=== PATIENT | male | born 1945 | race Caucasian/White ===

== ENCOUNTER → 2017-11-15 | Outpatient (CLI) | payer MEDICARE | END | disposition home or self-care (01) | LOC: LABWHC1 06:33 | PROVIDERS: ATTEND Internal Medicine Cardiovascular Disease | DX: I25.10 Atherosclerotic heart disease of native coronary artery without angina pectoris (principal) | CPT/HCPCS: 36415; 83704 ==

== ENCOUNTER → 2022-12-19 | Outpatient (CLI) | payer MEDICARE ==
--- NOTE | 2022-12-20 20:11 | MR ---
EXAMINATION TYPE: MR brain wo/w con DATE OF EXAM: 12/19/2022 8:22 PM CLINICAL INDICATION:Male, 77 years old with history of I63.9; Stroke, hit his head in a fall, forgetf ul COMPARISON: MRI brain 09/10/2015 TECHNIQUE: Multi planar, multi sequence imaging was performed through the brain including: T1, T2, In version recovery, susceptibility weighted imaging and gradient echo imaging and Diffusion weighted im aging. The patient was then given intravenous contrast and multi planar, T1 fat-saturation images wer e obtained. IV Contrast: 9 cc Gadavist FINDINGS: Cerebral atrophy with proportional dilation of the ventricular system. Diffusion-weighted imaging ozzie ws no evidence of restricted diffusion to suggest acute/subacute infarct. Intracranial arterial flow voids are maintained. Midline structures show no abnormality. Scattered foci and confluent areas of h igh T2 signal intensity are seen within the periventricular white matter. The susceptibility weighted images do not reveal any evidence for micro-hemorrhage. After administration of gadolinium, no abnor mal enhancement is seen. The bone marrow signal is within normal limits. Paranasal sinuses and mastoid air cells: Mucosal thickening of the left maxillary sinus. Trace bilate ral high T2 signal within the mastoid air cells. Visualized orbits: Orbital contents are intact. IMPRESSION: 1. No evidence of intracranial mass, acute/subacute infarct, or abnormal enhancement. 2. Nonspecific white matter changes, these have mildly progressed from 2016. Likely related to small vessel ischemic disease 3. Trace mastoid air cell effusions bilaterally.
== END | disposition home or self-care (01) ==
LOC: RADMRIMAIN 19:06
PROVIDERS: ATTEND Internal Medicine Geriatric Medicine
DX: I63.9 Cerebral infarction, unspecified (principal); I48.91 Unspecified atrial fibrillation; R90.82 White matter disease, unspecified
CPT/HCPCS: 70553; A9585

== ENCOUNTER → 2023-01-04 | Outpatient (CLI) | payer MEDICARE ==
--- NOTE | 2023-01-04 15:38 | US ---
EXAMINATION TYPE: US carotid duplex BILAT DATE OF EXAM: 01/04/2023 COMPARISON: Carotid ultrasound 09/13/2014 CLINICAL INDICATION: Male, 77 years old with history of I639 STROKE; Patient states having history of stroke. TECHNIQUE: Carotid duplex ultrasound examination. Indirect Doppler criteria was utilized. FINDINGS: EXAM MEASUREMENTS: RIGHT: Peak Systolic Velocity (PSV) cm/sec ----- Right CCA: 45.9 ----- Right ICA: 87.4 ----- Right ECA: 58.3 ICA/CCA ratio: 1.9 RIGHT: End Diastole cm/sec ----- Right CCA: 15.1 ----- Right ICA: 31.9 ----- Right ECA: 8.5 LEFT: Peak Systolic Velocity (PSV) cm/sec ----- Left CCA: 57.3 ----- Left ICA: 57.7 ----- Left ECA: 50.3 ICA/CCA ratio: 1.0 LEFT: End Diastole cm/sec ----- Left CCA: 15.0 ----- Left ICA: 27.4 ----- Left ECA: 0.0 VERTEBRALS (direction of flow): Right Vertebral: Antegrade Left Vertebral: Antegrade Rhythm: Arrhythmia RD PROJECT MANAGER NOTES: No significant stenosis and elevated velocities seen. Plaque and wall thickening seen in left bulb. IMPRESSION: Mild atherosclerotic plaque within the left carotid bulb. No ultrasound evidence for hemodynamically significant stenosis of the bilateral internal carotid arteries. Criteria for Assigning % of Stenosis / Diameter reduction (Estimation based on the indirect measurements of the internal carotid artery velocities (ICA PSV). 1. Normal (no stenosis)=ICA PSV < 125 cm/s: ratio < 2.0: ICA EDV<40 cm/s. 2. Less than 50% stenosis=ICA PSV < 125 cm/s: ratio < 2.0: ICA EDV<40 cm/s. 3. 50 to 69% stenosis=ICA PSV of 125 to 230 cm/s: ration 2.0 ? 4.0: ICA EDV 40-100 cm/s. 4. Greater than 70% stenosis to near occlusion= ICA PSV > 230 cm/s: ratio > 4.0: ICA EDV > 100 cm/s. 5. Near occlusion= ICA PSV velocities may be low or undetectable: variable ratio and ICA EDV. 6. Total occlusion=unable to detect flow.
--- NOTE | 2023-01-05 18:04 | CA ---
Transthoracic Echo Report Name: Hugh Cortés Age: 77 Gender: M : 1945 Exam Date: 01/04/2023 13:39 Exam Location: [facility] Ht (in): 70 Wt (lb): 190 Ordering Physician: Delonte Vasquez MD Attending/Referring Phys: Layer Out Elayne Santos RDCS Procedure CPT: Indications: I48.91, I63.9 Cardiac Hx: Technical Quality: Technically difficult study Contrast 1: Lumason Total Dose (mL): 4 Contrast 2: Total Dose (mL): MEASUREMENTS (Male / Female) Normal Values 2D ECHO LV Diastolic Diameter PLAX 3.9 cm 4.2 - 5.9 / 3.9 - 5.3 cm LV Systolic Diameter PLAX 3.1 cm IVS Diastolic Thickness 1.3 cm 0.6 - 1.0 / 0.6 - 0.9 cm LVPW Diastolic Thickness 1.2 cm 0.6 - 1.0 / 0.6 - 0.9 cm LV Relative Wall Thickness 0.6 RV Internal Dim ED PLAX 3.1 cm LV Diastolic Volume MOD BP 65.7 cm??? 67 - 155 / 56 - 104 cm??? LV Systolic Volume MOD BP 30.9 cm??? 22 - 58 / 19 - 49 cm??? LV Ejection Fraction MOD BP 53.0 % >= 55 % LV Cardiac Index MOD BP 1893.9 cm???/min???m??? LV Diastolic Volume MOD 4C 73.2 cm??? LV Systolic Volume MOD 4C 27.7 cm??? LV Ejection Fraction MOD 4C 62.2 % LV Cardiac Index MOD 4C 2475.2 cm???/min???m??? LV Diastolic Length 4C 8.0 cm LV Systolic Length 4C 6.3 cm LV Diastolic Volume MOD 2C 52.2 cm??? LV Systolic Volume MOD 2C 33.6 cm??? LV Ejection Fraction MOD 2C 35.6 % LV Cardiac Index MOD 2C 1011.5 cm???/min???m??? LV Diastolic Length 2C 6.9 cm LV Systolic Length 2C 6.0 cm LA Volume 61.6 cm??? 18 - 58 / 22 - 52 cm??? DOPPLER AV Peak Velocity 117.4 cm/s AV Peak Gradient 5.5 mmHg LVOT Peak Velocity 81.1 cm/s LVOT Peak Gradient 2.6 mmHg MV E' Velocity 5.6 cm/s TR Peak Velocity 205.5 cm/s TR Peak Gradient 16.9 mmHg Right Ventricular Systolic Press 21.4 mmHg FINDINGS Left Ventricle Mildly increased left ventricular wall thickness. Left ventricular cavity size normal. No obvious regional wall motion abnormalities. Borderline left ventricular systolic function..left ventricular ejection fraction is estimated at 50-55 %. Right Ventricle Normal right ventricular size and function. Right ventricular systolic pressure within normal limits. Right Atrium Normal right atrial size. Left Atrium Mildly increased left atrial volume. Mildly increased left atrial area. Mitral Valve Structurally normal mitral valve. Mild mitral regurgitation.mitral annular calcification. Aortic Valve Trileaflet aortic valve. No aortic valve stenosis or regurgitation.aortic valve sclerosis. Tricuspid Valve Structurally normal tricuspid valve. Mild tricuspid regurgitation. Pulmonic Valve Trace pulmonic regurgitation. Pericardium No pericardial effusion. Aorta Normal size aortic root and proximal ascending aorta. CONCLUSIONS 1. Normal left ventricular size with borderline systolic function 2. Mild mitral and tricuspid regurgitation with normal right ventricular systolic pressure. Previewed by: Dr. Ancelmo Lindsay MD (Electronically Signed) Final Date: 05 January 2023 18:03
== END | disposition home or self-care (01) ==
LOC: RADECHMAIN 13:25
PROVIDERS: ATTEND Internal Medicine Geriatric Medicine
DX: I65.22 Occlusion and stenosis of left carotid artery (principal); I48.91 Unspecified atrial fibrillation; I63.9 Cerebral infarction, unspecified
CPT/HCPCS: 93880; C8929; Q9950; 93306

== ENCOUNTER 2023-03-15 09:48 | Observation (INO) | payer MEDICARE ==
[2023-03-15 09:57] LABS: Glucose,Whole Blood 122 mg/dL (70-110)
[2023-03-15] MEDS ORDERED: SODIUM CHLORIDE 0.9% 500 ML 500 ML IV STA (10:11)
[2023-03-15] MEDS ORDERED: DIPH,PERTUS(ACELL)TETVAC-LF 0.5 ML VIAL IM ONE (10:12)
--- NOTE | 2023-03-15 10:17 | ED ---
General Adult HPI - General Chief complaint: Syncope Stated complaint: Syncope Time Seen by Provider: 03/15/23 09:59 Source: patient, family, RN notes reviewed, old records reviewed Mode of arrival: wheelchair Limitations: no limitations - History of Present Illness Initial comments: 78-year-old male presents for evaluation of syncope. Patient reported that he did not feel well to his possible nausea without vomiting. He had stood up from the table and passed out with head injury and scalp laceration. Patient denies current anticoagulation. He has a history of coronary artery disease status post bypass. No central chest pain. No palpitations. No current nausea. No vomiting. No diarrhea. No fever. - Related Data Previous Rx's Medication Instructions Recorded Amiodarone [Cordarone] 200 mg PO TID #90 tab 09/22/14 Aspirin EC [Ecotrin Low Dose] 81 mg PO DAILY #30 tablet. 09/22/14 Atorvastatin [Lipitor] 80 mg PO DAILY #30 tab 09/22/14 HYDROcodone/APAP 7.5-325MG [[place] 1 each PO Q4H PRN #30 tab 09/22/14 7.5-325] Metoprolol Tartrate [Lopressor] 25 mg PO TID #90 tab 09/22/14 Allergies Allergy/AdvReac Type Severity Reaction Status Date / Time No Known Allergies Allergy Verified 03/15/23 12:10 Review of Systems ROS Statement: Those systems with pertinent positive or pertinent negative responses have been documented in the HPI. ROS Other: All systems not noted in ROS Statement are negative. Past Medical History Past Medical History: Sleep Apnea/CPAP/BIPAP Additional Past Medical History / Comment(s): 09/12/14 Pt presented to [facility] ER with chest heavinessand feeling woozy- nausea, while exercising at the [employer] today. Other HX: KAMRAN-pt has CPAP and a mouth ashley for this-he does not use either very much because they don't seem to help, sinusitis, sinus headaches, nasal fracture as a young man, sleep disturbance. History of Any Multi-Drug Resistant Organisms: None Reported Past Surgical History: Adenoidectomy, Tonsillectomy Additional Past Surgical History / Comment(s): PMH: INSOMNIA Past Anesthesia/Blood Transfusion Reactions: No Reported Reaction Past Psychological History: No Psychological Hx Reported Smoking Status: Never smoker Past Alcohol Use History: None Reported Past Drug Use History: None Reported - Past Family History Father Family Medical History: Coronary Artery Disease (CAD), Myocardial Infarction (MO) Additional Family Medical History / Comment(s): Father of a MO at 47 yrs of age. Mother Family Medical History: Cancer Additional Family Medical History / Comment(s): Mother of lung cancer at age 71yrs. General Exam General appearance: alert, in no apparent distress Head exam: Present: other (3 cm occipital laceration with minimal bleeding) Eye exam: Present: normal appearance, PERRL Neck exam: Present: normal inspection. Absent: tenderness, meningismus Respiratory exam: Present: normal lung sounds bilaterally. Absent: respiratory distress Cardiovascular Exam: Present: tachycardia, irregular rhythm GI/Abdominal exam: Present: soft. Absent: distended, tenderness, guarding Extremities exam: Present: normal inspection, normal capillary refill. Absent: pedal edema, calf tenderness Neurological exam: Present: alert, oriented X3, CN II-XII intact. Absent: motor sensory deficit Psychiatric exam: Present: normal affect, normal mood Skin exam: Present: warm, dry. Absent: cyanosis, diaphoretic Course Vital Signs 03/15/23 09:50 Temperature 97.5 F L Pulse Rate 125 H Respiratory 18 Rate Blood Pressure 124/69 O2 Sat by Pulse 98 Oximetry Procedures - Laceration Laceration #1 Consent Obtained: verbal consent Indication: laceration Site: scalp Size (cm): 3 Description: linear Pre-repair: wound explored, irrigated extensively, deep structures intact Type of Sutures: other (Placido) Number of Sutures: 3 Technique: simple, interrupted Patient Tolerated Procedure: well Medical Decision Making - Medical Decision Making Was pt. sent in by a medical professional or institution (, PA, TAX CREDIT LEASING CONSULTANT, urgent care, hospital, or longterm...) When possible be specific @ -No Did you speak to anyone other than the patient for history (EMS, parent, family, police, friend...)? What history was obtained from this source @ -No Did you review nursing and triage notes (agree or disagree)? Why? @ -I reviewed and agree with nursing and triage notes Were old charts reviewed (outside hosp., previous admission, EMS record, old EKG, old radiological studies, urgent care reports/EKG's, longterm records)? Report findings @ -No old charts were reviewed Differential Diagnosis (chest pain, altered mental status, abdominal pain women, abdominal pain men, vaginal bleeding, weakness, fever, dyspnea, syncope, headache, dizziness, GI bleed, back pain, seizure, CVA, palpatations, mental health, musculoskeletal)? @ Differential Syncope: Valvular disease, hypertrophic cardiomyopathy, pulmonary embolism, tamponade, tachycardia, bradycardia, MO, hypovolemia, hemorrhage, dissection, anemia, intracranial hemorrhage, seizure, hypoglycemia, carbon monoxide poisoning, this is not meant to be an all-inclusive list. EKG interpreted by me (3pts min.). @ -[Atrial flutter with cerebral AV block, rate of 108, QRS duration 122, QTC [address] segment elevation. X-rays interpreted by me (1pt min.). @ -[Chest x-ray negative for acute cardio pulmonary findings. CT interpreted by me (1pt min.). @CT negative for intracranial hemorrhage or mass effect U/S interpreted by me (1pt. min.). @ -None done What testing was considered but not performed or refused? (CT, X-rays, U/S, labs)? Why? @ -None What meds were considered but not given or refused? Why? @ -None Did you discuss the management of the patient with other professionals (professionals i.e. , PA, TAX CREDIT LEASING CONSULTANT, lab, RT, psych nurse, social media project manager, news video editor, teacher, collection officer, immigration case worker)? Give summary @ Dr. Corrigan Was smoking cessation discussed for >3mins.? @ -No Was critical care preformed (if so, how long)? @ Yes with 35 minutes Were there social determinants of health that impacted care today? How? (Homelessness, low income, unemployed, alcoholism, drug addiction, transportation, low edu. Level, literacy, decrease access to med. care, detention, rehab)? @ -No Was there de-escalation of care discussed even if they declined (Discuss DNR or withdrawal of care, Hospice)? DNR status @ -No What co-morbidities impacted this encounter? (DM, HTN, Smoking, COPD, CAD, Cancer, CVA, ARF, Chemo, Hep., AIDS, mental health diagnosis, sleep apnea, morbid obesity)? @ -Coronary artery disease Was patient admitted / discharged? Hospital course, mention meds given and route, prescriptions, significant lab abnormalities, going to OR and other pertinent info. @ -[78-year-old male presents after syncopal episode. Patient found to be in atrial flutter with rapid ventricular response. No prior history. No chest pain, no dyspnea, no palpitations. He did have a head injury with occipital laceration. This is repaired with [address] is negative for intracranial hemorrhage. Patient's rate is down trending while in the emergency department without treatment.. Hold anticoagulation at this time secondary to head trauma. Will admit for telemetry, cardiology consultation, echo. Undiagnosed new problem with uncertain prognosis? @ -No Drug Therapy requiring intensive monitoring for toxicity (Heparin, Nitro, Insulin, Cardizem)? @ -No Were any procedures done? @ -[Yes, laceration repair Diagnosis/symptom? @ -[Syncope, atrial flutter new-onset Acute, or Chronic, or Acute on Chronic? @ -[Acute Uncomplicated (without systemic symptoms) or Complicated (systemic symptoms)? @ -[Complicated Side effects of treatment? @ -No Exacerbation, Progression, or Severe Exacerbation? @ -No Poses a threat to life or bodily function? How? (Chest pain, USA, MO, pneumonia, PE, COPD, DKA, ARF, appy, cholecystitis, CVA, Diverticulitis, Homicidal, S uicidal, threat to staff... and all critical care pts) @ -[Yes, syncope, arrhythmia - Lab Data Result diagrams: 03/15/23 10:21 03/15/23 10:21 Lab Results 03/15/23 03/15/23 03/15/23 Range/Units 09:55 10:21 10:21 WBC 13.8 H (3.8-10.6) k/uL RBC 4.41 (4.30-5.90) m/uL Hgb 15.0 (13.0-17.5) gm/dL Hct 45.3 (39.0-53.0) % MCV 102.5 H (80.0-100.0) fL MCH 34.0 (25.0-35.0) pg MCHC 33.1 (31.0-37.0) g/dL RDW 13.9 (11.5-15.5) % Plt Count 191 (150-450) k/uL MPV 7.5 Neutrophils % 81 % Lymphocytes % 13 % Monocytes % 3 % Eosinophils % 1 % Basophils % 0 % Neutrophils # 11.2 H (1.3-7.7) k/uL Lymphocytes # 1.8 (1.0-4.8) k/uL Monocytes # 0.5 (0-1.0) k/uL Eosinophils # 0.2 (0-0.7) k/uL Basophils # 0.0 (0-0.2) k/uL Macrocytosis Slight PT (9.0-12.0) sec INR (<1.2) APTT (22.0-30.0) sec Sodium 138 (137-145) mmol/L Potassium 4.3 (3.5-5.1) mmol/L Chloride 102 (98-107) mmol/L Carbon Dioxide 27 (22-30) mmol/L Anion Gap 9 mmol/L BUN 20 (9-20) mg/dL Creatinine 1.02 (0.66-1.25) mg/dL Est GFR (CKD-EPI)AfAm 81 (>60 ml/min/1.73 sqM) Est GFR (CKD-EPI)NonAf 70 (>60 ml/min/1.73 sqM) Glucose 137 H (74-99) mg/dL POC Glucose (mg/dL) 122 H (70-110) mg/dL POC Glu Wet Finisher ID September Calcium 9.1 (8.4-10.2) mg/dL Magnesium 2.4 H (1.6-2.3) mg/dL Total Bilirubin 1.4 H (0.2-1.3) mg/dL AST 28 (17-59) U/L ALT 18 (4-49) U/L Alkaline Phosphatase 99 (38-126) U/L Troponin I (0.000-0.034) ng/mL Total Protein 7.7 (6.3-8.2) g/dL Albumin 4.1 (3.5-5.0) g/dL TSH 4.320 (0.465-4.680) mIU/L Urine Color Urine Appearance (Clear) Urine pH (5.0-8.0) Ur Specific [place] (1.001-1.035) Urine Protein (Negative) Urine Glucose (UA) (Negative) Urine Ketones (Negative) Urine Blood (Negative) Urine Nitrite (Negative) Urine Bilirubin (Negative) Urine Urobilinogen (<2.0) mg/dL Ur Leukocyte Esterase (Negative) 03/15/23 03/15/23 03/15/23 Range/Units 10:21 10:21 10:54 WBC (3.8-10.6) k/uL RBC (4.30-5.90) m/uL Hgb (13.0-17.5) gm/dL Hct (39.0-53.0) % MCV (80.0-100.0) fL MCH (25.0-35.0) pg MCHC (31.0-37.0) g/dL RDW (11.5-15.5) % Plt Count (150-450) k/uL MPV Neutrophils % % Lymphocytes % % Monocytes % % Eosinophils % % Basophils % % Neutrophils # (1.3-7.7) k/uL Lymphocytes # (1.0-4.8) k/uL Monocytes # (0-1.0) k/uL Eosinophils # (0-0.7) k/uL Basophils # (0-0.2) k/uL Macrocytosis PT 12.1 H (9.0-12.0) sec INR 1.2 H (<1.2) APTT 25.2 (22.0-30.0) sec Sodium (137-145) mmol/L Potassium (3.5-5.1) mmol/L Chloride (98-107) mmol/L Carbon Dioxide (22-30) mmol/L Anion Gap mmol/L BUN (9-20) mg/dL Creatinine (0.66-1.25) mg/dL Est GFR (CKD-EPI)AfAm (>60 ml/min/1.73 sqM) Est GFR (CKD-EPI)NonAf (>60 ml/min/1.73 sqM) Glucose (74-99) mg/dL POC Glucose (mg/dL) (70-110) mg/dL POC Glu Wet Finisher ID Calcium (8.4-10.2) mg/dL Magnesium (1.6-2.3) mg/dL Total Bilirubin (0.2-1.3) mg/dL AST (17-59) U/L ALT (4-49) U/L Alkaline Phosphatase (38-126) U/L Troponin I <0.012 (0.000-0.034) ng/mL Total Protein (6.3-8.2) g/dL Albumin (3.5-5.0) g/dL TSH (0.465-4.680) mIU/L Urine Color Light Yellow Urine Appearance Clear (Clear) Urine pH 6.5 (5.0-8.0) Ur Specific [place] 1.012 (1.001-1.035) Urine Protein Negative (Negative) Urine Glucose (UA) Negative (Negative) Urine Ketones Negative (Negative) Urine Blood Negative (Negative) Urine Nitrite Negative (Negative) Urine Bilirubin Negative (Negative) Urine Urobilinogen <2.0 (<2.0) mg/dL Ur Leukocyte Esterase Negative (Negative) Critical Care Time Critical Care Time: Yes Total Critical Care Time: 35 Disposition Clinical Impression: New onset atrial flutter, Syncope Disposition: ADMITTED IP TO THIS [facility] Condition: Stable Is patient prescribed a controlled substance at d/c from ED?: No Referrals: Delonte Vasquez MD [Primary Care Provider] - 1-2 days Time of Disposition: 12:13
[2023-03-15 10:30] LABS: Basophils % (A) 0 %; Eosinophils # (A) 0.2 k/uL (0-0.7); Eosinophils % (A) 1 %; HCT 45.3 % (39.0-53.0); Lymphocytes # (A) 1.8 k/uL (1.0-4.8); Lymphocytes % (A) 13 %; MCHC 33.1 g/dL (31.0-37.0); MCV 102.5 fL (80.0-100.0); Macrocytosis Slight; Mean Platelet Volume 7.5; Monocytes # (A) 0.5 k/uL (0-1.0); Monocytes % (A) 3 %; Neutrophils # (A) 11.2 k/uL (1.3-7.7); Neutrophils % (A) 81 %; Platelet Count 191 k/uL (150-450); RBC 4.41 m/uL (4.30-5.90); RDW 13.9 % (11.5-15.5); WBC 13.8 k/uL (3.8-10.6)
--- NOTE | 2023-03-15 10:45 | CT ---
EXAMINATION TYPE: CT brain cspine wo con CT DLP: 1389.4 mGycm, Automated exposure control for dose reduction was used. DATE OF EXAM: 03/15/2023 10:33 AM COMPARISON: None. CLINICAL INDICATION:Male, 78 years old with history of syncope; syncope with fall, lac to posterior h ead TECHNIQUE: Brain: Multiple axial CT images of the brain were obtained without IV contrast. Cspine: Axial CT images from the skull base to the inferior aspect of T2 we obtained without intraven ous contrast. Coronal and sagittal reformatted images were also reviewed. FINDINGS: Brain: Extra-axial spaces: No abnormal extra-axial fluid collections. Ventricular system: Dilatation in proportion to cerebral atrophy. Cerebral parenchyma: No acute intraparenchymal hemorrhage or mass effect. The bryant-white junction is well differentiated. Scattered hypoattenuating areas are seen within the white matter. Cerebellum: Unremarkable. Mass effect: No evidence of midline shift. Intracranial vasculature: Atherosclerotic calcifications of the intracranial vessels. Soft tissues: Posterior scalp laceration present. No evidence of fracture. Calvarium/osseous structures: No depressed skull fracture. Paranasal sinuses and mastoid air cells: Clear. Visualized orbits: Orbital contents are intact. Cervical spine: Fracture: None comment remote left rib one fracture with callus formation. Osseous structures: Multilevel degenerative disc disease changes with endplate spurring and disc oste ophyte complex's. Vertebral alignment: Within normal limits. Spinal canal/Neural Foramina: No evidence of significant spinal canal narrowing. No evidence for sign ificant neural foraminal stenosis. Neck soft tissues: Prevertebral soft tissues are within normal limits. Other: The airway is patent. The lung apices are clear. Atherosclerosis of the carotid bifurcations. IMPRESSION: 1. No acute intracranial process. 2. Nonspecific white matter changes, likely secondary to chronic small vessel ischemic disease. 3. No evidence of cervical spine fracture. 4. Mild multilevel degenerative disc disease. 5. Posterior scalp laceration present. No evidence of fracture.
--- NOTE | 2023-03-15 10:45 | XR ---
EXAMINATION TYPE: XR chest 2V DATE OF EXAM: 03/15/2023 10:38 AM COMPARISON: Chest radiographs from 09/22/2014 TECHNIQUE: XR chest 2V Frontal and lateral views of the chest. CLINICAL INDICATION:Male, 78 years old with history of syncope; FINDINGS: Lungs/Pleura: There is no evidence of pleural effusion, focal consolidation, or pneumothorax. Pulmonary vascularity: Unremarkable. Heart/mediastinum: Cardiomediastinal silhouette is enlarged and stable. Musculoskeletal: Multiple level degenerative disc disease changes seen throughout the spine. Midline sternotomy wires are noted and stable. IMPRESSION: Chronic changes without acute pulmonary process. No significant change from prior.
[2023-03-15 10:47] LABS: ALT 18 U/L (4-49); AST 28 U/L (17-59); African American GFR (CKD) 81 (>60 ml/min/1.73 sqM); Albumin 4.1 g/dL (3.5-5.0); Alkaline Phosphatase 99 U/L (38-126); Anion Gap 9 mmol/L; Blood Urea Nitrogen 20 mg/dL (9-20); Calcium 9.1 mg/dL (8.4-10.2); Carbon Dioxide 27 mmol/L (22-30); Chloride 102 mmol/L (98-107); Glucose 137 mg/dL (74-99); Magnesium 2.4 mg/dL (1.6-2.3); Non-African American GFR(CKD) 70 (>60 ml/min/1.73 sqM); Potassium 4.3 mmol/L (3.5-5.1); Sodium 138 mmol/L (137-145); Total Bilirubin 1.4 mg/dL (0.2-1.3); Total Protein 7.7 g/dL (6.3-8.2)
[2023-03-15 11:20] LABS: Appearance,Urine Clear (Clear); Bilirubin,Urine Negative (Negative); Blood,Urine Negative (Negative); Color,Urine Light Yellow; Glucose,Urine (UA) Negative (Negative); Ketones,Urine Negative (Negative); Leukocyte Esterase,Urine Negative (Negative); Nitrite,Urine Negative (Negative); PH, Urine 6.5 (5.0-8.0); Protein,Urine Negative (Negative); Specific Gravity,Urine 1.012 (1.001-1.035); Urobilinogen,Urine <2.0 mg/dL (<2.0)
[2023-03-15 11:38] LABS: INR 1.2 (<1.2); Partial Thromboplastin Time 25.2 sec (22.0-30.0); Prothrombin Time 12.1 sec (9.0-12.0)
[2023-03-15] MEDS ORDERED: ONDANSETRON 4 MG/2 ML VIAL IVP PRN (12:08)
[2023-03-15] MEDS ORDERED: NALOXONE 0.4 MG/ML 1 ML VIAL IV PRN (12:08)
[2023-03-15] MEDS ORDERED: ACETAMINOPHEN TAB 325 MG TAB PO PRN (12:08)
[2023-03-15] MEDS: METOPROLOL TARTRATE 50 MG TAB PO SCH (17:01)
--- NOTE | 2023-03-15 18:12 | CA ---
Transthoracic Echo Report Name: Hugh Cortés Age: 78 Gender: M : 1945 Exam Date: 03/15/2023 13:57 Exam Location: [facility] Ht (in): 70 Wt (lb): 200 Ordering Physician: Ricky Son MD Attending/Referring Phys: [id number], Adelaida [employer] Supervisor Ta Rodriguez Procedure CPT: Indications: Syncope Cardiac Hx: Technical Quality: Fair Contrast 1: Total Dose (mL): Contrast 2: Total Dose (mL): MEASUREMENTS (Male / Female) Normal Values 2D ECHO LV Diastolic Diameter PLAX 4.4 cm 4.2 - 5.9 / 3.9 - 5.3 cm LV Systolic Diameter PLAX 3.2 cm IVS Diastolic Thickness 1.1 cm 0.6 - 1.0 / 0.6 - 0.9 cm LVPW Diastolic Thickness 1.2 cm 0.6 - 1.0 / 0.6 - 0.9 cm LV Relative Wall Thickness 0.5 RV Internal Dim ED PLAX 3.1 cm LVOT Diameter 2.2 cm Aortic Root Diameter 3.2 cm LA Systolic Diameter LX 3.5 cm 3.0 - 4.0 / 2.7 - 3.8 cm LV Diastolic Volume MOD BP 41.4 cm??? 67 - 155 / 56 - 104 cm??? LV Systolic Volume MOD BP 22.3 cm??? 22 - 58 / 19 - 49 cm??? LV Ejection Fraction MOD BP 46.3 % >= 55 % LV Cardiac Index MOD BP 986.9 cm???/min???m??? LV Diastolic Volume MOD 4C 38.6 cm??? LV Systolic Volume MOD 4C 22.1 cm??? LV Ejection Fraction MOD 4C 42.9 % LV Cardiac Index MOD 4C 853.3 cm???/min???m??? LV Diastolic Length 4C 6.5 cm LV Systolic Length 4C 6.0 cm LV Diastolic Volume MOD 2C 43.0 cm??? LV Systolic Volume MOD 2C 22.5 cm??? LV Ejection Fraction MOD 2C 47.7 % LV Cardiac Index MOD 2C 1055.3 cm???/min???m??? LV Diastolic Length 2C 6.7 cm LV Systolic Length 2C 6.0 cm LA Volume 46.3 cm??? 18 - 58 / 22 - 52 cm??? LA Volume Index 21.7 cm???/m??? 16 - 28 cm???/m??? Ascending Aorta Diameter 3.4 cm DOPPLER AV Peak Velocity 96.2 cm/s AV Peak Gradient 3.7 mmHg AI Peak Velocity 150.4 cm/s AI Peak Gradient 9.0 mmHg AI Pressure Half Time 946.1 ms LVOT Peak Velocity 81.9 cm/s LVOT Peak Gradient 2.7 mmHg LVOT Velocity Time Integral 11.8 cm LVOT Stroke Volume 44.3 cm??? LVOT Stroke Volume Index 21.2 ml/m??? LVOT Cardiac Index 2279.5 cm???/min???m??? AV Area Cont Eq pk 3.2 cm??? MV Peak Velocity 124.4 cm/s MV Peak Gradient 6.2 mmHg MV Mean Velocity 58.8 cm/s MV Mean Gradient 1.8 mmHg MV Velocity Time Integral 21.6 cm Mitral E Point Velocity 106.4 cm/s Mitral A Point Velocity 29.2 cm/s Mitral E to A Ratio 3.6 MV Deceleration Time 200.3 ms MV E' Velocity 3.1 cm/s Mitral E to MV E' Ratio 34.5 TR Peak Velocity 200.9 cm/s TR Peak Gradient 16.1 mmHg Right Ventricular Systolic Press 21.1 mmHg PV Peak Velocity 68.9 cm/s PV Peak Gradient 1.9 mmHg FINDINGS Left Ventricle Normal LV size. Mild concentric LVH. Left ventricular ejection fraction is estimated at40-45 %. Right Ventricle Normal right ventricular size. RVSP= 21mmHg. Right Atrium Normal right atrial size. Left Atrium Left atrial size at the upper limits of normal. Mitral Valve Mild mitral annulus calcification. Aortic Valve Trileaflet aortic valve. Mild AV calcification. Mild AI. Tricuspid Valve Tricuspid valve not well visualized. Mild TR. Pulmonic Valve Pulmonic valve not well visualized. Mild PI. Pericardium Normal pericardium. Aorta Normal size aortic root CONCLUSIONS Mild to moderate LV dysfunction with an ejection fraction of 40-45% Mild aortic regurgitation Previewed by: Dr. Ryan Terry MD (Electronically Signed) Final Date: 15 March 2023 18:11
[2023-03-15] MEDS: oxyBUTYnin chloride 5 MG TAB PO SCH (19:53)
[2023-03-15] MEDS: allopurinoL 100 MG TAB PO SCH (19:53)
[2023-03-15] MEDS ORDERED: traZODone HCL 100 MG TAB PO SCH (21:00)
[2023-03-15] MEDS: APIXABAN 5 MG TAB PO SCH (21:00)
--- NOTE | 2023-03-15 23:00 | P.HPIM ---
History of Present Illness H&P Date: 03/15/23 Chief Complaint: Syncope Patient is a 78-year-old male with a past medical history of obstructive sleep apnea on CPAP at home, coronary artery disease status post CABG in 2015, postoperative atrial fibrillation on anticoagulation with Eliquis and metoprolol presents to ER status post syncopal episode. Patient states that he was trying to get out of the chair and suddenly passed out and hit his head on the back. Patient had posterior scalp laceration. Patient states that he is not feeling well even before trying to get up. Patient was able to get up with the help of his and his mentation is back to baseline. Denies any weakness. No witnessed seizures. No bowel or bladder incontinence.Otherwise no complaints of chest pain or shortness of breath. No palpitations. No nausea vomiting or abdominal pain. No diarrhea. No leg swelling.. Denies any fever or chills. No recent illnesses. Patient had recent work-up including MRI and carotid duplex due to fall and hit his head and is also forgetful. EKG showed atrial flutter/tachycardia with rapid ventricular response. Chest x-ray showed chronic changes without acute pulmonary process. No significant change from prior. CT head and cervical spine showed no acute intracranial process. Nonspecific white matter changes likely secondary to chronic small vessel ischemic disease. No evidence of cervical spine fracture. Multilevel mild degenerative disc disease. Posterior scalp laceration present no evidence of fracture. Laboratory data showed WBC 13.8 hemoglobin 15.0 and platelets 191 MCV 102.5 Sodium 138 potassium 4.3 chloride 102 bicarb is 27 BUN 20 and creatinine 1.02 and blood sugar 137. Magnesium 2.4 and total bilirubin level is 1.4 AST 28 ALT 18 and alk phos 99 and troponin x1 negative. TSH level is 4.32 Urinalysis is negative for infection. Past Medical History Past Medical History: Sleep Apnea/CPAP/BIPAP Additional Past Medical History / Comment(s): 09/12/14 Pt presented to [facility] ER with chest heavinessand feeling woozy- nausea, while exercising at the [employer] today. Other HX: KAMRAN-pt has CPAP and a mouth ashley for this-he does not use either very much because they don't seem to help, sinusitis, sinus headaches, nasal fracture as a young man, sleep disturbance. History of Any Multi-Drug Resistant Organisms: None Reported Past Surgical History: Adenoidectomy, Tonsillectomy Additional Past Surgical History / Comment(s): PMH: INSOMNIA Past Anesthesia/Blood Transfusion Reactions: No Reported Reaction Past Psychological History: No Psychological Hx Reported Smoking Status: Never smoker Past Alcohol Use History: None Reported Past Drug Use History: None Reported - Past Family History Father Family Medical History: Coronary Artery Disease (CAD), Myocardial Infarction ([place]) Additional Family Medical History / Comment(s): Father of a [place] at 47 yrs of age. Mother Family Medical History: Cancer Additional Family Medical History / Comment(s): Mother of lung cancer at age 71yrs. Medications and Allergies Home Medications Medication Instructions Recorded Confirmed Type Apixaban [Eliquis] 5 mg PO BID 03/15/23 03/15/23 History Furosemide [Lasix] 60 mg PO DAILY 03/15/23 03/15/23 History Metoprolol Tartrate [Lopressor] 50 mg PO BID-W/MEALS 03/15/23 03/15/23 History Potassium Chloride ER [K-Dur 10] 10 meq PO DAILY 03/15/23 03/15/23 History Rivastigmine Tartrate [Exelon] 4.5 mg PO BID 03/15/23 03/15/23 History Spironolactone [Aldactone] 25 mg PO DAILY 03/15/23 03/15/23 History allopurinoL [Zyloprim] 100 mg PO BID 03/15/23 03/15/23 History oxyBUTYnin chloride [Ditropan] 5 mg PO BID 03/15/23 03/15/23 History rOPINIRole HCL [Requip] 1 - 2 mg PO HS 03/15/23 03/15/23 History traZODone HCL 100 mg PO HS 03/15/23 03/15/23 History Allergies Allergy/AdvReac Type Severity Reaction Status Date / Time No Known Allergies Allergy Verified 03/15/23 12:10 Physical Exam Vitals: Vital Signs Temp Pulse Resp BP Pulse Ox 03/15/23 12:00 106 H 20 101/81 97 03/15/23 11:00 112 H 20 107/82 97 03/15/23 10:04 125 H 22 109/97 98 03/15/23 09:50 97.5 F L 125 H 18 124/69 98 Intake and Output 03/14/23 03/15/23 03/15/23 22:59 06:59 14:59 Other: Weight 90.718 kg PHYSICAL EXAMINATION: Patient is lying in the bed comfortably, no acute distress, awake alert and oriented.. HEENT: Normocephalic. Posterior scalp laceration. Neck is supple. Pupils reactive. Nostrils clear. Oral cavity is moist. Neck reveals no JVD, carotid bruits, or thyromegaly. CHEST EXAMINATION: Trachea is central. Symmetrical expansion. Lung steele clear to auscultation and percussion. CARDIAC: Normal S1, S2 with no gallops. No murmurs. Irregularly irregular rhythm. ABDOMEN: Soft. Bowel sounds present. Nontender. No organomegaly. No abdominal bruits. Extremities: reveal no edema. No clubbing or cyanosis Neurologically awake, alert, oriented x3 with well-coordinated movements. No gross focal deficits noted Skin: No rash or skin lesions. Psychiatric: Coperative. Nonsuicidal, Musculoskeletal: No joint swelling or deformity. Normal range of motion. Results CBC & Chem 7: 03/15/23 10:21 03/15/23 10:21 Labs: Abnormal Lab Results - Last 24 Hours (Table) 03/15/23 03/15/23 03/15/23 Range/Units 09:55 10:21 10:21 WBC 13.8 H (3.8-10.6) k/uL MCV 102.5 H (80.0-100.0) fL Neutrophils # 11.2 H (1.3-7.7) k/uL PT (9.0-12.0) sec INR (<1.2) Glucose 137 H (74-99) mg/dL POC Glucose (mg/dL) 122 H (70-110) mg/dL Magnesium 2.4 H (1.6-2.3) mg/dL Total Bilirubin 1.4 H (0.2-1.3) mg/dL 03/15/23 Range/Units 10:54 WBC (3.8-10.6) k/uL MCV (80.0-100.0) fL Neutrophils # (1.3-7.7) k/uL PT 12.1 H (9.0-12.0) sec INR 1.2 H (<1.2) Glucose (74-99) mg/dL POC Glucose (mg/dL) (70-110) mg/dL Magnesium (1.6-2.3) mg/dL Total Bilirubin (0.2-1.3) mg/dL Thrombosis Risk Factor Assmnt - DVT/VTE Prophylaxis DVT/VTE Prophylaxis: Pharmacologic Prophylaxis ordered Assessment and Plan Assessment: Atrial flutter with rapid ventricular response Acute syncopal episode Leukocytosis likely reactive. Coronary artery disease history of CABG in 2015 Postoperative atrial fibrillation Obstructive sleep apnea on CPAP at home History of insomnia DVT prophylaxis patient is already on Eliquis Plan: Patient will be continued on telemetry monitoring. Started back on metoprolol and titrate dose as needed. Consider Cardizem drip. Continue with anticoagulation. 2D echocardiogram was ordered and cardiology was consulted for evaluation. Wound dressing and follow-up CBC and BMP tomorrow. Discussed with the patient and his at bedside in detail. Time with Patient: Greater than 30
[2023-03-16] MEDS: METOPROLOL TARTRATE 50 MG TAB PO SCH (06:49)
[2023-03-16 08:17] LABS: Basophils % (A) 0 %; Eosinophils # (A) 0.2 k/uL (0-0.7); Eosinophils % (A) 2 %; HCT 44.9 % (39.0-53.0); HGB 14.7 gm/dL (13.0-17.5); Lymphocytes # (A) 2.3 k/uL (1.0-4.8); Lymphocytes % (A) 21 %; MCH 33.7 pg (25.0-35.0); MCHC 32.7 g/dL (31.0-37.0); Macrocytosis Slight; Mean Platelet Volume 8.1; Monocytes # (A) 0.7 k/uL (0-1.0); Monocytes % (A) 6 %; Neutrophils # (A) 7.5 k/uL (1.3-7.7); Neutrophils % (A) 69 %; Platelet Count 194 k/uL (150-450); RBC 4.36 m/uL (4.30-5.90); RDW 14.4 % (11.5-15.5); WBC 10.9 k/uL (3.8-10.6)
[2023-03-16 08:23] LABS: African American GFR (CKD) 71 (>60 ml/min/1.73 sqM); Anion Gap 8 mmol/L; Blood Urea Nitrogen 20 mg/dL (9-20); Calcium 8.7 mg/dL (8.4-10.2); Carbon Dioxide 29 mmol/L (22-30); Chloride 101 mmol/L (98-107); Glucose 91 mg/dL (74-99); Non-African American GFR(CKD) 62 (>60 ml/min/1.73 sqM); Potassium 5.3 mmol/L (3.5-5.1); Sodium 138 mmol/L (137-145)
[2023-03-16] MEDS ORDERED: METOPROLOL TARTRATE 50 MG TAB PO SCH ×2 (09:00→16:00)
[2023-03-16] MEDS ORDERED: DONEPEZIL 10 MG TAB PO SCH (09:00)
[2023-03-16] MEDS: APIXABAN 5 MG TAB PO SCH (09:16)
[2023-03-16] MEDS: oxyBUTYnin chloride 5 MG TAB PO SCH (09:16)
[2023-03-16] MEDS: allopurinoL 100 MG TAB PO SCH (09:16)
[2023-03-16 09:54] VITALS: BP 106/73; PULSE 110; RESP 17; TEMP 97.7
--- NOTE | 2023-03-16 11:54 | P.CRDCN ---
History of Present Illness History of present illness: HISTORY OF PRESENT ILLNESS: This is a 78 year old male with a past medical history significant for coronary artery disease with previous CABG, hypertension, hyperlipidemia,. 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 We have been asked to see the patient in consul tation for atrial flutter with RVR. Patient examined at the bedside. Patient states he was sitting down in a chair. He states he went to stand up and fell hitting his head. He denied having any warning signs. He denied any chest pain or pressure. She denied any shortness of breath. He denied any palpitations. The patient did suffer a laceration to his head and required edna in the emergency room. The patient was found to be in atrial flutter with RVR. The patient denies a history of atrial fibrillation or flutter. However he is anticoagulated on an outpatient basis and is unsure of why. * EKG reveals atrial flutter with RVR * Chest xray chronic changes without acute pulmonary process * Current home cardiac medications include Eliquis 5 mg twice a day, metoprolol tartrate 50 mg twice a day, Lasix 60 mg daily, Aldactone 25 mg daily * Echocardiogram obtained revealing ejection fraction 40-45%, mild AI, mild TR, mild PI REVIEW OF SYSTEMS: At the time of my exam: CONSTITUTIONAL: Denies fever or chills. HEENT: Denies blurred vision, vision changes, or eye pain. Denies hemoptysis CARDIOVASCULAR: Denies chest pain. Denies orthopnea. Denies PND. Denies palpitations RESPIRATORY: Denies shortness of breath. GASTROINTESTINAL: Denies abdominal pain. Denies nausea or vomiting. HEMATOLOGIC: Denies bleeding disorders. GENITOURINARY: Denies any blood in urine. SKIN: Denies pruitis. Denies rash. PHYSICAL EXAM: VITAL SIGNS: Reviewed. GENERAL: Well-developed in no acute distress. HEENT: Head is normocephalic. Pupils are equal, round. Sclerae anicteric. Mucous membranes of the mouth are moist. Neck supple. No JVD or thyromegaly LUNGS: Respirations even and unlabored. Lungs essentially clear to auscultation bilaterally. HEART: Tachycardic. Regular rate and rhythm. S1 and S2 heard. ABDOMEN: Soft. Nondistended. Nontender. EXTREMITIES: Normal range of motion. No clubbing or cyanosis. Peripheral pulses intact. No lower extremity edema NEUROLOGIC: Awake and alert. Oriented x 3. ASSESSMENT: Syncope Atypical atrial flutter with RVR, possibly new onset Coronary artery disease with previous CABG Hypertension Hyperlipidemia PLAN: 2-D echo obtained and reviewed Increase metoprolol to 50 mg 3 times a day Continue additional home cardiac medications Continue telemetry monitoring Further recommendations pending patient's course Nurse practitioner note has been reviewed by physician. Signing provider agrees with the documented findings, assessment, and plan of care. Past Medical History Past Medical History: Sleep Apnea/CPAP/BIPAP Additional Past Medical History / Comment(s): 09/12/14 Pt presented to [facility] ER with chest heavinessand feeling woozy- nausea, while exercising at the [facility] today. Other HX: KAMRAN-pt has CPAP and a mouth ashley for this-he does not use either very much because they don't seem to help, sinusitis, sinus headaches, nasal fracture as a young man, sleep disturbance. History of Any Multi-Drug Resistant Organisms: None Reported Past Surgical History: Adenoidectomy, Tonsillectomy Additional Past Surgical History / Comment(s): PMH: INSOMNIA Past Anesthesia/Blood Transfusion Reactions: No Reported Reaction Past Psychological History: No Psychological Hx Reported Smoking Status: Never smoker Past Alcohol Use History: None Reported Past Drug Use History: None Reported - Past Family History Father Family Medical History: Coronary Artery Disease (CAD), Myocardial Infarction ([place]) Additional Family Medical History / Comment(s): Father of a [place] at 47 yrs of age. Mother Family Medical History: Cancer Additional Family Medical History / Comment(s): Mother of lung cancer at age 71yrs. Medications and Allergies Home Medications Medication Instructions Recorded Confirmed Type Apixaban [Eliquis] 5 mg PO BID 03/15/23 03/15/23 History Furosemide [Lasix] 60 mg PO DAILY 03/15/23 03/15/23 History Rivastigmine Tartrate [Exelon] 4.5 mg PO BID 03/15/23 03/15/23 History Spironolactone [Aldactone] 25 mg PO DAILY 03/15/23 03/15/23 History allopurinoL [Zyloprim] 100 mg PO BID 03/15/23 03/15/23 History oxyBUTYnin chloride [Ditropan] 5 mg PO BID 03/15/23 03/15/23 History rOPINIRole HCL [Requip] 1 - 2 mg PO HS 03/15/23 03/15/23 History traZODone HCL 100 mg PO HS 03/15/23 03/15/23 History Metoprolol Tartrate [Lopressor] 50 mg PO TID #90 tab 03/16/23 Rx Allergies Allergy/AdvReac Type Severity Reaction Status Date / Time No Known Allergies Allergy Verified 03/15/23 12:10 Physical Exam Vitals: Vital Signs Temp Pulse Resp BP Pulse Ox 03/15/23 12:00 106 H 20 101/81 97 03/15/23 11:00 112 H 20 107/82 97 03/15/23 10:04 125 H 22 109/97 98 03/15/23 09:50 97.5 F L 125 H 18 124/69 98 Intake and Output 03/14/23 03/15/23 03/15/23 22:59 06:59 14:59 Other: Weight 90.718 kg Results 03/16/23 07:00 03/16/23 07:00 Cardiac Enzymes 03/15/23 03/15/23 Range/Units 10:21 10:21 AST 28 (17-59) U/L Troponin I <0.012 (0.000-0.034) ng/mL Coagulation 03/15/23 Range/Units 10:54 PT 12.1 H (9.0-12.0) sec APTT 25.2 (22.0-30.0) sec CBC 03/15/23 Range/Units 10:21 WBC 13.8 H (3.8-10.6) k/uL RBC 4.41 (4.30-5.90) m/uL Hgb 15.0 (13.0-17.5) gm/dL Hct 45.3 (39.0-53.0) % Plt Count 191 (150-450) k/uL Comprehensive Metabolic Panel 03/15/23 Range/Units 10:21 Sodium 138 (137-145) mmol/L Potassium 4.3 (3.5-5.1) mmol/L Chloride 102 (98-107) mmol/L Carbon Dioxide 27 (22-30) mmol/L BUN 20 (9-20) mg/dL Creatinine 1.02 (0.66-1.25) mg/dL Glucose 137 H (74-99) mg/dL Calcium 9.1 (8.4-10.2) mg/dL AST 28 (17-59) U/L ALT 18 (4-49) U/L Alkaline Phosphatase 99 (38-126) U/L Total Protein 7.7 (6.3-8.2) g/dL Albumin 4.1 (3.5-5.0) g/dL Current Medications Generic Name Dose Route Start Last Admin Trade Name Freq PRN Reason Stop Dose Admin Acetaminophen 650 mg 03/15/23 12:08 Acetaminophen Tab 325 Mg Tab PO Q6HR PRN Mild Pain or Fever > 100.5 Naloxone HCl 0.2 mg 03/15/23 12:08 Naloxone 0.4 Mg/Ml 1 Ml Vial IV Q2M PRN Opioid Reversal Ondansetron HCl 4 mg 03/15/23 12:08 Ondansetron 4 Mg/2 Ml Vial IVP Q8HR PRN Nausea And Vomiting Intake and Output 03/14/23 03/15/23 03/15/23 22:59 06:59 14:59 Other: Weight 90.718 kg Patient Weight 03/16/23 06:59 Weight 90.718 kg 03/15/23 10:21 03/15/23 10:21
== END 2023-03-16 11:03 | disposition home or self-care (01) ==
LOC: EC 09:48 → 3SCARD 12:09
PROVIDERS: ADMIT Internal Medicine; ATTEND Internal Medicine
DX: R55 Syncope and collapse (principal); S01.01XA Laceration without foreign body of scalp, initial encounter; W18.30XA Fall on same level, unspecified, initial encounter; I48.92 Unspecified atrial flutter; I25.10 Atherosclerotic heart disease of native coronary artery without angina pectoris; G47.33 Obstructive sleep apnea (adult) (pediatric); I48.91 Unspecified atrial fibrillation; G47.00 Insomnia, unspecified; Z95.1 Presence of aortocoronary bypass graft; Z79.899 Other long term (current) drug therapy; Z79.82 Long term (current) use of aspirin; Z79.01 Long term (current) use of anticoagulants; Z82.49 Family history of ischemic heart disease and other diseases of the circulatory system; Z23 Encounter for immunization
CPT/HCPCS: 90471; 99291; 36415; 93005; 93306; 82747; 80053; 80048; 84443; 82607; 83735; 84484; 85025 ×2; 85610; 85730; 81003; 71046; 72125; 70450; 90715; 12002; G0378 ×2

== ENCOUNTER 2023-03-26 14:44 | Observation (INO) | payer MEDICARE ==
[2023-03-26 16:42] LABS: Basophils % (A) 0 %; Eosinophils # (A) 0.2 k/uL (0-0.7); Eosinophils % (A) 2 %; HCT 46.2 % (39.0-53.0); HGB 15.2 gm/dL (13.0-17.5); Lymphocytes # (A) 1.6 k/uL (1.0-4.8); Lymphocytes % (A) 15 %; MCH 33.5 pg (25.0-35.0); MCHC 32.9 g/dL (31.0-37.0); MCV 101.8 fL (80.0-100.0); Macrocytosis Slight; Mean Platelet Volume 8.4; Monocytes # (A) 0.7 k/uL (0-1.0); Monocytes % (A) 6 %; Neutrophils # (A) 8.3 k/uL (1.3-7.7); Neutrophils % (A) 75 %; Platelet Count 208 k/uL (150-450); RBC 4.54 m/uL (4.30-5.90); RDW 14.2 % (11.5-15.5); WBC 11.1 k/uL (3.8-10.6)
--- NOTE | 2023-03-26 16:43 | XR ---
EXAMINATION TYPE: XR chest 2V DATE OF EXAM: 03/26/2023 3:31 PM CLINICAL INDICATION:Male, 78 years old with history of Chest Pain; [facility] COMPARISON: 03/15/2023 TECHNIQUE: XR chest 2V Frontal and lateral views of the chest. FINDINGS: Lines/Tubes: EKG leads overlie the chest. No indwelling lines are seen. Lungs/Pleura: There is no evidence of pleural effusion, focal consolidation, or pneumothorax. Mild s carring/senescent changes again noted. Pulmonary vascularity: Unremarkable. Heart/mediastinum: Stable cardiomediastinal silhouette. Heart size upper normal. Musculoskeletal: No acute osseous pathology. Mild degenerative changes. Sternotomy wires, appear inta ct and unchanged. Other findings: None IMPRESSION: No acute findings, or significant interval change.
--- NOTE | 2023-03-26 16:46 | ED ---
Chest Pain HPI - General Chief Complaint: Chest Pain Stated Complaint: chest pain Time Seen by Provider: 03/26/23 14:54 Source: patient Mode of arrival: ambulatory Limitations: no limitations - History of Present Illness Initial Comments: 78-year-old male presents to the emergency room reporting chest pain. States he has had a dull ache in his chest for the past 3 days. He denies any radiation of the pain. States it's been constant without any provocative factors. He denies feeling short of breath. No fevers, chills or cough. He denies taking any medications to improve his symptoms. He was seen in the emergency department earlier this month and diagnosed with a flutter. States he has been taking all of his medications as directed without any improvement in his symptoms. He has a history of coronary artery disease with bypass. He denies any calf pain or swelling. No history of DVT or PE. 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 - Related Data Home Medications Medication Instructions Recorded Confirmed Apixaban [Eliquis] 5 mg PO BID 03/15/23 03/26/23 Furosemide [Lasix] 60 mg PO DAILY 03/15/23 03/26/23 Rivastigmine Tartrate [Exelon] 4.5 mg PO BID 03/15/23 03/26/23 Spironolactone [Aldactone] 25 mg PO DAILY 03/15/23 03/26/23 allopurinoL [Zyloprim] 100 mg PO BID 03/15/23 03/26/23 oxyBUTYnin chloride [Ditropan] 5 mg PO BID 03/15/23 03/26/23 rOPINIRole HCL [Requip] 1 - 2 mg PO HS 03/15/23 03/26/23 traZODone HCL 100 mg PO HS 03/15/23 03/26/23 Isosorbide Mononitrate ER [Imdur] 30 mg PO DAILY 03/26/23 03/26/23 Previous Rx's Medication Instructions Recorded Metoprolol Tartrate [Lopressor] 50 mg PO TID #90 tab 03/16/23 Allergies Allergy/AdvReac Type Severity Reaction Status Date / Time No Known Allergies Allergy Verified 03/26/23 14:54 Review of Systems ROS Statement: Those systems with pertinent positive or pertinent negative responses have been documented in the HPI. ROS Other: All systems not noted in ROS Statement are negative. Past Medical History Past Medical History: Sleep Apnea/CPAP/BIPAP Additional Past Medical History / Comment(s): 09/12/14 Pt presented to [facility] ER with chest heavinessand feeling woozy- nausea, while exercising at the [place] today. Other HX: KAMRAN-pt has CPAP and a mouth ashley for this-he does not use either very much because they don't seem to help, sinusitis, sinus headaches, nasal fracture as a young man, sleep disturbance. History of Any Multi-Drug Resistant Organisms: None Reported Past Surgical History: Adenoidectomy, Tonsillectomy Additional Past Surgical History / Comment(s): PMH: INSOMNIA Past Anesthesia/Blood Transfusion Reactions: No Reported Reaction Past Psychological History: No Psychological Hx Reported Smoking Status: Never smoker Past Alcohol Use History: Occasional Past Drug Use History: None Reported - Past Family History Father Family Medical History: Coronary Artery Disease (CAD), Myocardial Infarction ([place]) Additional Family Medical History / Comment(s): Father of a [place] at 47 yrs of age. Mother Family Medical History: Cancer Additional Family Medical History / Comment(s): Mother of lung cancer at age 71yrs. General Exam Limitations: no limitations General appearance: alert, in no apparent distress Head exam: Present: atraumatic, normocephalic, normal inspection Eye exam: Present: normal appearance, PERRL, EOMI. Absent: scleral icterus, conjunctival injection, periorbital swelling ENT exam: Present: normal exam, mucous membranes moist Neck exam: Present: normal inspection. Absent: tenderness, meningismus, lymphadenopathy Respiratory exam: Present: normal lung sounds bilaterally. Absent: respiratory distress, wheezes, rales, rhonchi, stridor Cardiovascular Exam: Present: tachycardia, irregular rhythm, normal heart sounds. Absent: systolic murmur, diastolic murmur, rubs, gallop, clicks GI/Abdominal exam: Present: soft, normal bowel sounds. Absent: distended, tenderness, guarding, rebound, rigid Extremities exam: Present: normal inspection, full ROM, normal capillary refill. Absent: tenderness, pedal edema, joint swelling, calf tenderness Back exam: Present: normal inspection Neurological exam: Present: alert, oriented X3, CN II-XII intact Psychiatric exam: Present: normal affect, normal mood Skin exam: Present: warm, dry, intact, normal color. Absent: rash Course Vital Signs 03/26/23 03/26/23 03/26/23 14:52 15:53 16:46 Temperature 98.6 F Pulse Rate 132 H 129 H 115 H Respiratory 22 20 18 Rate Blood Pressure 116/74 98/75 92/71 Blood Pressure [Left Arm Sitting] O2 Sat by Pulse 97 98 Oximetry 03/26/23 03/26/23 03/26/23 18:57 20:09 20:26 Temperature Pulse Rate 129 H 133 H Respiratory 18 19 17 Rate Blood Pressure 101/73 102/76 Blood Pressure 100/85 [Left Arm Sitting] O2 Sat by Pulse 97 98 Oximetry 03/26/23 03/26/23 21:58 22:16 Temperature Pulse Rate 106 H Respiratory 17 17 Rate Blood Pressure 100/74 Blood Pressure 97/65 [Left Arm Sitting] O2 Sat by Pulse 97 96 Oximetry Chest Pain MDM - MDM Was pt. sent in by a medical professional or institution (, PA, [facility], urgent care, hospital, or residential...) When possible be specific @ -No Did you speak to anyone other than the patient for history (EMS, parent, family, police, friend...)? What history was obtained from this source @ -I spoke with the patient's Did you review nursing and triage notes (agree or disagree)? Why? @ -I reviewed and agree with nursing and triage notes Were old charts reviewed (outside hosp., previous admission, EMS record, old EKG, old radiological studies, urgent care reports/EKG's, residential records)? Report findings @ -I reviewed the patient's hospitalization records from earlier this month where he was diagnosed with new-onset A. fib flutter Differential Diagnosis (chest pain, altered mental status, abdominal pain women, abdominal pain men, vaginal bleeding, weakness, fever, dyspnea, syncope, headache, dizziness, GI bleed, back pain, seizure, CVA, palpatations, mental health, musculoskeletal)? @ -Differential Chest Pain: Stable Angina, Unstable Angina, STEMI, NSTEMI Aortic Dissection, Pneumothorax, Musculoskeletal, Esophageal Spasm GERD, Cholecystitis, Pancreatitis, Zoster, this is not meant to be an all-inclusive list. EKG interpreted by me (3pts min.). @ -Yes and demonstrates an irregular tachycardic rate of 127. [place] interval 218. QRS 88. QTC of 449. There is some suspicion for underlying a flutter. X-rays interpreted by me (1pt min.). @ -Yes and demonstrates no acute intrathoracic process CT interpreted by me (1pt min.). @ -None done U/S interpreted by me (1pt. min.). @ -None done What testing was considered but not performed or refused? (CT, X-rays, U/S, labs)? Why? @ -None What meds were considered but not given or refused? Why? @ -None Did you discuss the management of the patient with other professionals (professionals i.e. DrLenard, PA, BEATER HEAD, lab, RT, psych nurse, director social service, home health nurse licensed practical, teacher, medical officer psychiatry, complex case manager)? Give summary @ -Spoke with Dr. Alarcon who will admit the patient Was smoking cessation discussed for >3mins.? @ -No Was critical care preformed (if so, how long)? @ -Yes, 35 minutes for management of a flutter with RVR Were there social determinants of health that impacted care today? How? (Martín elessness, low income, unemployed, alcoholism, drug addiction, transportation, low edu. Level, literacy, decrease access to med. care, assisted, rehab)? @ -No Was there de-escalation of care discussed even if they declined (Discuss DNR or withdrawal of care, Hospice)? DNR status @ -No What co-morbidities impacted this encounter? (DM, HTN, Smoking, COPD, CAD, Cancer, CVA, ARF, Chemo, Hep., AIDS, mental health diagnosis, sleep apnea, morbid obesity)? @ -Coronary artery disease status post bypass, a flutter Was patient admitted / discharged? Hospital course, mention meds given and route, prescriptions, significant lab abnormalities, going to OR and other pertinent info. @ -Admitted. Upon arrival patient is placed in room 16. Thorough history and physical exam was performed. Patient is placed on continuous pulse ox and cardiac monitoring. 12-lead EKG demonstrates possible a flutter. Patient was given a dose of metoprolol as this is the medication he is on at home. He does not have any improvement in his heart rate with this medication administration. He is placed on an amiodarone drip as he does have low blood pressure with a known reduced EF. He does tolerate this medication well. First troponin is negative. Recommended admission in order to repeat his troponins and have cardiology evaluate the patient. He was agreeable to this. Spoke with Dr. Alarcon who agreed to admit the patient Undiagnosed new problem with uncertain prognosis? @ -No Drug Therapy requiring intensive monitoring for toxicity (Heparin, Nitro, Insulin, Cardizem)? @ -No Were any procedures done? @ -No Diagnosis/symptom? @ -Acute chest pain, a flutter with RVR Acute, or Chronic, or Acute on Chronic? @ -Acute Uncomplicated (without systemic symptoms) or Complicated (systemic symptoms)? @ -Complicated Side effects of treatment? @ -No Exacerbation, Progression, or Severe Exacerbation? @ -No Poses a threat to life or bodily function? How? (Chest pain, [place], [place], pneumonia, PE, COPD, DKA, ARF, appy, cholecystitis, CVA, Diverticulitis, Homicidal, Suicidal, threat to staff... and all critical care pts) @ -Yes patient has markedly elevated heart rate Disposition Clinical Impression: Triple vessel coronary artery disease, Atrial flutter, Chest pain Disposition: ADMITTED IP TO THIS HOSP Condition: Stable Is patient prescribed a controlled substance at d/c from ED?: No Time of Disposition: 18:29 Decision to Admit Reason: Admit from EC Decision Date: 03/26/23 Decision Time: 18:29
[2023-03-26 17:12] LABS: INR 1.5 (<1.2); Partial Thromboplastin Time 29.2 sec (22.0-30.0); Prothrombin Time 15.6 sec (10.0-12.5)
[2023-03-26 17:30] LABS: ALT 13 U/L (4-49); AST 21 U/L (17-59); African American GFR (CKD) 56 (>60 ml/min/1.73 sqM); Albumin 3.7 g/dL (3.5-5.0); Alkaline Phosphatase 105 U/L (38-126); Anion Gap 11 mmol/L; Blood Urea Nitrogen 32 mg/dL (9-20); Carbon Dioxide 27 mmol/L (22-30); Chloride 100 mmol/L (98-107); Glucose 121 mg/dL (74-99); Lipase 107 U/L (23-300); Magnesium 2.4 mg/dL (1.6-2.3); Non-African American GFR(CKD) 49 (>60 ml/min/1.73 sqM); Potassium 4.2 mmol/L (3.5-5.1); Sodium 138 mmol/L (137-145); Total Bilirubin 1.1 mg/dL (0.2-1.3); Total Protein 6.9 g/dL (6.3-8.2)
[2023-03-26 17:39] LABS: NT-Pro-B-Type Natriuretic Pept 680 pg/mL
[2023-03-26] MEDS ORDERED: SODIUM CHLORIDE 0.9% 500 ML 500 ML IV ONE (18:14)
[2023-03-26] MEDS ORDERED: METOPROLOL TARTRATE 5 MG/5 ML VIAL IVP STA (18:24)
[2023-03-26] MEDS ORDERED: NALOXONE 0.4 MG/ML 1 ML VIAL IV PRN (18:30)
[2023-03-26] MEDS ORDERED: DEXTROSE 5% IN WATER 100 ML with AMIODARONE 150 MG IV ONE (19:27)
[2023-03-26] MEDS ORDERED: AMIODARONE 360 MG in DEXTROSE 5% IN WATER 200 ML IV ONE ×2 (19:27)
[2023-03-26] MEDS: APIXABAN 5 MG TAB PO SCH (23:16)
[2023-03-26] MEDS: allopurinoL 100 MG TAB PO SCH (23:16)
[2023-03-26] MEDS: traZODone HCL 100 MG TAB PO SCH (23:17)
[2023-03-26] MEDS: DONEPEZIL 10 MG TAB PO SCH (23:21)
[2023-03-27] MEDS ORDERED: AMIODARONE 450 MG in DEXTROSE 5% IN WATER 250 ML IV SCH ×2 (01:30)
[2023-03-27] MEDS: APIXABAN 5 MG TAB PO SCH ×2 (08:34→20:28)
[2023-03-27] MEDS: DONEPEZIL 10 MG TAB PO SCH (08:35)
[2023-03-27] MEDS: allopurinoL 100 MG TAB PO SCH ×2 (08:35→20:28)
[2023-03-27] MEDS: ISOSORBIDE MONONITRATE ER 30 MG TAB.ER.24H PO SCH (09:52)
[2023-03-27] MEDS: METOPROLOL TARTRATE 50 MG TAB PO SCH ×3 (09:52→20:28)
[2023-03-27 10:12] LABS: African American GFR (CKD) 87 (>60 ml/min/1.73 sqM); Anion Gap 11 mmol/L; Blood Urea Nitrogen 22 mg/dL (9-20); Calcium 8.5 mg/dL (8.4-10.2); Carbon Dioxide 20 mmol/L (22-30); Chloride 105 mmol/L (98-107); Glucose 99 mg/dL (74-99); Non-African American GFR(CKD) 75 (>60 ml/min/1.73 sqM); Sodium 136 mmol/L (137-145)
[2023-03-27 10:13] LABS: Potassium 4.4 mmol/L (3.5-5.1)
--- NOTE | 2023-03-27 10:16 | P.CRDCN ---
History of Present Illness History of present illness: HISTORY OF PRESENT ILLNESS: This is a 78-year-old male with a past medical history significant for coronary artery disease with previous CABG, cardiomyopathy, hypertension, hyperlipidemia, and atrial fibrillation/flutter. Patient follows in the office with Dr. Schumacher. We have been asked to see the patient in consultation for chest pain and atrial flutter. Patient examined at the bedside in the emergency room. Patient's spouse is present. It is noted that the patient was hospitalized earlier this month secondary to an episode of syncope. The patient was diagnosed with atrial flutter at that time. The patient states he has been doing well since he has been discharged. He reports over the past 2-3 days he has been having some mild chest pressure. He denied any radiation of the pain. He denied any shortness of breath. Denied any nausea or vomiting. He states the pain was mild so he did not take any medications for the pain. He states the pain would just resolve on its own. At the time of examination this morning, he denies any chest pain or pressure. He denies any shortness of breath. He denies any palpitations. He denies any dizziness or lightheadedness. EKG on admission revealed atrial flutter with RVR. The patient was started on IV amiodarone in the emergency room. * EKG reveals atrial flutter with RVR * Chest xray negative for acute process * Laboratory data: W BC 11.1. Hemoglobin 15.2. Platelet count 208. Sodium 138. Potassium 4.2. BUN 32. Creatinine 1.37. Troponin negative 2. BNP 680. * Current home cardiac medications include Eliquis 5 mg twice a day, Lasix 60 mg daily, Imdur 30 mg daily, metoprolol tartrate 50 mg 3 times a day, Aldactone 25 mg daily * Most recent echocardiogram obtained on 03/15/2023 revealed ejection fraction 40-45%, mild AI, mild TR REVIEW OF SYSTEMS: At the time of my exam: CONSTITUTIONAL: Denies fever or chills. HEENT: Denies blurred vision, vision changes, or eye pain. Denies hemoptysis CARDIOVASCULAR: Denies chest pain. Denies orthopnea. Denies PND. Denies palpitations RESPIRATORY: Denies shortness of breath. GASTROINTESTINAL: Denies abdominal pain. Denies nausea or vomiting. HEMATOLOGIC: Denies bleeding disorders. GENITOURINARY: Denies any blood in urine. SKIN: Denies pruitis. Denies rash. PHYSICAL EXAM: VITAL SIGNS: Reviewed. GENERAL: Well-developed in no acute distress. HEENT: Head is normocephalic. Pupils are equal, round. Sclerae anicteric. Mucous membranes of the mouth are moist. Neck supple. No JVD or thyromegaly LUNGS: Respirations even and unlabored. Lungs essentially clear to auscultation bilaterally. HEART: Tachycardic. Regular rate and rhythm. S1 and S2 heard. ABDOMEN: Soft. Nondistended. Nontender. EXTREMITIES: Normal range of motion. No clubbing or cyanosis. Peripheral pulses intact. No lower extremity edema NEUROLOGIC: Awake and alert. Oriented x 3. ASSESSMENT: Chest pain, atypical, troponin negative 3 Persistent typical atrial flutter with RVR Coronary artery disease with previous CABG 3 vessels, 2014 Ischemic cardiomyopathy, ejection fraction 40% Hypertension Hyperlipidemia History of syncope PLAN: No need to repeat echocardiogram as this was performed on 03/15/2023 Discontinue IV amiodarone Resume home cardiac medications including metoprolol tartrate 50 mg 3 times a day Continue telemetry monitoring If patients heart rates are well controlled this afternoon and he is not having any further episodes of chest pain, he may be discharged home from a cardiac standpoint Further recommendations pending patient's course Nurse practitioner note has been reviewed by physician. Signing provider agrees with the documented findings, assessment, and plan of care. Past Medical History Past Medical History: Sleep Apnea/CPAP/BIPAP Additional Past Medical History / Comment(s): 09/12/14 Pt presented to [facility] ER with chest heavinessand feeling woozy- nausea, while exercising at the [employer] today. Other HX: KAMRAN-pt has CPAP and a mouth ashley for this-he does not use either very much because they don't seem to help, sinusitis, sinus headaches, n bruce fracture as a young man, sleep disturbance. History of Any Multi-Drug Resistant Organisms: None Reported Past Surgical History: Adenoidectomy, Tonsillectomy Additional Past Surgical History / Comment(s): PMH: INSOMNIA Past Anesthesia/Blood Transfusion Reactions: No Reported Reaction Past Psychological History: No Psychological Hx Reported Smoking Status: Never smoker Past Alcohol Use History: Occasional Past Drug Use History: None Reported - Past Family History Father Family Medical History: Coronary Artery Disease (CAD), Myocardial Infarction ([place]) Additional Family Medical History / Comment(s): Father of a [place] at 47 yrs of age. Mother Family Medical History: Cancer Additional Family Medical History / Comment(s): Mother of lung cancer at a ge 71yrs. Medications and Allergies Home Medications Medication Instructions Recorded Confirmed Type Apixaban [Eliquis] 5 mg PO BID 03/15/23 03/26/23 History Furosemide [Lasix] 60 mg PO DAILY 03/15/23 03/26/23 History Rivastigmine Tartrate [Exelon] 4.5 mg PO BID 03/15/23 03/26/23 History Spironolactone [Aldactone] 25 mg PO DAILY 03/15/23 03/26/23 History allopurinoL [Zyloprim] 100 mg PO BID 03/15/23 03/26/23 History oxyBUTYnin chloride [Ditropan] 5 mg PO BID 03/15/23 03/26/23 History rOPINIRole HCL [Requip] 1 - 2 mg PO HS 03/15/23 03/26/23 History traZODone HCL 100 mg PO HS 03/15/23 03/26/23 History Metoprolol Tartrate [Lopressor] 50 mg PO TID #90 tab 03/16/23 03/26/23 Rx Isosorbide Mononitrate ER [Imdur] 30 mg PO DAILY 03/26/23 03/26/23 History Allergies Allergy/AdvReac Type Severity Reaction Status Date / Time No Known Allergies Allergy Verified 03/26/23 14:54 Physical Exam Vitals: Vital Signs Temp Pulse Pulse Resp BP BP BP 03/27/23 09:55 108 H 17 97/71 03/27/23 07:53 97.4 F L 112 H 16 114/91 03/27/23 07:01 112 H 03/27/23 05:29 106 H 19 03/27/23 04:12 104 H 17 96/75 03/27/23 03:09 106 H 17 95/69 03/27/23 02:20 105 H 17 98/72 03/27/23 00:49 104/76 03/27/23 00:29 120 H 19 102/74 03/26/23 23:23 105 H 19 120/79 03/26/23 22:16 106 H 17 100/74 03/26/23 21:58 17 97/65 03/26/23 20:26 17 100/85 03/26/23 20:09 133 H 19 102/76 03/26/23 18:57 129 H 18 101/73 03/26/23 16:46 115 H 18 92/71 03/26/23 15:53 129 H 20 98/75 03/26/23 14:52 98.6 F 132 H 22 116/74 Pulse Ox 03/27/23 09:55 96 03/27/23 07:53 96 03/27/23 07:01 03/27/23 05:29 03/27/23 04:12 03/27/23 03:09 03/27/23 02:20 03/27/23 00:49 03/27/23 00:29 03/26/23 23:23 95 03/26/23 22:16 96 03/26/23 21:58 97 03/26/23 20:26 98 03/26/23 20:09 03/26/23 18:57 97 03/26/23 16:46 98 03/26/23 15:53 03/26/23 14:52 97 Results 03/26/23 15:30 03/26/23 17:05 Cardiac Enzymes 03/26/23 03/26/23 03/26/23 Range/Units 17:05 17:05 20:42 AST 21 (17-59) U/L Troponin I <0.012 <0.012 (0.000-0.034) ng/mL 03/26/23 Range/Units 23:42 AST (17-59) U/L Troponin I <0.012 (0.000-0.034) ng/mL Coagulation 03/26/23 Range/Units 15:30 PT 15.6 H (10.0-12.5) sec APTT 29.2 (22.0-30.0) sec CBC 03/26/23 Range/Units 15:30 WBC 11.1 H (3.8-10.6) k/uL RBC 4.54 (4.30-5.90) m/uL Hgb 15.2 (13.0-17.5) gm/dL Hct 46.2 (39.0-53.0) % Plt Count 208 (150-450) k/uL Comprehensive Metabolic Panel 03/26/23 Range/Units 17:05 Sodium 138 (137-145) mmol/L Potassium 4.2 (3.5-5.1) mmol/L Chloride 100 (98-107) mmol/L Carbon Dioxide 27 (22-30) mmol/L BUN 32 H (9-20) mg/dL Creatinine 1.37 H (0.66-1.25) mg/dL Glucose 121 H (74-99) mg/dL Calcium 9.0 (8.4-10.2) mg/dL AST 21 (17-59) U/L ALT 13 (4-49) U/L Alkaline Phosphatase 105 (38-126) U/L Total Protein 6.9 (6.3-8.2) g/dL Albumin 3.7 (3.5-5.0) g/dL Current Medications Generic Name Dose Route Start Last Admin Trade Name Freq PRN Reason Stop Dose Admin Allopurinol 100 mg 03/26/23 23:15 03/27/23 08:35 Allopurinol 100 Mg Tab PO 100 mg BID CLINT Administration Apixaban 5 mg 03/26/23 23:15 03/27/23 08:34 Apixaban 5 Mg Tab PO 5 mg BID CLINT Administration Protocol Donepezil HCl 10 mg 03/26/23 23:15 03/27/23 08:35 Donepezil 10 Mg Tab PO 10 mg DAILY CLINT Administration Isosorbide Mononitrate 30 mg 03/27/23 09:00 03/27/23 09:52 Isosorbide Mononitrate Er 30 Mg Tab.Er.24h PO 30 mg DAILY CLINT Administration Metoprolol Tartrate 50 mg 03/27/23 09:00 03/27/23 09:52 Metoprolol Tartrate 50 Mg Tab PO 50 mg TID CLINT Administration Naloxone HCl 0.2 mg 03/26/23 18:30 Naloxone 0.4 Mg/Ml 1 Ml Vial IV Q2M PRN Opioid Reversal Ropinirole HCl 1 mg 03/26/23 23:15 03/26/23 23:16 Ropinirole Hcl 1 Mg Tab PO 1 mg HS CLINT Administration Trazodone HCl 100 mg 03/26/23 23:15 03/26/23 23:17 Trazodone Hcl 100 Mg Tab PO 100 mg HS CLINT Administration 03/26/23 15:30 03/26/23 17:05
[2023-03-27 10:23] LABS: Basophils # (A) 0.1 k/uL (0-0.2); Basophils % (A) 0 %; Eosinophils # (A) 0.2 k/uL (0-0.7); Eosinophils % (A) 2 %; HCT 44.7 % (39.0-53.0); HGB 14.6 gm/dL (13.0-17.5); Lymphocytes # (A) 1.7 k/uL (1.0-4.8); Lymphocytes % (A) 15 %; MCHC 32.6 g/dL (31.0-37.0); Macrocytosis Slight; Mean Platelet Volume 8.3; Monocytes # (A) 0.7 k/uL (0-1.0); Monocytes % (A) 6 %; Neutrophils # (A) 8.8 k/uL (1.3-7.7); Neutrophils % (A) 75 %; Platelet Count 156 k/uL (150-450); RDW 14.4 % (11.5-15.5); WBC 11.8 k/uL (3.8-10.6)
--- NOTE | 2023-03-27 11:15 | P.HPIM ---
History of Present Illness 78-year-old male with known history of coronary artery disease, CABG in the past with cardiomyopathy EF of around 40-45% on Lasix, recently diagnosed A. fib after he presented with syncope came in with complaints of chest pressure like sensation which is an atypical chest pain. Patient is also feeling tired and weak. Patient is found to be in atrial fibrillation and elevated creatinine of 1.37 along with hypotension, baseline creatinine of 0.96. Patient denied any lightheadedness or dizziness or diaphoresis patient was started on IV might grow any, Lasix is being held dose of metoprolol is being increased with discontinuat ion of amiodarone. REVIEW OF SYSTEMS: CONSTITUTIONAL: No fever, no malaise, no fatigue. HEENT: No recent visual problems or hearing problems. Denied any sore throat. CARDIOVASCULAR: No orthopnea, PND, no palpitations, no syncope. PULMONARY: No shortness of breath, no cough, no hemoptysis. GASTROINTESTINAL: No diarrhea, no nausea, no vomiting, no abdominal pain. NEUROLOGICAL: No headaches, no weakness, no numbness. HEMATOLOGICAL: Denies any bleeding or petechiae. GENITOURINARY: Denies any burning micturition, frequency, or urgency. MUSCULOSKELETAL/RHEUMATOLOGICAL: Denies any joint pain, swelling, or any muscle pain. ENDOCRINE: Denies any polyuria or polydipsia. The rest of the 14-point review of systems is negative. PHYSICAL EXAMINATION: GENERAL: The patient is alert and oriented x3, not in any acute distress. Well developed, well nourished. HEENT: Pupils are round and equally reacting to light. EOMI. No scleral icterus. No conjunctival pallor. Normocephalic, atraumatic. No pharyngeal erythema. No thyromegaly. CARDIOVASCULAR: S1 and S2 present. No murmurs, rubs, or gallops. A. fib with rapid ventricular rate, irregularly particular problem PULMONARY: Chest is clear to auscultation, no wheezing or crackles. ABDOMEN: Soft, nontender, nondistended, normoactive bowel sounds. No palpable organomegaly. MUSCULOSKELETAL: No joint swelling or deformity. EXTREMITIES: No cyanosis, clubbing, or pedal edema. NEUROLOGICAL: Gross neurological examination did not reveal any focal deficits. SKIN: No rashes. Assessment and plan -Dehydration, intravascular volume depletion, hypotension: Secondary to diuretics which are being held patient received IV fluids in ER with improvement in serum creatinine. -Atrial fibrillation: Secondary to dehydration as mentioned above increase the dose of beta maryanne monitor overnight -Congestive heart failure chronic systolic dysfunction with EF of around 40-45%, presently not in acute heart failure exacerbation, repeat echocardiogram is being obtained at this time -Coronary artery disease and CABG in the past -Persistent atrial fibrillation -Hypertension Hyperlipidemia -generalized weakness, age-related and secondary to chronic medical problems physical therapy outpatient therapy evaluation DVT prophylaxis: Patient was resumed on anticoagulation for atrial fibrillation Past Medical History Past Medical History: Sleep Apnea/CPAP/BIPAP Additional Past Medical History / Comment(s): 09/12/14 Pt presented to [facility] ER with chest heavinessand feeling woozy- nausea, while exercising at the [facility] today. Other HX: KAMRAN-pt has CPAP and a mouth ashley for this-he does not use either very much because they don't seem to help, sinusitis, sinus headaches, na janette fracture as a young man, sleep disturbance. History of Any Multi-Drug Resistant Organisms: None Reported Past Surgical History: Adenoidectomy, Tonsillectomy Additional Past Surgical History / Comment(s): PMH: INSOMNIA Past Anesthesia/Blood Transfusion Reactions: No Reported Reaction Past Psychological History: No Psychological Hx Reported Smoking Status: Never smoker Past Alcohol Use History: Occasional Past Drug Use History: None Reported - Past Family History Father Family Medical History: Coronary Artery Disease (CAD), Myocardial Infarction (AZ) Additional Family Medical History / Comment(s): Father of a [place] at 47 yrs of age. Mother Family Medical History: Cancer Additional Family Medical History / Comment(s): Mother of lung cancer at ag e 71yrs. Medications and Allergies Home Medications Medication Instructions Recorded Confirmed Type Apixaban [Eliquis] 5 mg PO BID 03/15/23 03/26/23 History Furosemide [Lasix] 60 mg PO DAILY 03/15/23 03/26/23 History Rivastigmine Tartrate [Exelon] 4.5 mg PO BID 03/15/23 03/26/23 History Spironolactone [Aldactone] 25 mg PO DAILY 03/15/23 03/26/23 History allopurinoL [Zyloprim] 100 mg PO BID 03/15/23 03/26/23 History oxyBUTYnin chloride [Ditropan] 5 mg PO BID 03/15/23 03/26/23 History rOPINIRole HCL [Requip] 1 - 2 mg PO HS 03/15/23 03/26/23 History traZODone HCL 100 mg PO HS 03/15/23 03/26/23 History Metoprolol Tartrate [Lopressor] 50 mg PO TID #90 tab 03/16/23 03/26/23 Rx Isosorbide Mononitrate ER [Imdur] 30 mg PO DAILY 03/26/23 03/26/23 History Allergies Allergy/AdvReac Type Severity Reaction Status Date / Time No Known Allergies Allergy Verified 03/26/23 14:54 Physical Exam Vitals: Vital Signs Temp Pulse Pulse Resp BP BP BP 03/27/23 09:55 108 H 17 97/71 03/27/23 07:53 97.4 F L 112 H 16 114/91 03/27/23 07:01 112 H 03/27/23 05:29 106 H 19 03/27/23 04:12 104 H 17 96/75 03/27/23 03:09 106 H 17 95/69 03/27/23 02:20 105 H 17 98/72 03/27/23 00:49 104/76 03/27/23 00:29 120 H 19 102/74 03/26/23 23:23 105 H 19 120/79 03/26/23 22:16 106 H 17 100/74 03/26/23 21:58 17 97/65 03/26/23 20:26 17 100/85 03/26/23 20:09 133 H 19 102/76 03/26/23 18:57 129 H 18 101/73 03/26/23 16:46 115 H 18 92/71 03/26/23 15:53 129 H 20 98/75 03/26/23 14:52 98.6 F 132 H 22 116/74 Pulse Ox 03/27/23 09:55 96 03/27/23 07:53 96 03/27/23 07:01 03/27/23 05:29 03/27/23 04:12 03/27/23 03:09 03/27/23 02:20 03/27/23 00:49 03/27/23 00:29 03/26/23 23:23 95 03/26/23 22:16 96 03/26/23 21:58 97 03/26/23 20:26 98 03/26/23 20:09 03/26/23 18:57 97 03/26/23 16:46 98 03/26/23 15:53 03/26/23 14:52 97 Results CBC & Chem 7: 03/27/23 08:15 03/27/23 08:15 Labs: Abnormal Lab Results - Last 24 Hours (Table) 03/26/23 03/26/23 03/26/23 Range/Units 15:30 15:30 17:05 WBC 11.1 H (3.8-10.6) k/uL MCV 101.8 H (80.0-100.0) fL Neutrophils # 8.3 H (1.3-7.7) k/uL PT 15.6 H (10.0-12.5) sec INR 1.5 H (<1.2) Sodium (137-145) mmol/L Carbon Dioxide (22-30) mmol/L BUN 32 H (9-20) mg/dL Creatinine 1.37 H (0.66-1.25) mg/dL Glucose 121 H (74-99) mg/dL Magnesium 2.4 H (1.6-2.3) mg/dL 03/27/23 03/27/23 Range/Units 08:15 08:15 WBC 11.8 H (3.8-10.6) k/uL MCV 104.0 H (80.0-100.0) fL Neutrophils # 8.8 H (1.3-7.7) k/uL PT (10.0-12.5) sec INR (<1.2) Sodium 136 L (137-145) mmol/L Carbon Dioxide 20 L (22-30) mmol/L BUN 22 H (9-20) mg/dL Creatinine (0.66-1.25) mg/dL Glucose (74-99) mg/dL Magnesium (1.6-2.3) mg/dL
[2023-03-27] MEDS: traZODone HCL 100 MG TAB PO SCH (20:28)
[2023-03-28] VITALS: RESP 18
[2023-03-28 07:09] LABS: HCT 43.8 % (39.0-53.0); HGB 14.5 gm/dL (13.0-17.5); MCH 33.7 pg (25.0-35.0); MCV 102.1 fL (80.0-100.0); Macrocytosis Slight; Mean Platelet Volume 7.6; Platelet Count 202 k/uL (150-450); RBC 4.29 m/uL (4.30-5.90); WBC 12.6 k/uL (3.8-10.6)
[2023-03-28 07:17] LABS: African American GFR (CKD) 81 (>60 ml/min/1.73 sqM); Anion Gap 7 mmol/L; Blood Urea Nitrogen 20 mg/dL (9-20); Calcium 8.8 mg/dL (8.4-10.2); Carbon Dioxide 23 mmol/L (22-30); Chloride 107 mmol/L (98-107); Glucose 96 mg/dL (74-99); Non-African American GFR(CKD) 70 (>60 ml/min/1.73 sqM); Potassium 4.1 mmol/L (3.5-5.1); Sodium 137 mmol/L (137-145)
[2023-03-28] MEDS: allopurinoL 100 MG TAB PO SCH (08:02)
[2023-03-28] MEDS: METOPROLOL TARTRATE 50 MG TAB PO SCH (08:02)
[2023-03-28] MEDS: APIXABAN 5 MG TAB PO SCH (08:02)
[2023-03-28] MEDS: DONEPEZIL 10 MG TAB PO SCH (08:02)
[2023-03-28] MEDS: ISOSORBIDE MONONITRATE ER 30 MG TAB.ER.24H PO SCH (10:47)
[2023-03-28 12:16] VITALS: PULSE 108; TEMP 97.9
--- NOTE | 2023-03-28 13:04 | P.DS ---
Providers Date of admission: 03/26/23 18:35 Attending physician: Carmelita Alarcon MD Consults: 03/26/23 18:30 Consult Physician Urgent Consulting Provider: [facility] Consult Reason/Comments: acute chest pain, aflutter with rvr, hx ascad Do you want consulting provider notified?: Yes Primary care physician: [facility] Course: 78-year-old male with prior coronary artery disease CABG, congestive heart failure EF of her on 40-45% on Lasix 40 mg and Aldactone came in for dehydration resulting in atrial fibrillation, which improved patient has chronic A. fib presently rate controlled with discontinuation of diuretics and hydration. Patient blood pressure remains low. Heart rate improved, patient is being discharged on 50 mg 3 times a day of metoprolol along with anticoagulation. Because of continued low blood pressure, despite improvement in serum creatinine from 1.4-0.9, Lasix is being held upon discharge but Aldactone is being continued. Patient's volume status need to be reassessed in clinic restarted back on diuretics if needed as an outpatient with close follow-up with primary care physician and grape pruner. Patient had mild leukocytosis without any evidence of infection patient was not started on any antibiotics patient didn't have any improvement in leukocytosis repeat labs were ordered and the results to be faxed to Dr. Yoon. PHYSICAL EXAMINATION: GENERAL: The patient is alert and oriented x3, not in any acute distress. Well developed, well nourished. HEENT: Pupils are round and equally reacting to light. EOMI. No scleral icterus. No conjunctival pallor. Normocephalic, atraumatic. No pharyngeal erythema. No thyromegaly. CARDIOVASCULAR: S1 and S2 present. No murmurs, rubs, or gallops. PULMONARY: Chest is clear to auscultation, no wheezing or crackles. ABDOMEN: Soft, nontender, nondistended, normoactive bowel sounds. No palpable organomegaly. MUSCULOSKELETAL: No joint swelling or deformity. EXTREMITIES: No cyanosis, clubbing, or pedal edema. NEUROLOGICAL: Gross neurological examination did not reveal any focal deficits. SKIN: No rashes. Assessment and plan -Dehydration, intravascular volume depletion, hypotension: Dehydration improved with IV fluids and holding off on diuretics and patient remains in the hypotensive side -Atrial fibrillation, : Secondary to dehydration as mentioned above increased the dose and dose of metoprolol with improvement in heart rate -Congestive heart failure chronic systolic dysfunction with EF of around 40-45%, presently not in acute heart failure exacerbation, repeat echocardiogram is aparna ng obtained at this time -Coronary artery disease and CABG in the past -Persistent atrial fibrillation -Hypertension Hyperlipidemia Patient will be discharged today Patient Condition at Discharge: Stable Plan - Discharge Summary Discharge Rx Participant: No New Discharge Prescriptions: New Spironolactone [Aldactone] 25 mg PO DAILY #30 tablet Continue rOPINIRole HCL [Requip] 1 - 2 mg PO HS oxyBUTYnin chloride [Ditropan] 5 mg PO BID Apixaban [Eliquis] 5 mg PO BID Metoprolol Tartrate [Lopressor] 50 mg PO TID #90 tab traZODone HCL 100 mg PO HS Rivastigmine Tartrate [Exelon] 4.5 mg PO BID allopurinoL [Zyloprim] 100 mg PO BID Isosorbide Mononitrate ER [Imdur] 30 mg PO DAILY Discontinued Furosemide [Lasix] 60 mg PO DAILY Spironolactone [Aldactone] 25 mg PO DAILY Discharge Medication List Apixaban [Eliquis] 5 mg PO BID 03/15/23 [History] Rivastigmine Tartrate [Exelon] 4.5 mg PO BID 03/15/23 [History] allopurinoL [Zyloprim] 100 mg PO BID 03/15/23 [History] oxyBUTYnin chloride [Ditropan] 5 mg PO BID 03/15/23 [History] rOPINIRole HCL [Requip] 1 - 2 mg PO HS 03/15/23 [History] traZODone HCL 100 mg PO HS 03/15/23 [History] Metoprolol Tartrate [Lopressor] 50 mg PO TID #90 tab 03/16/23 [Rx] Isosorbide Mononitrate ER [Imdur] 30 mg PO DAILY 03/26/23 [History] Spironolactone [Aldactone] 25 mg PO DAILY #30 tablet 03/28/23 [Rx] Follow up Appointment(s)/Referral(s): Delonte Vasquez MD [Primary Care Provider] - 3 Days Ambulatory/Diagnostic Orders: Basic Metabolic Panel [LAB.AMB] Time Frame: 3 Days, Location: None Selected Complete Blood Count w/diff [LAB.AMB] Time Frame: 3 Days, Location: None Selected Discharge Disposition: HOME SELF-CARE
[2023-03-28 14:14] VITALS: BP 111/76
--- NOTE | 2023-03-28 14:30 | P.PN ---
Subjective HISTORY OF PRESENT ILLNESS: This is a 78-year-old male with a past medical history significant for coronary artery disease with previous CABG, cardiomyopathy, hypertension, hyperlipidemia, and atrial fibrillation/flutter. Patient follows in the office with Dr. Schumacher. We have been asked to see the patient in consultation for chest pain and atrial flutter. Patient examined at the bedside in the emergency room. Patient's sp ouse is present. It is noted that the patient was hospitalized earlier this month secondary to an episode of syncope. The patient was diagnosed with atrial flutter at that time. The patient states he has been doing well since he has been discharged. He reports over the past 2-3 days he has been having some mild chest pressure. He denied any radiation of the pain. He denied any shortness of breath. Denied any nausea or vomiting. He states the pain was mild so he did not take any medications for the pain. He states the pain would just resolve on its own. At the time of examination this morning, he denies any chest pain or pressure. He denies any shortness of breath. He denies any p alpitations. He denies any dizziness or lightheadedness. EKG on admission revealed atrial flutter with RVR. The patient was started on IV amiodarone in the emergency room. * EKG reveals atrial flutter with RVR * Chest xray negative for acute process * Laboratory data: W BC 11.1. Hemoglobin 15.2. Platelet count 208. Sodium 138. Potassium 4.2. BUN 32. Creatinine 1.37. Troponin negative 2. BNP 680. * Current home cardiac medications include Eliquis 5 mg twice a day, Lasix 60 mg daily, Imdur 30 mg daily, metoprolol tartrate 50 mg 3 times a day, Aldactone 25 mg daily * Most recent echocardiogram obtained on 03/15/2023 revealed ejection fraction 40-45%, mild AI, mild TR 03/28/2023 Patient examined this morning at the bedside. Patient denies chest pain or pressure. He denies shortness of breath. Telemetry reveals atrial flutter with controlled ventricular rates. Vital signs are stable. PHYSICAL EXAM: VITAL SIGNS: Reviewed. GENERAL: Well-developed in no acute distress. HEENT: Head is normocephalic. Pupils are equal, round. Sclerae anicteric. Mucous membranes of the mouth are moist. Neck supple. No JVD or thyromegaly LUNGS: Respirations even and unlabored. Lungs essentially clear to auscultation bilaterally. HEART: Tachycardic. Regular rate and rhythm. S1 and S2 heard. ABDOMEN: Soft. Nondistended. Nontender. EXTREMITIES: Normal range of motion. No clubbing or cyanosis. Peripheral pulses intact. No lower extremity edema NEUROLOGIC: Awake and alert. Oriented x 3. ASSESSMENT: Chest pain, atypical, troponin negative 3 Persistent typical atrial flutter with RVR, currently rate controlled Coronary artery disease with previous CABG 3 vessels, 2014 Ischemic cardiomyopathy, ejection fraction 40% Hypertension Hyperlipidemia History of syncope PLAN: Continue current cardiac medications Patient is currently stable from a cardiac perspective Discharge per medicine Patient to follow-up in the office with Dr. Cope Nurse practitioner note has been reviewed by physician. Signing provider agrees with the documented findings, assessment, and plan of care. Objective - Vital Signs Vital signs: Vital Signs Temp 97.9 F 03/28/23 11:51 Pulse 108 H 03/28/23 11:51 Resp 18 03/28/23 11:51 BP 111/76 03/28/23 14:00 Pulse Ox 96 03/28/23 11:51 FiO2 Intake & Output 03/27/23 03/28/23 03/28/23 18:59 06:59 18:59 Intake Total 968 Output Total 0 Balance 968 Weight 86.183 kg Intake: IV 10 Invasive Line 1 10 Oral 958 Output: Urine 0 Other: # Voids 2 # Bowel Movements 0 - Labs CBC & Chem 7: 03/28/23 06:22 03/28/23 06:22 Labs: Abnormal Lab Results - Last 24 Hours (Table) 03/28/23 Range/Units 06:22 WBC 12.6 H (3.8-10.6) k/uL RBC 4.29 L (4.30-5.90) m/uL MCV 102.1 H (80.0-100.0) fL
== END 2023-03-28 14:06 | disposition home or self-care (01) ==
LOC: EC 14:44 → 6NMEDSUR 18:35 → 3SCARD 03-27 06:12
PROVIDERS: ADMIT Internal Medicine; ATTEND Internal Medicine
DX: I48.19 Other persistent atrial fibrillation (principal); E86.0 Dehydration; R53.1 Weakness; I11.0 Hypertensive heart disease with heart failure; I50.22 Chronic systolic (congestive) heart failure; I25.10 Atherosclerotic heart disease of native coronary artery without angina pectoris; I48.92 Unspecified atrial flutter; I25.5 Ischemic cardiomyopathy; G47.33 Obstructive sleep apnea (adult) (pediatric); E78.5 Hyperlipidemia, unspecified; Z95.1 Presence of aortocoronary bypass graft; Z79.01 Long term (current) use of anticoagulants; Z79.899 Other long term (current) drug therapy
CPT/HCPCS: 96361; 96365; 96366 ×2; 96375; 99285; 36415; 93005; 83880; 80053; 80048 ×2; 83690; 83735; 84484; 85025 ×2; 85027; 85610; 85730; 71046; G0378 ×4; J0282 ×3

== ENCOUNTER 2023-06-20 08:02 | Observation (INO) | payer MEDICARE ==
[~2023-06-20 08:02] MED LIST: ALPRAZolam 0.25 MG TAB PO PRN; ALPRAZolam 0.5 MG TAB PO PRN; ASPIRIN 325 MG TAB PO STA; HEPARIN SODIUM,PORCINE (1 ML) 2,500 UNIT in SODIUM CHLORIDE 0.9% 250 ML IRRIGATION PRN; HEPARIN SODIUM,PORCINE 10,000 UNIT in SODIUM CHLORIDE 0.9% 1,000 ML IRRIGATION PRN; NITROGLYCERIN SL TABS 0.4 MG TAB SUBLINGUAL PRN
[2023-06-20] MEDS ORDERED: SODIUM CHLORIDE 0.9% 1,000 ML IV ONE (08:22)
[2023-06-20 08:47] LABS: Basophils # (A) 0.1 k/uL (0-0.2); Basophils % (A) 1 %; Eosinophils # (A) 0.3 k/uL (0-0.7); Eosinophils % (A) 3 %; HCT 51.2 % (39.0-53.0); HGB 17.1 gm/dL (13.0-17.5); Lymphocytes # (A) 2.9 k/uL (1.0-4.8); Lymphocytes % (A) 30 %; MCHC 33.3 g/dL (31.0-37.0); Macrocytosis Slight; Mean Platelet Volume 7.9; Monocytes # (A) 0.7 k/uL (0-1.0); Monocytes % (A) 8 %; Neutrophils # (A) 5.5 k/uL (1.3-7.7); Neutrophils % (A) 57 %; Platelet Count 212 k/uL (150-450); RBC 5.02 m/uL (4.30-5.90); WBC 9.6 k/uL (3.8-10.6)
[2023-06-20 09:00] LABS: African American GFR (CKD) 59 (>60 ml/min/1.73 sqM); Anion Gap 12 mmol/L; Blood Urea Nitrogen 28 mg/dL (9-20); Calcium 9.1 mg/dL (8.4-10.2); Carbon Dioxide 28 mmol/L (22-30); Chloride 98 mmol/L (98-107); Glucose 84 mg/dL (74-99); Non-African American GFR(CKD) 51 (>60 ml/min/1.73 sqM); Potassium 4.2 mmol/L (3.5-5.1); Sodium 138 mmol/L (137-145)
[2023-06-20] MEDS: SODIUM CHLORIDE 0.9% 1,000 ML in EMPTY BAG 1 BAG IV SCH ×2 (09:01→17:46)
[2023-06-20] MEDS ORDERED: LIDOCAINE 1% INJ 10MG/ML (20 ML MDV) ONE (12:13)
[2023-06-20] MEDS ORDERED: MIDAZOLAM 2 MG/2 ML VIAL IVP ONE (12:44)
[2023-06-20] MEDS ORDERED: LIDOCAINE 1% INJ 10MG/ML (20 ML MDV) SQ ONE (12:45)
[2023-06-20] MEDS ORDERED: FLUMAZENIL 0.1 MG/ML 5 ML VIAL IVP ONE ×2 (12:57→13:03)
[2023-06-20] MEDS ORDERED: HEPARIN SODIUM 1,000 UN/ML (10ML VL) ONE (13:01)
[2023-06-20] MEDS ORDERED: HEPARIN SODIUM 1,000 UN/ML (10ML VL) IV ONE (13:03)
[2023-06-20] MEDS ORDERED: IOPAMIDOL-370 100ML BTL INJ ONE ×2 (13:10→13:25)
[2023-06-20] MEDS ORDERED: CLOPIDOGREL 75 MG TAB ONE (13:11)
[2023-06-20] MEDS ORDERED: CLOPIDOGREL 75 MG TAB PO ONE (13:14)
[2023-06-20] MEDS ORDERED: PHENYLEPHRINE-0.9% NACL SYG 1,000 MCG/10 ML SYRINGE IVP ONE (13:22)
[2023-06-20] MEDS ORDERED: niCARdipine 25 MG/10 ML VIAL ONE (13:23)
[2023-06-20] MEDS ORDERED: ZOLPIDEM 5 MG TAB PO PRN (13:41)
[2023-06-20] MEDS ORDERED: RX INFO: IV CONTRAST WAS GIVEN 1 EACH MISC MISCELLANE PRN (13:41)
[2023-06-20] MEDS ORDERED: MAG HYDROX/AL HYDROX/SIMETH 30 ML CUP PO PRN (13:41)
[2023-06-20] MEDS ORDERED: NITROGLYCERIN SL TABS 0.4 MG TAB SUBLINGUAL PRN (13:41)
[2023-06-20] MEDS ORDERED: ATROPINE SULFATE 0.1 MG/ML 10ML SYRINGE IV PRN (13:41)
[2023-06-20] MEDS ORDERED: SODIUM CHLORIDE 0.9% 1,000 ML in EMPTY BAG 1 BAG IV SCH (13:45)
--- NOTE | 2023-06-20 13:52 | P.PCN ---
Date of Procedure: 06/20/23 Operative Findings: CARDIAC CATHETERIZATION AND PERCUTANEOUS CORONARY INTERVENTION PERFORMING PHYSICIAN: Deni Schumacher MD, [facility] PROCEDURE PERFORMED: 1. Selective right and left coronary angiogram 2. BALLARD to LAD angiogram and SVG to diagonal angiogram and SVG to OM angiogram 3. Successful stenting of the PLV branch of the RCA using 2.75 x 15 mm Xience KEL with an excellent angiographic results 4. Ultrasound-guided access of the right common femoral artery and right common femoral artery angiogram INDICATION: This is a 78-year-old gentleman with CAD and status post CABG with BLALARD into LAD and SVG to diagonal and SVG to OM as well as hypertension and dyslipidemia was seen in the office recently where he was symptomatic and underwent myocardial perfusion imaging stress that showed an inferior ischemia COMPLICATION: None APPROACH: Right common femoral artery LEVEL OF SEDATION: Moderate with the sedation time off 41 minutes PROCEDURE DESCRIPTION: After obtaining an informed consent the patient was brought to the cardiac screedman/laborer. The right common femoral artery was cannulated using micropuncture technique under ultrasound guidance an echo puncture wire passed easily then I placed a 6-[place] 11 cm sheath. Selective left and right coronary angiogram performed using JL4 and JR4 catheters. All bypasses angiogram including BALLARD to LAD angiogram and SVG to diagonal angiogram and SVG to OM angiogram performed using the JR4 catheter. After that I did intervene on the right coronary artery. By the end I did selective right common femoral artery angiogram. The procedure was completed there was no complication SELECTIVE CORONARY ANGIOGRAM: The right coronary artery: Large caliber vessel and a dominant vessel. The ostial RCA has a lesion appeared to be in the range of 40%. The RCA after that has mild to moderate diffuse disease and distally bifurcates into patent PDA and severe disease involving a large PLV branch. Left main: Calcified with disease appears to be in the range of 40-50%. The left circumflex: Has occluded OM in the proximal portion. The left anterior descending artery: Has a critical lesion proximally and in the mid subtotally occluded was competitive flow from the BALLARD Coronary bypasses angiogram The BALLARD to LAD is patent The SVG to diagonal is patent The SVG to OM is patent PCI OF THE RCA: Anticoagulation was initiated using heparin with continuous ACT monitoring. Subsequently I did engage the RCA using an XB right guiding catheter. Subsequently I was able to wire the PLV branch using a run-through wire. Predilatation was performed using 2 mm balloon. After that I deployed 2.75 x 15 mm stent where the stent was positioned under fluoroscopy guidance and deployed under fluoroscopy guidance. Postradiation was performed using 3 mm noncompliant balloon. After that an angiogram was performed and showed good angiographic results and the procedure was completed there was no complication CONCLUSION: Severe two-vessel CAD involving the LAD and LCx Patent BALLARD to LAD. Patent SVG to diagonal. Patent SVG to OM Severe disease involving unprotected PLV branch of the RCA. I performed successful stenting of the PLV branch POSTPROCEDURE MANAGEMENT: 1. Consider triple therapy for 1 month followed by dual therapy for 6 month 2. Aggressive cholesterol control 3. Follow-up with the patient
[2023-06-20] MEDS: METOPROLOL TARTRATE 50 MG TAB PO SCH (21:11)
[2023-06-20] MEDS: oxyBUTYnin chloride 5 MG TAB PO SCH (21:20)
[2023-06-20] MEDS: DONEPEZIL 10 MG TAB PO SCH (21:20)
[2023-06-20] MEDS: AMIODARONE 200 MG TAB PO SCH (21:20)
[2023-06-21] MEDS: SODIUM CHLORIDE 0.9% 1,000 ML in EMPTY BAG 1 BAG IV SCH ×2 (04:19→16:40)
[2023-06-21 08:57] LABS: Basophils % (A) 0 %; Eosinophils # (A) 0.2 k/uL (0-0.7); Eosinophils % (A) 2 %; HCT 46.9 % (39.0-53.0); HGB 15.2 gm/dL (13.0-17.5); Lymphocytes # (A) 2.1 k/uL (1.0-4.8); Lymphocytes % (A) 17 %; MCH 33.4 pg (25.0-35.0); MCHC 32.5 g/dL (31.0-37.0); Macrocytosis Slight; Mean Platelet Volume 7.4; Monocytes # (A) 0.6 k/uL (0-1.0); Monocytes % (A) 5 %; Neutrophils # (A) 8.8 k/uL (1.3-7.7); Neutrophils % (A) 74 %; Platelet Count 190 k/uL (150-450); RBC 4.56 m/uL (4.30-5.90); RDW 13.7 % (11.5-15.5); WBC 11.9 k/uL (3.8-10.6)
[2023-06-21] MEDS ORDERED: SPIRONOLACTONE 25 MG TAB PO SCH (09:00)
[2023-06-21] MEDS ORDERED: FUROSEMIDE 40 MG TAB PO SCH (09:00)
[2023-06-21 09:43] LABS: ALT 16 U/L (4-49); AST 25 U/L (17-59); African American GFR (CKD) 60 (>60 ml/min/1.73 sqM); Albumin 3.1 g/dL (3.5-5.0); Alkaline Phosphatase 94 U/L (38-126); Anion Gap 8 mmol/L; Blood Urea Nitrogen 22 mg/dL (9-20); Calcium 8.5 mg/dL (8.4-10.2); Carbon Dioxide 27 mmol/L (22-30); Chloride 102 mmol/L (98-107); Glucose 121 mg/dL (74-99); Non-African American GFR(CKD) 52 (>60 ml/min/1.73 sqM); Sodium 137 mmol/L (137-145); Total Protein 6.3 g/dL (6.3-8.2)
[2023-06-21] MEDS: oxyBUTYnin chloride 5 MG TAB PO SCH ×2 (09:58→21:13)
[2023-06-21] MEDS: POTASSIUM CHLORIDE ER 10 MEQ TAB.ER.PRT PO SCH (09:58)
[2023-06-21] MEDS: ISOSORBIDE MONONITRATE ER 30 MG TAB.ER.24H PO SCH (09:58)
[2023-06-21] MEDS: AMIODARONE 200 MG TAB PO SCH ×2 (09:58→21:13)
[2023-06-21] MEDS: CLOPIDOGREL 75 MG TAB PO SCH (09:58)
[2023-06-21] MEDS: METOPROLOL TARTRATE 50 MG TAB PO SCH ×2 (09:58→21:13)
[2023-06-21] MEDS: allopurinoL 100 MG TAB PO SCH (09:58)
[2023-06-21 11:52] VITALS: BMI 26.2
--- NOTE | 2023-06-21 12:57 | P.PN ---
Progress Note - Text Progress Note Date: 06/21/23 The patient is a 78-year-old gentleman who underwent yesterday successful stenting of the PLV branch of the RCA with a good angiographic results. He was seen and evaluated today. Today's 06/21/2023. He is asymptomatic. His pressure has been marginal. His blood work appeared to be within normal limits. Without being seen by 20 to the patient for additional night and adjust his medication including decrease the dose of Aldactone to 12.5 mg by mouth daily along with decrease the dose of Lasix to 20 mg by mouth daily. The examination overall is unremarkable. The patient will be seen and evaluated tomorrow morning and if the pressure is better and more stable he will be discharged home in the morning the patient is in full understanding and agreement
[2023-06-21] MEDS: DONEPEZIL 10 MG TAB PO SCH (21:13)
[2023-06-22] MEDS: SODIUM CHLORIDE 0.9% 1,000 ML in EMPTY BAG 1 BAG IV SCH ×2 (05:05→10:26)
[2023-06-22 05:19] VITALS: RESP 16
[2023-06-22] MEDS: POTASSIUM CHLORIDE ER 10 MEQ TAB.ER.PRT PO SCH (08:23)
[2023-06-22] MEDS: CLOPIDOGREL 75 MG TAB PO SCH (08:23)
[2023-06-22] MEDS: ISOSORBIDE MONONITRATE ER 30 MG TAB.ER.24H PO SCH (08:23)
[2023-06-22] MEDS: oxyBUTYnin chloride 5 MG TAB PO SCH (08:23)
[2023-06-22] MEDS: allopurinoL 100 MG TAB PO SCH (08:23)
[2023-06-22] MEDS: AMIODARONE 200 MG TAB PO SCH (08:23)
[2023-06-22] MEDS ORDERED: FUROSEMIDE 20 MG TAB PO SCH (09:00)
[2023-06-22] MEDS ORDERED: SODIUM CHLORIDE 0.9% 250 ML IV SCH (09:15)
[2023-06-22] MEDS ORDERED: APIXABAN 5 MG TAB PO SCH (09:15)
[2023-06-22] MEDS ORDERED: ASPIRIN 81 MG PO SCH (09:15)
[2023-06-22] MEDS ORDERED: APIXABAN 2.5 MG TABLET PO SCH (09:15)
[2023-06-22] MEDS ORDERED: METOPROLOL TARTRATE 25 MG TAB PO SCH (09:15)
[2023-06-22] MEDS: METOPROLOL TARTRATE 50 MG TAB PO SCH (09:37)
--- NOTE | 2023-06-22 11:53 | P.DS ---
Providers Date of admission: 06/21/23 13:10 Attending physician: Deni Schumacher Consults: 06/20/23 13:41 Consult Physician Routine Consulting Provider: [facility] Consult Reason/Comments: Post Interventional Patient Do you want consulting provider notified?: Already Contacted Primary care physician: [facility] Course: The patient is a 78-year-old gentleman who underwent a 2 days ago successful stenting of the right coronary artery with a good angiographic results and no complication. The patient was seen and evaluated this morning me the pressure remains marginal and I am going to give the patient 200 bolus of IV fluid. We adjusted his blood pressure medications including decrease the dose of metoprolol and increasing the dose of Lasix. I am wondering if the pressure being on the marginal side is elevated to subclavian stenosis even though the pressure has been marginal in both arteries. We are going to monitor the patient for the next few hours. If the pressure improved he potentially can be discharged home. Plan - Discharge Summary Discharge Rx Participant: Yes New Discharge Prescriptions: New Aspirin 81 mg PO DAILY #90 tab Apixaban [Eliquis] 2.5 mg PO BID #60 tab Furosemide [Lasix] 20 mg PO DAILY #90 tab Nitroglycerin Sl Tabs [Nitrostat] 0.4 mg SUBLINGUAL Q5M PRN #100 tab PRN Reason: Chest Pain Clopidogrel [Plavix] 75 mg PO DAILY #90 tab Metoprolol Tartrate [Lopressor] 25 mg PO BID #60 tab Continue Amiodarone [Cordarone] 200 mg PO BID Isosorbide Mononitrate ER [Imdur] 30 mg PO DAILY Discontinued Apixaban [Eliquis] 5 mg PO BID Furosemide [Lasix] 40 mg PO DAILY Spironolactone [Aldactone] 25 mg PO DAILY #30 tablet Metoprolol Tartrate [Lopressor] 50 mg PO BID No Action rOPINIRole HCL [Requip] 1 - 2 mg PO HS oxyBUTYnin chloride [Ditropan] 5 mg PO BID Potassium Chloride ER [K-Dur 10] 10 meq PO DAILY Rivastigmine Tartrate [Exelon] 4.5 mg PO BID allopurinoL [Zyloprim] 100 mg PO DAILY Discharge Medication List Rivastigmine Tartrate [Exelon] 4.5 mg PO BID 03/15/23 [History] allopurinoL [Zyloprim] 100 mg PO DAILY 03/15/23 [History] oxyBUTYnin chloride [Ditropan] 5 mg PO BID 03/15/23 [History] rOPINIRole HCL [Requip] 1 - 2 mg PO HS 03/15/23 [History] Isosorbide Mononitrate ER [Imdur] 30 mg PO DAILY 03/26/23 [History] Amiodarone [Cordarone] 200 mg PO BID 06/15/23 [History] Potassium Chloride ER [K-Dur 10] 10 meq PO DAILY 06/15/23 [History] Apixaban [Eliquis] 2.5 mg PO BID #60 tab 06/22/23 [Rx] Aspirin 81 mg PO DAILY #90 tab 06/22/23 [Rx] Clopidogrel [Plavix] 75 mg PO DAILY #90 tab 06/22/23 [Rx] Furosemide [Lasix] 20 mg PO DAILY #90 tab 06/22/23 [Rx] Metoprolol Tartrate [Lopressor] 25 mg PO BID #60 tab 06/22/23 [Rx] Nitroglycerin Sl Tabs [Nitrostat] 0.4 mg SUBLINGUAL Q5M PRN #100 tab 06/22/23 [Rx] Follow up Appointment(s)/Referral(s): Deni Schumacher MD [STAFF PHYSICIAN] - 1 Week (office will call with appointment. ) Patient Instructions/Handouts: Moderate Sedation (DC), After Radial Heart Catheterization (GEN) Activity/Diet/Wound Care/Special Instructions: No driving for two days Ok to shower tomorrow but no baths, pools, lakes, doing dishes by hand for five days. Signs of infection IE: fever, rash, drainage from puncture site, swelling go to ER/doctor for immediate evaluation. Avoid using right wrist/hand to bend, flex, lift greater than 5 lbs for five days. For Heavy Bleeding of puncture site apply firm direct pressure and return to ER. Do not attempt to drive self. low sodium/low fat diet medications as directed by Cardiologists fall precautions
[2023-06-22 14:23] VITALS: BP 93/42; PULSE 71; TEMP 97.2
== END 2023-06-22 14:44 | disposition home or self-care (01) ==
LOC: CATHCVL 08:02 → 3SCARD 13:25 → CATHCVL 06-21 13:10 → 3SCARD 06-21 13:10
PROVIDERS: ADMIT Internal Medicine Interventional Cardiology; ATTEND Internal Medicine Interventional Cardiology
DX: I25.10 Atherosclerotic heart disease of native coronary artery without angina pectoris (principal); I10 Essential (primary) hypertension; E78.5 Hyperlipidemia, unspecified; Z95.1 Presence of aortocoronary bypass graft
CPT/HCPCS: 96360; 93455; 76937; 80053; 80048; 85025 ×2; G0378 ×2; C9600; C1760; C1769 ×4; C1887 ×2; C1725 ×2; C1894; C1874; J2250; J2001; J1644; Q9967; J2371

== ENCOUNTER 2023-10-04 10:15 | Emergency (ER) | payer MEDICARE ==
[2023-10-04 10:19] VITALS: TEMP 98.1
[2023-10-04] MEDS: ASPIRIN 81 MG PO STA (10:44)
[2023-10-04] MEDS: NITROGLYCERIN SL TABS 0.4 MG TAB SUBLINGUAL STA (10:58)
[2023-10-04 11:11] LABS: Basophils % (A) 0 %; Eosinophils # (A) 0.1 k/uL (0-0.7); Eosinophils % (A) 1 %; HGB 14.3 gm/dL (13.0-17.5); Lymphocytes # (A) 1.5 k/uL (1.0-4.8); Lymphocytes % (A) 19 %; MCH 33.8 pg (25.0-35.0); MCHC 31.8 g/dL (31.0-37.0); MCV 106.4 fL (80.0-100.0); Macrocytosis Moderate; Mean Platelet Volume 7.4; Monocytes # (A) 0.5 k/uL (0-1.0); Monocytes % (A) 6 %; Neutrophils # (A) 5.6 k/uL (1.3-7.7); Neutrophils % (A) 71 %; Platelet Count 176 k/uL (150-450); RBC 4.23 m/uL (4.30-5.90); RDW 13.5 % (11.5-15.5); WBC 7.8 k/uL (3.8-10.6)
[2023-10-04 11:22] LABS: INR 1.1 (<1.2); Prothrombin Time 11.7 sec (10.0-12.5)
[2023-10-04 11:28] LABS: ALT 14 U/L (4-49); AST 23 U/L (17-59); African American GFR (CKD) 77 (>60 ml/min/1.73 sqM); Albumin 3.1 g/dL (3.5-5.0); Alkaline Phosphatase 87 U/L (38-126); Anion Gap 4 mmol/L; Blood Urea Nitrogen 20 mg/dL (9-20); Calcium 8.1 mg/dL (8.4-10.2); Carbon Dioxide 28 mmol/L (22-30); Chloride 105 mmol/L (98-107); Glucose 89 mg/dL (74-99); Lipase 40 U/L (23-300); Magnesium 2.2 mg/dL (1.6-2.3); Non-African American GFR(CKD) 66 (>60 ml/min/1.73 sqM); Potassium 4.3 mmol/L (3.5-5.1); Sodium 137 mmol/L (137-145); Total Bilirubin 1.1 mg/dL (0.2-1.3); Total Protein 6.1 g/dL (6.3-8.2)
[2023-10-04 11:37] LABS: NT-Pro-B-Type Natriuretic Pept 392 pg/mL
[2023-10-04 11:43] VITALS: RESP 18
--- NOTE | 2023-10-04 11:43 | XR ---
EXAMINATION TYPE: XR chest 2V DATE OF EXAM: 10/04/2023 11:33 AM CLINICAL INDICATION:Male, 78 years old with history of Chest Pain; [facility] COMPARISON: Chest radiographs from TECHNIQUE: XR chest 2V Frontal and lateral views of the chest. FINDINGS: Lungs/Pleura: There is no evidence of pleural effusion, focal consolidation, or pneumothorax. Pulmonary vascularity: Unremarkable. Heart/mediastinum: Cardiomediastinal silhouette is unremarkable. Postoperative changes are present i n the mediastinum. Sternotomy wires Musculoskeletal: No acute osseous pathology. Other findings: None Lines/Tubes: None IMPRESSION: No radiographic evidence of acute cardiopulmonary disease/process.
[2023-10-04 11:48] LABS: Appearance,Urine Clear (Clear); Bilirubin,Urine Negative (Negative); Blood,Urine Negative (Negative); Color,Urine Colorless; Glucose,Urine (UA) Negative (Negative); Ketones,Urine Negative (Negative); Leukocyte Esterase,Urine Negative (Negative); Nitrite,Urine Negative (Negative); PH, Urine 6.5 (5.0-8.0); Protein,Urine Negative (Negative); Specific Gravity,Urine 1.013 (1.001-1.035); Urobilinogen,Urine <2.0 mg/dL (<2.0)
--- NOTE | 2023-10-04 12:20 | CT ---
EXAMINATION TYPE: CT angio thor/abd pel aorta CT DLP: 1437.8 mGycm, Automated exposure control for dose reduction was used. DATE OF EXAM: 10/04/2023 12:03 PM COMPARISON: None.. CLINICAL INDICATION:Male, 78 years old with history of eval PE/dissection; PHH, Chest pain. Hx of CAB G. TECHNIQUE: Dissection protocol: Multiple axial CT images of the chest, abdomen, and pelvis were obtai gabriela prior and to the administration of IV contrast. 3-D reformats and maximum intensity projection fo rmat were performed on a separate workstation. Contrast used:100ml mL of Isovue 370 without and with IV Contrast, Oral contrast used: FINDINGS: ARTERIAL VASCULATURE: Ascending thoracic aorta and descending thoracic aorta are within normal limits for size. There is no evidence for intramural hematoma within the aorta on noncontrast imaging. Ther e is scattered atherosclerotic plaque throughout the arterial vasculature. Postcontrast imaging demon strates no evidence for dissection. He major vessels of the aortic arch are patent. The major vessels of the abdominal aorta are patent. The aorta is normal in course and caliber. There is no evidence o f aortic dissection, aneurysm or acute aortic injury. Great arch vessels patent and normal in course and caliber. PULMONARY ARTERIAL VASCULATURE: Normal caliber. No evidence of filling defect to suggest pulmonary em bolus. VENOUS SYSTEM: Unremarkable. Lungs/pleura: The lung parenchyma appears unremarkable. Heart: Size is upper limits of normal. Extensive calcific coronary artery atherosclerotic disease. Mediastinum: No gross evidence of adenopathy. Lower Neck: No significant findings. Abdomen: Liver: Unremarkable. Gallbladder and Bile ducts: Unremarkable. Pancreas: Unremarkable. Spleen: Unremarkable. Adrenal glands: Unremarkable. Kidneys and Ureters: Unremarkable. No hydronephrosis. Bladder: Unremarkable. Reproductive: Unremarkable. Stomach and Bowel: No evidence of bowel obstruction. Peritoneum: No evidence of pneumoperitoneum, free fluid, or adenopathy. Musculoskeletal: The osseous structures appear intact. Lymph nodes: No evidence of lymphadenopathy. Abdominal wall/soft tissues: Unremarkable. IMPRESSION: 1. No evidence for thoracic aortic dissection. No evidence of pulmonary embolism.
--- NOTE | 2023-10-04 13:27 | ED ---
General Adult HPI - General Chief complaint: Chest Pain Stated complaint: Chest Pain Time Seen by Provider: 10/04/23 10:31 Source: patient, RN notes reviewed, old records reviewed Mode of arrival: ambulatory Limitations: no limitations - History of Present Illness Initial comments: Patient is a 78-year-old male with past medical history remarkable for coronary bypass, CAD, chronic chest discomfort and dullness who presents emergency department complaining of many weeks of chest dullness. Was sent by his brinell tester Dr. Cope for evaluation for aortic dissection or PE. Patient states no change in pain. No known palliative or provocative factors. States it is a 0 to a 1 out of 10 along his sternum. States he is active including pus h-ups. Presents because he was told to come here. Has no other acute complaints at this time. Denies shortness of breath, abdominal pain, nausea, vomiting.Patient is on blood thinners for atrial flutter. - Related Data Home Medications Medication Instructions Recorded Confirmed Rivastigmine Tartrate [Exelon] 4.5 mg PO BID 03/15/23 06/15/23 allopurinoL [Zyloprim] 100 mg PO DAILY 03/15/23 06/15/23 oxyBUTYnin chloride [Ditropan] 5 mg PO BID 03/15/23 06/15/23 rOPINIRole HCL [Requip] 1 - 2 mg PO HS 03/15/23 06/20/23 Isosorbide Mononitrate ER [Imdur] 30 mg PO DAILY 03/26/23 06/15/23 Amiodarone [Cordarone] 200 mg PO BID 06/15/23 06/15/23 Potassium Chloride ER [K-Dur 10] 10 meq PO DAILY 06/15/23 06/15/23 Previous Rx's Medication Instructions Recorded Apixaban [Eliquis] 2.5 mg PO BID #60 tab 06/22/23 Aspirin 81 mg PO DAILY #90 tab 06/22/23 Clopidogrel [Plavix] 75 mg PO DAILY #90 tab 06/22/23 Furosemide [Lasix] 20 mg PO DAILY #90 tab 06/22/23 Metoprolol Tartrate [Lopressor] 25 mg PO BID #60 tab 06/22/23 Nitroglycerin Sl Tabs [Nitrostat] 0.4 mg SUBLINGUAL Q5M PRN #100 tab 06/22/23 Allergies Allergy/AdvReac Type Severity Reaction Status Date / Time No Known Allergies Allergy Verified 10/04/23 10:19 Review of Systems ROS Statement: Those systems with pertinent positive or pertinent negative responses have been documented in the HPI. Review of Systems: CONST: Denies fever EYES: Denies blurry vision ENT: Denies nasal congestion C/V: Endorses chest pain that is chronic. Dull ache. Multiple weeks. No change. Always present. RESP: Denies shortness of breath GI: Denies abdominal pain : Denies dysuria SKIN: Denies rash. MSK: Denies joint pain. NEURO: Denies headache ROS Other: All systems not noted in ROS Statement are negative. Past Medical History Past Medical History: Chest Pain / Angina, CVA/TIA, Deep Vein Thrombosis (DVT), Hypertension, Sleep Apnea/CPAP/BIPAP Additional Past Medical History / Comment(s): "Forgetful, gets distracted easily." Hx CVA no residual effects, date unknown. No CPAP use. Hx sinusitis, sinus headaches, nasal fracture as a young man, sleep disturbance. Hx DVT many yrs ago. History of Any Multi-Drug Resistant Organisms: None Reported Past Surgical History: Adenoidectomy, Coronary Bypass/CABG, Tonsillectomy Additional Past Surgical History / Comment(s): Unknown date and how many vessels with CABG. Past Anesthesia/Blood Transfusion Reactions: No Reported Reaction Past Psychological History: No Psychological Hx Reported Smoking Status: Never smoker Past Alcohol Use History: Occasional Past Drug Use History: None Reported - Past Family History Father Family Medical History: Coronary Artery Disease (CAD), Myocardial Infarction (NC) Additional Family Medical History / Comment(s): Father of a NC at 47 yrs of age. Mother Family Medical History: Cancer Additional Family Medical History / Comment(s): Mother of lung cancer at age 71yrs. General Exam - General Exam Comments Initial Comments: General: Appears in no acute distress. HEAD: Normal with no signs of head trauma. EYES: PERRLA, EOMI, conjunctiva normal, no discharge. ENT: Hearing grossly intact, normal oropharynx. RESPIRATORY: Clear breath sounds bilaterally. No wheezes, rales, or rhonchi. C/V: Regular rate and rhythm. S1 and S2 auscultated, no edema, peripheral pulses 2+ and intact throughout. Chest pain not reproducible on palpation. ABD: Abd is soft, nontender, nondistended EXT: Normal range of motion, no obvious deformity SKIN: No rashes or lesions observed on exposed skin. NEURO: Alert and oriented x 4. No deficits. Limitations: no limitations Course Vital Signs 10/04/23 10/04/23 10/04/23 10:17 10:49 10:50 Temperature 98.1 F Pulse Rate 80 56 L Respiratory 20 16 18 Rate Blood Pressure 121/84 115/66 O2 Sat by Pulse 97 97 97 Oximetry 10/04/23 10/04/23 10/04/23 11:00 11:30 12:00 Temperature Pulse Rate 53 L Respiratory 18 Rate Blood Pressure 115/66 102/65 117/70 O2 Sat by Pulse 96 Oximetry 10/04/23 10/04/23 12:30 13:00 Temperature Pulse Rate 58 L Respiratory 18 Rate Blood Pressure 107/68 111/65 O2 Sat by Pulse 97 Oximetry Medical Decision Making - Medical Decision Making Was pt. sent in by a medical professional or institution (, PA, STRING STUDIES DIRECTOR, urgent care, hospital, or penitentiary...) When possible be specific @ -Sent by Dr. Cope for evaluation for possible aortic dissection or PE Did you speak to anyone other than the patient for history (EMS, parent, family, police, friend...)? What history was obtained from this source @ -No Did you review nursing and triage notes (agree or disagree)? Why? @ -I reviewed and agree with nursing and triage notes Were old charts reviewed (outside hosp., previous admission, EMS record, old EKG, old radiological studies, urgent care reports/EKG's, penitentiary records)? Report findings @ -Old charts reviewed Differential Diagnosis (chest pain, altered mental status, abdominal pain women, abdominal pain men, vaginal bleeding, weakness, fever, dyspnea, syncope, headache, dizziness, GI bleed, back pain, seizure, CVA, palpatations, mental health, musculoskeletal)? @ -Differential Chest Pain: Stable Angina, Unstable Angina, STEMI, NSTEMI Aortic Dissection, Pneumothorax, Musculoskeletal, Esophageal Spasm GERD, Cholecystitis, Pancreatitis, Zoster, this is not meant to be an all-inclusive list. EKG interpreted by me (3pts min.). @ -As above X-rays interpreted by me (1pt min.). @ -Chest x-ray shows no signs of acute cardiopulmonary process. CT interpreted by me (1pt min.). @ -CT angiogram of the aorta reveals no evidence of aortic dissection or pulmonary embolism. U/S interpreted by me (1pt. min.). @ -None done What testing was considered but not performed or refused? (CT, X-rays, U/S, labs)? Why? @ -None What meds were considered but not given or refused? Why? @ -None Did you discuss the management of the patient with other professionals (professionals i.e. DrLenard, PA, STRING STUDIES DIRECTOR, lab, RT, psych nurse, social work coordinator, senior java architect, teacher, chief informatics officer, case management coordinator)? Give summary @ -Discussed with patient's brinell tester Dr. Cope. Would like evaluation for possible aortic dissection or PE. Was smoking cessation discussed for >3mins.? @ -No Was critical care preformed (if so, how long)? @ -No Were there social determinants of health that impacted care today? How? (Homelessness, low income, unemployed, alcoholism, drug addiction, transportation, low edu. Level, literacy, decrease access to med. care, senior living, rehab)? @ -No Was there de-escalation of care discussed even if they declined (Discuss DNR or withdrawal of care, Hospice)? DNR status @ -No What co-morbidities impacted this encounter? (DM, HTN, Smoking, COPD, CAD, Cancer, CVA, ARF, Chemo, Hep., AIDS, mental health diagnosis, sleep apnea, morbid obesity)? @ -CAD, a flutter on blood thinners Was patient admitted / discharged? Hospital course, mention meds given and route, prescriptions, significant lab abnormalities, going to OR and other pertinent info. @ -Patient presents with chronic chest pain that is unchanged from his baseline for many weeks. He is resting comfortably at this time. We will obtain CT angiogram to evaluate for aortic dissection or PE at his brinell tester Dr. Cope's request. We will also obtain cardiac workup. Patient was in agreement this plan. Vital signs within acceptable limits. He will be given nitroglycerin. Aspirin and other blood thinning products will be held at this time. EKG shows chronic a flutter. Chest x-ray unremarkable. CT angiogram shows no evidence of PE or aortic dissection. Laboratory studies remarkable for undetectable troponin. On reevaluation, I discussed results. He remains at his baseline. I did offer observation admission at this time however he would like to go home. He was amenable to obtain a second troponin for trending. Patient was in agreement this plan. Repeat troponin remains undetectable. As his chest pain is chronic, unchanged, has been ongoing for many weeks and has been following up with cardiology regularly, I do believe this is appropriate to discharge the patient at his request at this time. I did offer admission again but he would like to go home. Patient was in agreement this plan. Strict return precautions discussed. I instructed the patient to follow up with their PCP in the next 1-3 days. . I explained that the patient should return to the emergency department if they experience any worsening symptoms. Strict return precautions were discussed with the patient. The patient expressed understanding of these instructions. I answered all questions that the patient had. The patient was discharged home in good condition with their prescriptions and follow up information. Undiagnosed new problem with uncertain prognosis? @ -No Drug Therapy requiring intensive monitoring for toxicity (Heparin, Nitro, Insulin, Cardizem)? @ -No Were any procedures done? @ -No Diagnosis/symptom? @ -Chronic chest pain Acute, or Chronic, or Acute on Chronic? @ -Chronic Uncomplicated (without systemic symptoms) or Complicated (systemic symptoms)? @ -Uncomplicated Side effects of treatment? @ -No Exacerbation, Progression, or Severe Exacerbation? @ -No Poses a threat to life or bodily function? How? (Chest pain, USA, NC, pneumonia, PE, COPD, DKA, ARF, appy, cholecystitis, CVA, Diverticulitis, Homicidal, Suicidal, threat to staff... and all critical care pts) @ -Unlikely - Lab Data Result diagrams: 10/04/23 10:54 10/04/23 10:54 Lab Results 10/04/23 10/04/23 10/04/23 Range/Units 10:54 10:54 10:54 WBC 7.8 (3.8-10.6) k/uL RBC 4.23 L (4.30-5.90) m/uL Hgb 14.3 (13.0-17.5) gm/dL Hct 45.0 (39.0-53.0) % MCV 106.4 H (80.0-100.0) fL MCH 33.8 (25.0-35.0) pg MCHC 31.8 (31.0-37.0) g/dL RDW 13.5 (11.5-15.5) % Plt Count 176 (150-450) k/uL MPV 7.4 Neutrophils % 71 % Lymphocytes % 19 % Monocytes % 6 % Eosinophils % 1 % Basophils % 0 % Neutrophils # 5.6 (1.3-7.7) k/uL Lymphocytes # 1.5 (1.0-4.8) k/uL Monocytes # 0.5 (0-1.0) k/uL Eosinophils # 0.1 (0-0.7) k/uL Basophils # 0.0 (0-0.2) k/uL Macrocytosis Moderate PT 11.7 (10.0-12.5) sec INR 1.1 (<1.2) APTT 26.0 (22.0-30.0) sec D-Dimer 0.20 (<0.60) mg/L FEU Sodium 137 (137-145) mmol/L Potassium 4.3 (3.5-5.1) mmol/L Chloride 105 (98-107) mmol/L Carbon Dioxide 28 (22-30) mmol/L Anion Gap 4 mmol/L BUN 20 (9-20) mg/dL Creatinine 1.07 (0.66-1.25) mg/dL Est GFR (CKD-EPI)AfAm 77 (>60 ml/min/1.73 sqM) Est GFR (CKD-EPI)NonAf 66 (>60 ml/min/1.73 sqM) Glucose 89 (74-99) mg/dL Calcium 8.1 L (8.4-10.2) mg/dL Magnesium 2.2 (1.6-2.3) mg/dL Total Bilirubin 1.1 (0.2-1.3) mg/dL AST 23 (17-59) U/L ALT 14 (4-49) U/L Alkaline Phosphatase 87 (38-126) U/L Troponin I (0.000-0.034) ng/mL NT-Pro-B Natriuret Pep 392 pg/mL Total Protein 6.1 L (6.3-8.2) g/dL Albumin 3.1 L (3.5-5.0) g/dL Lipase 40 (23-300) U/L Urine Color Urine Appearance (Clear) Urine pH (5.0-8.0) Ur Specific [place] (1.001-1.035) Urine Protein (Negative) Urine Glucose (UA) (Negative) Urine Ketones (Negative) Urine Blood (Negative) Urine Nitrite (Negative) Urine Bilirubin (Negative) Urine Urobilinogen (<2.0) mg/dL Ur Leukocyte Esterase (Negative) 10/04/23 10/04/23 10/04/23 Range/Units 10:54 11:27 12:36 WBC (3.8-10.6) k/uL RBC (4.30-5.90) m/uL Hgb (13.0-17.5) gm/dL Hct (39.0-53.0) % MCV (80.0-100.0) fL MCH (25.0-35.0) pg MCHC (31.0-37.0) g/dL RDW (11.5-15.5) % Plt Count (150-450) k/uL MPV Neutrophils % % Lymphocytes % % Monocytes % % Eosinophils % % Basophils % % Neutrophils # (1.3-7.7) k/uL Lymphocytes # (1.0-4.8) k/uL Monocytes # (0-1.0) k/uL Eosinophils # (0-0.7) k/uL Basophils # (0-0.2) k/uL Macrocytosis PT (10.0-12.5) sec INR (<1.2) APTT (22.0-30.0) sec D-Dimer (<0.60) mg/L FEU Sodium (137-145) mmol/L Potassium (3.5-5.1) mmol/L Chloride (98-107) mmol/L Carbon Dioxide (22-30) mmol/L Anion Gap mmol/L BUN (9-20) mg/dL Creatinine (0.66-1.25) mg/dL Est GFR (CKD-EPI)AfAm (>60 ml/min/1.73 sqM) Est GFR (CKD-EPI)NonAf (>60 ml/min/1.73 sqM) Glucose (74-99) mg/dL Calcium (8.4-10.2) mg/dL Magnesium (1.6-2.3) mg/dL Total Bilirubin (0.2-1.3) mg/dL AST (17-59) U/L ALT (4-49) U/L Alkaline Phosphatase (38-126) U/L Troponin I <0.012 <0.012 (0.000-0.034) ng/mL NT-Pro-B Natriuret Pep pg/mL Total Protein (6.3-8.2) g/dL Albumin (3.5-5.0) g/dL Lipase (23-300) U/L Urine Color Colorless Urine Appearance Clear (Clear) Urine pH 6.5 (5.0-8.0) Ur Specific [place] 1.013 (1.001-1.035) Urine Protein Negative (Negative) Urine Glucose (UA) Negative (Negative) Urine Ketones Negative (Negative) Urine Blood Negative (Negative) Urine Nitrite Negative (Negative) Urine Bilirubin Negative (Negative) Urine Urobilinogen <2.0 (<2.0) mg/dL Ur Leukocyte Esterase Negative (Negative) - EKG Data -: EKG Interpreted by Me EKG Comments: 12-lead Electrocardiogram Interpretation Note EKG was reviewed and interpreted by myself. 12-lead ECG performed at 1025 is interpreted by me as revealing atrial flutter at a rate of 59 beats per minute. Incomplete right bundle branch block. Left axis deviation. QRS duration is 108 ms, QTc is 520 ms.. There were no ST or T wave abnormalities to suggest myocardial ischemia or injury. R wave progression across the precordium was satisfactory. By my interpretation this EKG is non-diagnostic for acute ischemia. Disposition Clinical Impression: Atypical chest pain Disposition: HOME SELF-CARE Condition: Good Instructions (If sedation given, give patient instructions): Chest Pain (ED) Is patient prescribed a controlled substance at d/c from ED?: No Referrals: Delonte Vasquez MD [Primary Care Provider] - 1-2 days Time of Disposition: 13:27
[2023-10-04 13:56] VITALS: BP 111/65; PULSE 58
== END 2023-10-04 13:34 | disposition home or self-care (01) ==
LOC: EC 10:15
DX: I48.92 Unspecified atrial flutter (principal); I45.10 Unspecified right bundle-branch block; G89.29 Other chronic pain; I25.10 Atherosclerotic heart disease of native coronary artery without angina pectoris; Z79.01 Long term (current) use of anticoagulants; Z95.1 Presence of aortocoronary bypass graft
CPT/HCPCS: 36415; 93005; 85379; 83880; 80053; 83690; 83735; 84484; 85025; 85610; 85730; 81003; 71046; 71275; 74174; 99285; Q9967

== ENCOUNTER → 2024-07-09 | Outpatient (CLI) | payer MEDICARE ==
[2024-07-09 21:20] LABS: ALT 23 U/L (10-49); AST 21 U/L (14-35); Alkaline Phosphatase 109 U/L (41-126); BUN/Creat Ratio 20.08 Ratio (12.00-20.00); Blood Urea Nitrogen 26.1 mg/dL (9.0-27.0); Calcium 8.6 mg/dL (8.7-10.3); Carbon Dioxide 26.8 mmol/L (21.6-31.8); Chloride 103 mmol/L (96-109); Chol/HDL Ratio 2.56 Ratio; Globulin 2.5 g/dL (1.6-3.3); Glucose 117 mg/dL (70-110); LDL Cholesterol,Calculated 69.1 mg/dL (0.0-131.0); Sodium 141 mmol/L (135-145); Total Bilirubin 1.2 mg/dL (0.3-1.2); Total Protein 6.5 g/dL (6.2-8.2)
[2024-07-09 23:33] LABS: NT-Pro-B-Type Natriuretic Pept 384 pg/mL (0-450)
== END | disposition home or self-care (01) ==
LOC: LABWHC1 15:28
PROVIDERS: ATTEND Internal Medicine Interventional Cardiology
DX: I48.3 Typical atrial flutter (principal); I42.8 Other cardiomyopathies
CPT/HCPCS: 36415; 80053; 80061; 83880; 84443

== ENCOUNTER → 2024-09-14 | Outpatient (CLI) | payer MEDICARE ==
[2024-09-14 13:58] LABS: ALT 22 U/L (10-49); AST 22 U/L (14-35); Albumin 3.5 g/dL (3.8-4.9); Albumin/Globulin Ratio 1.75 Ratio (1.60-3.17); Alkaline Phosphatase 112 U/L (41-126); BUN/Creat Ratio 14.38 Ratio (12.00-20.00); Blood Urea Nitrogen 18.7 mg/dL (9.0-27.0); Calcium 8.6 mg/dL (8.7-10.3); Chloride 103 mmol/L (96-109); Chol/HDL Ratio 2.84 Ratio; Glucose 102 mg/dL (70-110); LDL Cholesterol,Calculated 68.1 mg/dL (0.0-131.0); Potassium 3.7 mmol/L (3.5-5.5); Sodium 142 mmol/L (135-145); Total Bilirubin 0.9 mg/dL (0.3-1.2); Total Protein 5.5 g/dL (6.2-8.2)
== END | disposition home or self-care (01) ==
LOC: LABWHC1 08:14
PROVIDERS: ATTEND Internal Medicine Interventional Cardiology
DX: E78.2 Mixed hyperlipidemia (principal); I48.21 Permanent atrial fibrillation
CPT/HCPCS: 36415; 80053; 80061; 84443

== ENCOUNTER 2024-12-21 15:46 | Observation (INO) | payer MEDICARE ==
[2024-12-21 16:47] LABS: Basophils # (A) 0.03 10*3/uL (0.00-0.10); Basophils % (A) 0.4 %; Eosinophils # (A) 0.10 10*3/uL (0.04-0.35); Eosinophils % (A) 1.2 %; HCT 39.7 % (39.6-50.0); HGB 13.9 g/dL (13.0-17.0); Lymphocytes # (A) 2.00 10*3/uL (0.90-5.00); Lymphocytes % (A) 23.7 %; MCH 35.6 pg (27.0-32.0); MCHC 35.0 g/dL (32.0-37.0); MCV 101.8 fL (80.0-97.0); Monocytes # (A) 0.83 10*3/uL (0.20-1.00); Monocytes % (A) 9.8 %; Neutrophils # (A) 5.45 10*3/uL (1.80-7.70); Neutrophils % (A) 64.5 %; Platelet Count 167 10*3/uL (140-440); RBC 3.90 10*6/uL (4.40-5.60); RDW 14.1 % (11.5-14.5); WBC 8.44 10*3/uL (4.50-10.00)
[2024-12-21 17:00] LABS: ALT 17 U/L (4-49); AST 27 U/L (17-59); African American GFR (CKD) 54 (>60 ml/min/1.73 sqM); Albumin 4.0 g/dL (3.5-5.0); Alkaline Phosphatase 99 U/L (38-126); Anion Gap 8 mmol/L; Blood Urea Nitrogen 26 mg/dL (9-20); Calcium 9.0 mg/dL (8.4-10.2); Carbon Dioxide 32 mmol/L (22-30); Chloride 101 mmol/L (98-107); Glucose 88 mg/dL (74-99); Magnesium 2.1 mg/dL (1.6-2.3); Non-African American GFR(CKD) 47 (>60 ml/min/1.73 sqM); Potassium 3.2 mmol/L (3.5-5.1); Sodium 141 mmol/L (137-145); Total Protein 6.8 g/dL (6.3-8.2)
[2024-12-21 17:03] LABS: INR 1.1 (<1.2); Partial Thromboplastin Time 24.9 sec (22.0-30.0); Prothrombin Time 12.0 sec (10.0-12.5)
--- NOTE | 2024-12-21 17:04 | XR ---
EXAMINATION TYPE: XR chest 2V DATE OF EXAM: 12/21/2024 4:56 PM COMPARISON: Chest radiographs from 07/23/2024 TECHNIQUE: XR chest 2V Frontal and lateral views of the chest. CLINICAL INDICATION:Male, 79 years old with history of CAD hx LE swelling; FINDINGS: Lungs/Pleura: There is no evidence of pleural effusion, focal consolidation, or pneumothorax. Pulmonary vascularity: Unremarkable. Heart/mediastinum: Cardiomediastinal silhouette is prominent in size. Musculoskeletal: No acute osseous pathology. Midline sternotomy wires are noted and stable. 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 IMPRESSION: No acute cardiopulmonary disease/process. [facility], , 12/21/2024 5:02 PM
[2024-12-21 17:09] LABS: NT-Pro-B-Type Natriuretic Pept 380 pg/mL
--- NOTE | 2024-12-21 17:33 | US ---
EXAMINATION TYPE: US venous doppler duplex LE BI DATE OF EXAM: 12/21/2024 4:34 PM COMPARISON: NONE CLINICAL INDICATION: Male, 79 years old with history of Bilat LE swelling; bilateral calf swelling an d redness, Pain TECHNIQUE: The lower extremity deep venous system is examined utilizing real time linear array sonog kwadwo with graded compression, color doppler sonography, and spectral doppler. SIDE PERFORMED: Bilateral FINDINGS: VESSELS IMAGED: Common Femoral Vein Deep Femoral Vein Greater Saphenous Vein * Femoral Vein Popliteal Vein Small Saphenous Vein * Proximal Calf Veins (* superficial vessels) Right Leg: Negative for DVT, Color Doppler imaging shows patency of the vessels. Spectral waveforms are within normal limits. Left Leg: Negative for DVT, Color Doppler imaging shows patency of the vessels. Spectral waveforms a re within normal limits. Subcutaneous edema within the bilateral calf regions with left greater than right. IMPRESSION: 1. No ultrasound evidence for deep venous thrombosis. 2. Subcutaneous edema within the bilateral calf regions with left greater than right. [facility], , 12/21/2024 5:30 PM
[2024-12-21] MEDS ORDERED: HYDROcodone/APAP 5-325MG 1 EACH TAB PO PRN (19:11)
[2024-12-21] MEDS ORDERED: ONDANSETRON 4 MG/2 ML VIAL IVP PRN (19:11)
[2024-12-21] MEDS ORDERED: NALOXONE 0.4 MG/ML 1 ML VIAL IV PRN (19:11)
[2024-12-21] MEDS ORDERED: ACETAMINOPHEN TAB 325 MG TAB PO PRN (19:11)
[2024-12-21] MEDS ORDERED: BACLOFEN 10 MG TAB PO PRN (19:13)
[2024-12-21] MEDS ORDERED: NITROGLYCERIN SL TABS 0.4 MG TAB SUBLINGUAL PRN (19:13)
--- NOTE | 2024-12-21 19:18 | ED ---
General Adult HPI - General Chief complaint: Extremity Problem,Nontraumatic Stated complaint: bilat feet/leg swelling Time Seen by Provider: 12/21/24 15:52 Source: patient Mode of arrival: ambulatory Limitations: no limitations - History of Present Illness Initial comments: Patient is a pleasant 79 y/o gentleman hx CAD presenting today for LE swelling. Ongoing x few weeks. Now mildly erythematous and has blistered. Pt denies hx CHF/ diuretic use. Denies chest pain, shortness of breath, fevers, chills, nausea, vomiting, abdominal pain, diarrhea, melena/hematochezia. States feet feel odd 2/2 degree of swelling but otherwise denies numbness. Denies additional complaints. - Related Data Home Medications Medication Instructions Recorded Confirmed oxyBUTYnin chloride [Ditropan] 5 mg PO BID 03/15/23 12/21/24 Potassium Chloride ER [K-Dur 10] 10 meq PO DAILY 06/15/23 12/21/24 Amiodarone [Cordarone] 100 mg PO BID 12/21/24 12/21/24 Apixaban [Eliquis] 2.5 mg PO BID 12/21/24 12/21/24 Baclofen [Lioresal] 10 mg PO TID PRN 12/21/24 12/21/24 Bumetanide [BUMEX] 2 mg PO DAILY 12/21/24 12/21/24 Levothyroxine Sodium [Synthroid] 50 mcg PO DAILY 12/21/24 12/21/24 Rivastigmine Tartrate 6 mg PO BID 12/21/24 12/21/24 [Rivastigmine] Previous Rx's Medication Instructions Recorded Metoprolol Tartrate [Lopressor] 25 mg PO BID #60 tab 06/22/23 Nitroglycerin Sl Tabs [Nitrostat] 0.4 mg SUBLINGUAL Q5M PRN #100 tab 06/22/23 Allergies Allergy/AdvReac Type Severity Reaction Status Date / Time No Known Allergies Allergy Verified 12/21/24 17:58 Review of Systems ROS Statement: Those systems with pertinent positive or pertinent negative responses have been documented in the HPI. ROS Other: All systems not noted in ROS Statement are negative. Past Medical History Past Medical History: Chest Pain / Angina, CVA/TIA, Deep Vein Thrombosis (DVT), Hypertension, Sleep Apnea/CPAP/BIPAP Additional Past Medical History / Comment(s): "Forgetful, gets distracted easily." Hx CVA no residual effects, date unknown. No CPAP use. Hx sinusitis, sinus headaches, nasal fracture as a young man, sleep disturbance. Hx DVT many yrs ago. History of Any Multi-Drug Resistant Organisms: None Reported Past Surgical History: Adenoidectomy, Coronary Bypass/CABG, Tonsillectomy Additional Past Surgical History / Comment(s): Unknown date and how many vessels with CABG. Past Anesthesia/Blood Transfusion Reactions: No Reported Reaction Past Psychological History: No Psychological Hx Reported Smoking Status: Never smoker Past Alcohol Use History: Occasional Past Drug Use History: None Reported - Past Family History Father Family Medical History: Coronary Artery Disease (CAD), Myocardial Infarction ([place]) Additional Family Medical History / Comment(s): Father of a [place] at 47 yrs of age. Mother Family Medical History: Cancer Additional Family Medical History / Comment(s): Mother of lung cancer at age 71yrs. General Exam - General Exam Comments Initial Comments: PE: CONSTITUTIONAL: No apparent distress, well appearing SKIN: Warm, dry, no jaundice, hives or petechiae, mild erythema of the bilateral distal lower extremities with few clear ruptured blistered lesions, no exudates EYES: Pupils are equally round, extraocular movements intact without nystagmus, clear conjunctiva, non-icteric sclera HENT: Normocephalic, atraumatic, moist mucus membranes, oropharynx clear without exudates NECK: , Full range of motion, normal appearance PULMONARY: Clear to auscultation without wheezes, rhonchi, or rales, normal excursion, no accessory muscle use and no stridor CARDIOVASCULAR: Regular rate, rhythm, normal S1 and S2. No appreciated murmurs, rubs or gallops. Strong radial pulses with intact distal perfusion. 2+ DP pulses palpated in the bilateral lower extremities with less than 2 seconds capillary refill 3+ lower extremity pitting edema extending up to knees GASTROINTESTINAL: Soft, active bowel sounds throughout, non-tender, non- distended, no palpable masses, no rebound or guarding. No hepatosplenomegaly MUSCULOSKELETAL: Extremities have no gross deformity NEUROLOGIC:_a/o x 3, GCS 15, normal mentation and speech. Moves all extremities x 4 without motor or sensory deficit PSYCHIATRIC:_normal mood and affect, thought process is clear and linear Limitations: no limitations Course Vital Signs 12/21/24 12/21/24 12/21/24 15:47 18:32 19:40 Temperature 97.6 F Pulse Rate 58 L 66 60 Respiratory 16 18 18 Rate Blood Pressure 120/72 108/64 101/76 O2 Sat by Pulse 99 100 Oximetry 12/21/24 21:53 Temperature Pulse Rate 55 L Respiratory 18 Rate Blood Pressure 106/74 O2 Sat by Pulse 99 Oximetry EKG Findings - EKG Comments: EKG Findings:: Atrial flutter, rate 60 bpm QTc QTc borderline prolonged 40/455, left axis deviation, no significant ST elevations or depressions Medical Decision Making - Medical Decision Making Was pt. sent in by a medical professional or institution (, [place], [facility], urgent care, hospital, or care home...) When possible be specific @ -No Did you speak to anyone other than the patient for history (EMS, parent, family, police, friend...)? What history was obtained from this source @ -No Did you review nursing and triage notes (agree or disagree)? Why? @ -I reviewed nursing and triage notes Were old charts reviewed (outside hosp., previous admission, EMS record, old EKG, old radiological studies, urgent care reports/EKG's, care home records)? Report findings @ -Medical records reviewed-Reviewed report of thoracic aorta CT obtained/, showed no evidence of dissection or PE Differential Diagnosis (chest pain, altered mental status, abdominal pain women, abdominal pain men, vaginal bleeding, weakness, fever, dyspnea, syncope, headache, dizziness, GI bleed, back pain, seizure, CVA, palpatations, mental health, musculoskeletal)? @Differential diagnosis remains broad however top considerations include cellulitis, DVT, CHF exacerbation or new onset CHF, lymphedema this is not all- inclusive list EKG interpreted by me (3pts min.). @ -As above X-rays interpreted by me (1pt min.). @Personally viewed chest x-ray appears to show mild cardiomegaly without pleural effusions or consolidations CT interpreted by me (1pt min.). @ -None done U/S interpreted by me (1pt. min.). @Reviewed ultrasound, no evidence of DVT What testing was considered but not performed or refused? (CT, X-rays, U/S, labs)? Why? @ -None What meds were considered but not given or refused? Why? @ -None Did you discuss the management of the patient with other professionals (professionals i.e. , MARIA TERESA, [facility], lab, RT, psych nurse, social work therapist, server administrator, teacher, client sales and service officer, disease case manager rn)? Give summary @ -No Was smoking cessation discussed for >3mins.? @ -No Was critical care preformed (if so, how long)? @ -No Were there social determinants of health that impacted care today? How? (Homelessness, low income, unemployed, alcoholism, drug addiction, transportation, low edu. Level, literacy, decrease access to med. care, penitentiary, rehab)? @ -No Was there de-escalation of care discussed even if they declined (Discuss DNR or withdrawal of care, Hospice)? @ -No What co-morbidities impacted this encounter? (DM, HTN, Smoking, COPD, CAD, Cancer, CVA, ARF, Chemo, Hep., AIDS, mental health diagnosis, sleep apnea, morbid obesity)? @ -CAD, atrial fibrillation Was patient admitted / discharged? Hospital course, mention meds given and route, prescriptions, significant lab abnormalities, going to OR and other pertinent info. @ Admission- Patient is a pleasant 79 y/o gentleman presenting today for bilateraly LE edema. Denies history of CHF. VSS on arrival. On assessment pt is resting comfortably, well appearing NAD. Exam significant for bilateral 3+ LE pitting edema up to knees, few blistered lesions with clear fluid and mild erythema. Differential dx as above. Pt denied injury. Plan for US Bilateral LE, CXR, EKG, CBC, CMP, troponin, BNP. Additionally, out of concern for developing cellulitis will administer rocephin. Labs ultimately significant for potassium 3.2, GFR 47, previously on 07/23/2024 was 54, creatinine 1.41, previously was 1.3, indicating mild BOBBY, troponin and BNP nonelevated. Ordered IV Lasix initially however on chart review patient is on Bumex will order 2 mg IV Bumex. Ordered replacement potassium. Updated patient to findings and plan for admission to which he was agreeable. Case discussed with Dr. Ornelas, who kindly accepted patient for admission. Undiagnosed new problem with uncertain prognosis? @ -No Drug Therapy requiring intensive monitoring for toxicity (Heparin, Nitro, Insulin, Cardizem)? @ -No Were any procedures done? @ -No Diagnosis/symptom? @ -Lower extremity edema, cellulitis, BOBBY Acute, or Chronic, or Acute on Chronic? @ -Acute Uncomplicated (without systemic symptoms) or Complicated (systemic symptoms)? @ -Complicated Side effects of treatment? @ -No Exacerbation, Progression, or Severe Exacerbation? @ -No Poses a threat to life or bodily function? How? (Chest pain, [place], [place], pneumonia, PE, COPD, DKA, ARF, appy, cholecystitis, CVA, Diverticulitis, Homicidal, Suicidal, threat to staff... and all critical care pts) @ -Potentially - Lab Data Result diagrams: 12/21/24 16:38 12/21/24 16:38 Lab Results 12/21/24 12/21/24 12/21/24 Range/Units 16:38 16:38 16:38 WBC 8.44 (4.50-10.00) 10*3/uL RBC 3.90 L (4.40-5.60) 10*6/uL Hgb 13.9 (13.0-17.0) g/dL Hct 39.7 (39.6-50.0) % MCV 101.8 H (80.0-97.0) fL MCH 35.6 H (27.0-32.0) pg MCHC 35.0 (32.0-37.0) g/dL Plt Count 167 (140-440) 10*3/uL MPV 9.3 L (9.5-12.2) fL Immature Gran % (Auto) 0.4 % Neutrophils % 64.5 % Lymphocytes % 23.7 % Monocytes % 9.8 % Eosinophils % 1.2 % Basophils % 0.4 % Immature Gran # 0.03 (0.00-0.04) 10*3/uL Neutrophils # 5.45 (1.80-7.70) 10*3/uL Lymphocytes # 2.00 (0.90-5.00) 10*3/uL Monocytes # 0.83 (0.20-1.00) 10*3/uL Eosinophils # 0.10 (0.04-0.35) 10*3/uL Basophils # 0.03 (0.00-0.10) 10*3/uL PT 12.0 (10.0-12.5) sec INR 1.1 (<1.2) APTT 24.9 (22.0-30.0) sec Sodium 141 (137-145) mmol/L Potassium 3.2 L (3.5-5.1) mmol/L Chloride 101 (98-107) mmol/L Carbon Dioxide 32 H (22-30) mmol/L Anion Gap 8 mmol/L BUN 26 H (9-20) mg/dL Creatinine 1.41 H (0.66-1.25) mg/dL Est GFR (CKD-EPI)AfAm 54 (>60 ml/min/1.73 sqM) Est GFR (CKD-EPI)NonAf 47 (>60 ml/min/1.73 sqM) Glucose 88 (74-99) mg/dL Calcium 9.0 (8.4-10.2) mg/dL Magnesium 2.1 (1.6-2.3) mg/dL Total Bilirubin 2.5 H (0.2-1.3) mg/dL AST 27 (17-59) U/L ALT 17 (4-49) U/L Alkaline Phosphatase 99 (38-126) U/L Troponin I (0.000-0.034) ng/mL NT-Pro-B Natriuret Pep 380 pg/mL Total Protein 6.8 (6.3-8.2) g/dL Albumin 4.0 (3.5-5.0) g/dL 12/21/24 Range/Units 16:38 WBC (4.50-10.00) 10*3/uL RBC (4.40-5.60) 10*6/uL Hgb (13.0-17.0) g/dL Hct (39.6-50.0) % MCV (80.0-97.0) fL MCH (27.0-32.0) pg MCHC (32.0-37.0) g/dL Plt Count (140-440) 10*3/uL MPV (9.5-12.2) fL Immature Gran % (Auto) % Neutrophils % % Lymphocytes % % Monocytes % % Eosinophils % % Basophils % % Immature Gran # (0.00-0.04) 10*3/uL Neutrophils # (1.80-7.70) 10*3/uL Lymphocytes # (0.90-5.00) 10*3/uL Monocytes # (0.20-1.00) 10*3/uL Eosinophils # (0.04-0.35) 10*3/uL Basophils # (0.00-0.10) 10*3/uL PT (10.0-12.5) sec INR (<1.2) APTT (22.0-30.0) sec Sodium (137-145) mmol/L Potassium (3.5-5.1) mmol/L Chloride (98-107) mmol/L Carbon Dioxide (22-30) mmol/L Anion Gap mmol/L BUN (9-20) mg/dL Creatinine (0.66-1.25) mg/dL Est GFR (CKD-EPI)AfAm (>60 ml/min/1.73 sqM) Est GFR (CKD-EPI)NonAf (>60 ml/min/1.73 sqM) Glucose (74-99) mg/dL Calcium (8.4-10.2) mg/dL Magnesium (1.6-2.3) mg/dL Total Bilirubin (0.2-1.3) mg/dL AST (17-59) U/L ALT (4-49) U/L Alkaline Phosphatase (38-126) U/L Troponin I <0.012 (0.000-0.034) ng/mL NT-Pro-B Natriuret Pep pg/mL Total Protein (6.3-8.2) g/dL Albumin (3.5-5.0) g/dL Disposition Clinical Impression: Cellulitis, Lower extremity edema, Hypokalemia Disposition: ADMITTED IP TO THIS HOSP Condition: Stable
[2024-12-21] MEDS: POTASSIUM CHLORIDE ER 20 MEQ TAB.ER PO STA (19:35)
[2024-12-21] MEDS: BUMETANIDE 0.25 MG/ML 10 ML VIAL IV STA (19:35)
[2024-12-21] MEDS: FUROSEMIDE 10 MG/ML 4 ML VIAL IV STA (19:52)
[2024-12-21] MEDS: APIXABAN 2.5 MG TABLET PO SCH (20:30)
[2024-12-21] MEDS: METOPROLOL TARTRATE 25 MG TAB PO SCH (20:30)
[2024-12-21] MEDS: FAMOTIDINE 20 MG TAB PO SCH (20:31)
[2024-12-21] MEDS: DONEPEZIL 10 MG TAB PO SCH (20:31)
[2024-12-21] MEDS ORDERED: HEPARIN SODIUM,PORCINE 5,000 UNIT/ML 1 ML VIAL SQ SCH (21:00)
[2024-12-21] MEDS: AMIODARONE 100 MG TAB PO SCH (21:51)
[2024-12-22] MEDS: LEVOTHYROXINE 50 MCG TAB PO SCH (05:51)
[2024-12-22] MEDS: POTASSIUM CHLORIDE ER 10 MEQ TAB.ER.PRT PO SCH (09:02)
[2024-12-22] MEDS: BUMETANIDE 1 MG TAB PO SCH (09:02)
--- NOTE | 2024-12-22 13:54 | P.CRDCN ---
History of Present Illness Consult date: 12/22/24 History of present illness: HISTORY OF PRESENTING ILLNESS: 79-year-old male presented to the hospital because of increased worsening lower extremity edema along with redness erythema on bilateral judge. He is admitted with working diagnosis of CHF exacerbation and cellulitis. Cardiology is consulted for CHF management he does have prior history of atrial fibrillation CABG and CAD. 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 ................................................................................ .......................... Pertient Vitals: BP 120/67, heart rate 60 bpm Pertient Labs: Hb 13.9, BUN 26, creatinine 1.4, troponin is not elevated, NT- proBNP 380 EKG: Atrial fibrillation heart rate 60 bpm, left axis deviation Pertient Imaging: No significant congestion or consolidation suggestive of fluid overload pneumonia ................................................................................ .............................................................. Prior cardiac testing: Echo from 03/2023 shows an EF of 40 to 45% mild concentric LVH, mild MR mild AI RVSP 21 ........................................ ................................................................................ ...................... REVIEW OF SYSTEMS: 14 point review of system is negative except what is mentioned above in HPI. . ................................................................................ ............................................................. PHYSICAL EXAMINATION: Neck: Brisk carotid upstroke, no jugular venous distention. Lungs: Minimal crackles in bilateral bases Heart: Irregular pulse, mild systolic murmur audible Abdomen: Soft nontender, positive bowel sounds. Extremities: 1-2+ pitting edema bilateral extremity with erythema in bilateral judge with some wounds. Neuro: Alert, oritented, no focal deficits. Detailed neuro exam was not performed. .............................................. ................................................................................ ................ ASSESSMENT: # Mild CHF exacerbation # Ischemic cardiomyopathy with HFmrEF # CAD status post CABG # Persistent atrial fibrillation # Cellulitis bilateral lower extremity PLAN: I recommend IV Lasix 40 mg twice daily today and then transition to p.o. He takes Bumex 2 mg daily at home Continue Eliquis 2.5 mg twice daily, amiodarone 100 mg daily, metoprolol reduced to succinate 25 mg daily Obtain updated echocardiogram Lipid panel HbA1c TSH levels Iraj Sánchez MD, FACC, RPVI Past Medical History Past Medical History: Chest Pain / Angina, CVA/TIA, Deep Vein Thrombosis (DVT), Hypertension, Sleep Apnea/CPAP/BIPAP Additional Past Medical History / Comment(s): "Forgetful, gets distracted easily." Hx CVA no residual effects, date unknown. No CPAP use. Hx sinusitis, sinus headaches, nasal fracture as a young man, sleep disturbance. Hx DVT many yrs ago. History of Any Multi-Drug Resistant Organisms: None Reported Past Surgical History: Adenoidectomy, Coronary Bypass/CABG, Tonsillectomy Additional Past Surgical History / Comment(s): Unknown date and how many vessels with CABG. Past Anesthesia/Blood Transfusion Reactions: No Reported Reaction Past Psychological History: No Psychological Hx Reported Additional Psychological History / Comment(s): . Smoking Status: Never smoker Past Alcohol Use History: Occasional Past Drug Use History: None Reported - Past Family History Father Family Medical History: Coronary Artery Disease (CAD), Myocardial Infarction ([place]) Additional Family Medical History / Comment(s): Father of a [place] at 47 yrs of age. Mother Family Medical History: Cancer Additional Family Medical History / Comment(s): Mother of lung cancer at age 71yrs. Medications and Allergies Home Medications Medication Instructions Recorded Confirmed Type oxyBUTYnin chloride [Ditropan] 5 mg PO BID 03/15/23 12/21/24 History Potassium Chloride ER [K-Dur 10] 10 meq PO DAILY 06/15/23 12/21/24 History Metoprolol Tartrate [Lopressor] 25 mg PO BID #60 tab 06/22/23 12/21/24 Rx Nitroglycerin Sl Tabs [Nitrostat] 0.4 mg SUBLINGUAL Q5M PRN #100 tab 06/22/23 12/21/24 Rx Amiodarone [Cordarone] 100 mg PO BID 12/21/24 12/21/24 History Apixaban [Eliquis] 2.5 mg PO BID 12/21/24 12/21/24 History Baclofen [Lioresal] 10 mg PO TID PRN 12/21/24 12/21/24 History Bumetanide [BUMEX] 2 mg PO DAILY 12/21/24 12/21/24 History Levothyroxine Sodium [Synthroid] 50 mcg PO DAILY 12/21/24 12/21/24 History Rivastigmine Tartrate 6 mg PO BID 12/21/24 12/21/24 History [Rivastigmine] Allergies Allergy/AdvReac Type Severity Reaction Status Date / Time No Known Allergies Allergy Verified 12/21/24 17:58 Physical Exam Vitals: Vital Signs Temp Pulse Pulse Resp BP BP Pulse Ox 12/22/24 07: 97.6 F 46 L 15 99/62 97 12/22/24 02:11 61 18 12/22/24 00:04 97.7 F 61 18 113/60 99 12/21/24 22:21 97.7 F 60 18 120/67 100 12/21/24 21:53 55 L 18 106/74 99 12/21/24 19:40 60 18 101/76 12/21/24 18:32 66 18 108/64 100 12/21/24 15:47 97.6 F 58 L 16 120/72 99 Intake and Output 12/21/24 12/22/24 12/22/24 22:59 06:59 14:59 Intake Total 240 Balance 240 Intake: Oral 240 Other: Voiding Method Toilet # Voids 1 4 Weight 83.915 kg Results 12/21/24 16:38 12/21/24 16:38 Cardiac Enzymes 12/21/24 12/21/24 Range/Units 16:38 16:38 AST 27 (17-59) U/L Troponin I <0.012 (0.000-0.034) ng/mL Coagulation 12/21/24 Range/Units 16:38 PT 12.0 (10.0-12.5) sec APTT 24.9 (22.0-30.0) sec CBC 12/21/24 Range/Units 16:38 WBC 8.44 (4.50-10.00) 10*3/uL RBC 3.90 L (4.40-5.60) 10*6/uL Hgb 13.9 (13.0-17.0) g/dL Hct 39.7 (39.6-50.0) % Plt Count 167 (140-440) 10*3/uL Comprehensive Metabolic Panel 12/21/24 Range/Units 16:38 Sodium 141 (137-145) mmol/L Potassium 3.2 L (3.5-5.1) mmol/L Chloride 101 (98-107) mmol/L Carbon Dioxide 32 H (22-30) mmol/L BUN 26 H (9-20) mg/dL Creatinine 1.41 H (0.66-1.25) mg/dL Glucose 88 (74-99) mg/dL Calcium 9.0 (8.4-10.2) mg/dL AST 27 (17-59) U/L ALT 17 (4-49) U/L Alkaline Phosphatase 99 (38-126) U/L Total Protein 6.8 (6.3-8.2) g/dL Albumin 4.0 (3.5-5.0) g/dL Current Medications Generic Name Dose Route Start Last Admin Trade Name Freq PRN Reason Stop Dose Admin Acetaminophen 650 mg 12/21/24 19:11 Acetaminophen Tab 325 Mg Tab PO Q6HR PRN Mild Pain or Fever > 100.5 Hydrocodone Bitart/Acetaminophen 1 each 12/21/24 19:11 Hydrocodone/Apap 5-325mg 1 Each Tab PO Q6HR PRN Moderate Pain (Scale 4 to 6) Amiodarone HCl 100 mg 12/21/24 21:00 12/22/24 09:02 Amiodarone 100 Mg Tab PO 100 mg BID [facility] Administration Apixaban 2.5 mg 12/21/24 21:00 12/22/24 09:02 Apixaban 2.5 Mg Tablet PO 2.5 mg BID [facility] Administration Protocol Aspirin 81 mg 12/22/24 13:00 Aspirin 81 Mg PO DAILY [facility] Atorvastatin Calcium 40 mg 12/22/24 13:00 Atorvastatin 40 Mg Tab PO DAILY [facility] Baclofen 10 mg 12/21/24 19:13 Baclofen 10 Mg Tab PO TID PRN Pain Donepezil HCl 10 mg 12/21/24 21:00 12/21/24 20:31 Donepezil 10 Mg Tab PO 10 mg HS [facility] Administration Famotidine 20 mg 12/21/24 21:00 12/21/24 20:31 Famotidine 20 Mg Tab PO 20 mg HS [facility] Administration Furosemide 40 mg 12/22/24 13:00 Furosemide 10 Mg/Ml 4 Ml Vial IV Q12HR [facility] Ceftriaxone Sodium 2 gm/ 50 mls @ 100 mls/hr 12/22/24 16:00 Sodium Chloride IVPB Q24H [facility] Protocol Levothyroxine Sodium 50 mcg 12/22/24 06:30 12/22/24 05:51 Levothyroxine 50 Mcg Tab PO 50 mcg DAILY@0630 [facility] Administration Metoprolol Tartrate 25 mg 12/21/24 21:00 12/22/24 09:02 Metoprolol Tartrate 25 Mg Tab PO 25 mg BID [facility] Administration Naloxone HCl 0.2 mg 12/21/24 19:11 Naloxone 0.4 Mg/Ml 1 Ml Vial IV Q2M PRN Opioid Reversal Nitroglycerin 0.4 mg 12/21/24 19:13 Nitroglycerin Sl Tabs 0.4 Mg Tab SUBLINGUAL Q5M PRN Chest Pain Ondansetron HCl 4 mg 12/21/24 19:11 Ondansetron 4 Mg/2 Ml Vial IVP Q8HR PRN Nausea And Vomiting Oxybutynin Chloride 5 mg 12/21/24 21:00 12/22/24 09:02 Oxybutynin Chloride 5 Mg Tab PO 5 mg BID [facility] Administration Potassium Chloride 10 meq 12/22/24 09:00 12/22/24 09:02 Potassium Chloride Er 10 Meq Tab.Er.Prt PO 10 meq DAILY [facility] Administration Intake and Output 12/21/24 12/22/24 12/22/24 22:59 06:59 14:59 Intake Total 240 Balance 240 Intake: Oral 240 Other: Voiding Method Toilet # Voids 1 4 Weight 83.915 kg 12/21/24 16:38 12/21/24 16:38
[2024-12-22] MEDS: FUROSEMIDE 10 MG/ML 4 ML VIAL IV SCH (14:05)
[2024-12-22] MEDS: ASPIRIN 81 MG PO SCH (14:05)
[2024-12-22] MEDS: ATORVASTATIN 40 MG TAB PO SCH (14:05)
--- NOTE | 2024-12-22 15:20 | P.HPIM ---
History of Present Illness H&P Date: 12/22/24 History of present illness; patient is a 79-year-old gentleman past medical history significant for hypertension, DVT, CVA who presented the ER because of lower extremity swelling. Patient stated that he has been noticing that his lower extremities were getting swollen for the last week. Patient was complaining of shortness of breath on exertion. Patient also noticed his legs were red mostly in the right, blister also formed. There is no complaint of chest pain. patient denies any palpitation. There is no complaint of orthopnea or PND. Denies any nausea, vomiting abdominal pain. Patient denies any complaint of dizziness. There is no complaint of headache. Because of the symptoms, patient came to the ER Initial lab work done in the ER showed WBC 8.44, hemoglobin 13.9, platelet count 167, sodium 141, potassium 3.2, BUN 26, creatinine 1.41, glucose 88, calcium 9, bilirubin 2.5 AST 27, ALT 17, troponin 0.012 proBNP 380 EKG done in the ER showed heart rate of 60, irregular, no ST segment elevation or depression seen, no T-wave inversions seen. Chest x-ray done in the ER showed no acute cardiopulmonary process Duplex ultrasound lower extremity done negative for DVT Patient admitted to internal medicine service REVIEW OF SYSTEMS: CONSTITUTIONAL: No fever, no malaise, no fatigue. HEENT: No recent visual problems or hearing problems. Denied any sore throat. CARDIOVASCULAR: No chest pain, orthopnea, PND, no palpitations, no syncope. PULMONARY: No shortness of breath, no cough, no hemoptysis. GASTROINTESTINAL: No diarrhea, no nausea, no vomiting, no abdominal pain. NEUROLOGICAL: No headaches, no weakness, no numbness. HEMATOLOGICAL: Denies any bleeding or petechiae. GENITOURINARY: Denies any burning micturition, frequency, or urgency. MUSCULOSKELETAL/RHEUMATOLOGICAL: Denies any joint pain, swelling, or any muscle pain. ENDOCRINE: Denies any polyuria or polydipsia. The rest of the 14-point review of systems is negative. PHYSICAL EXAMINATION: GENERAL: The patient is alert and oriented x3, not in any acute distress. Well developed, well nourished. HEENT: Pupils are round and equally reacting to light. EOMI. No scleral icterus. No conjunctival pallor. Normocephalic, atraumatic. No pharyngeal erythema. No thyromegaly. CARDIOVASCULAR: S1 and S2 present. No murmurs, rubs, or gallops. PULMONARY: Chest is clear to auscultation, no wheezing or crackles. ABDOMEN: Soft, nontender, nondistended, normoactive bowel sounds. No palpable organomegaly. MUSCULOSKELETAL: No joint swelling or deformity. EXTREMITIES: 2+ pitting edema lower extremity, chronic venous changes of lower extremities, right lower extremity erythema also present NEUROLOGICAL: Gross neurological examination did not reveal any focal deficits. SKIN: No rashes. Assessment and plan Right lower extremity celulitis Chronic systolic heart failure Persistent atrial flutter Coronary artery disease with previous CABG 3 vessels, 2014 Hypertension Hyperlipidemia History of syncope Monitor vital signs Monitor CBC Monitor CMP Continue telemetry monitoring Strict I's and O's, daily weights Continue IV Lasix Resume Eliquis, amiodarone Start IV Rocephin Consult ID Consult cardiology Labs and medication were reviewed.. Continue same treatment. Continue with symptomatic treatment. Resume home medication. Monitor labs and vitals. DVT and GI prophylaxis. Further recommendations as per clinical course of the patient Dictation was produced using [employer] dictation software. please excuse any grammatical, word or spelling errors. Past Medical History Past Medical History: Chest Pain / Angina, CVA/TIA, Deep Vein Thrombosis (DVT), Hypertension, Sleep Apnea/CPAP/BIPAP Additional Past Medical History / Comment(s): "Forgetful, gets distracted easily." Hx CVA no residual effects, date unknown. No CPAP use. Hx sinusitis, sinus headaches, nasal fracture as a young man, sleep disturbance. Hx DVT many yrs ago. History of Any Multi-Drug Resistant Organisms: None Reported Past Surgical History: Adenoidectomy, Coronary Bypass/CABG, Tonsillectomy Additional Past Surgical History / Comment(s): Unknown date and how many vessels with CABG. Past Anesthesia/Blood Transfusion Reactions: No Reported Reaction Past Psychological History: No Psychological Hx Reported Additional Psychological History / Comment(s): . Smoking Status: Never smoker Past Alcohol Use History: Occasional Past Drug Use History: None Reported - Past Family History Father Family Medical History: Coronary Artery Disease (CAD), Myocardial Infarction ([place]) Additional Family Medical History / Comment(s): Father of a [place] at 47 yrs of age. Mother Family Medical History: Cancer Additional Family Medical History / Comment(s): Mother of lung cancer at age 71yrs. Medications and Allergies Home Medications Medication Instructions Recorded Confirmed Type oxyBUTYnin chloride [Ditropan] 5 mg PO BID 03/15/23 12/21/24 History Potassium Chloride ER [K-Dur 10] 10 meq PO DAILY 06/15/23 12/21/24 History Metoprolol Tartrate [Lopressor] 25 mg PO BID #60 tab 06/22/23 12/21/24 Rx Nitroglycerin Sl Tabs [Nitrostat] 0.4 mg SUBLINGUAL Q5M PRN #100 tab 06/22/23 12/21/24 Rx Amiodarone [Cordarone] 100 mg PO BID 12/21/24 12/21/24 History Apixaban [Eliquis] 2.5 mg PO BID 12/21/24 12/21/24 History Baclofen [Lioresal] 10 mg PO TID PRN 12/21/24 12/21/24 History Bumetanide [BUMEX] 2 mg PO DAILY 12/21/24 12/21/24 History Levothyroxine Sodium [Synthroid] 50 mcg PO DAILY 12/21/24 12/21/24 History Rivastigmine Tartrate 6 mg PO BID 12/21/24 12/21/24 History [Rivastigmine] Allergies Allergy/AdvReac Type Severity Reaction Status Date / Time No Known Allergies Allergy Verified 12/21/24 17:58 Physical Exam Vitals: Vital Signs Temp Pulse Pulse Resp BP BP Pulse Ox 12/22/24 07:25 97.6 F 46 L 15 99/62 97 12/22/24 02:11 61 18 12/22/24 00:04 97.7 F 61 18 113/60 99 12/21/24 22:21 97.7 F 60 18 120/67 100 12/21/24 21:53 55 L 18 106/74 99 12/21/24 19:40 60 18 101/76 12/21/24 18:32 66 18 108/64 100 12/21/24 15:47 97.6 F 58 L 16 120/72 99 Intake and Output 12/21/24 12/22/24 12/22/24 22:59 06:59 14:59 Intake Total 240 Balance 240 Intake: Oral 240 Other: Voiding Method Toilet # Voids 1 4 Weight 83.915 kg Results CBC & Chem 7: 12/21/24 16:38 12/21/24 16:38 Labs: Abnormal Lab Results - Last 24 Hours (Table) 12/21/24 12/21/24 Range/Units 16:38 16:38 RBC 3.90 L (4.40-5.60) 10*6/uL MCV 101.8 H (80.0-97.0) fL MCH 35.6 H (27.0-32.0) pg MPV 9.3 L (9.5-12.2) fL Potassium 3.2 L (3.5-5.1) mmol/L Carbon Dioxide 32 H (22-30) mmol/L BUN 26 H (9-20) mg/dL Creatinine 1.41 H (0.66-1.25) mg/dL Total Bilirubin 2.5 H (0.2-1.3) mg/dL Thrombosis Risk Factor Assmnt - Choose All That Apply Any of the Below Risk Factors Present?: Yes Each Factor Represents 1 point: Obesity (BMI >25) Other Risk Factors: Yes Each Risk Factor Represents 3 Points: Age 75 years or older Other congenital or acquired thrombophilia - If yes, enter type in comment: No Thrombosis Risk Factor Assessment Total Risk Factor Score: 4 Thrombosis Risk Factor Assessment Level: Moderate Risk
--- NOTE | 2024-12-22 22:50 | P.CONS ---
History of Present Illness - Reason for Consult Consult date: 12/22/24 Cellulitis Requesting physician: Shubham Costa - Chief Complaint Increasing swelling to bilateral extremity x days - History of Present Illness Patient is a 79-year-old male with a past medical history significant for Chest Pain / Angina, CVA/TIA, Deep Vein Thrombosis (DVT), Hypertension, Sleep Apnea/CPAP/BIPAP, presenting to the hospital for evaluation of bilateral lower extremity swelling especially to the left lower extremity in this patient has also developed redness in the areas of blister patient did have mild leaking pain and denies having any drainage. Denies having any chest pain shortness of breath or cough no nausea vomiting no abdominal pain or diarrhea and denies high-grade fever on presentation to the hospital patient was afebrile no fever Hemoccult subsequently patient was not tachycardic hypotensive or hypoxic patient did have active 8.44, BUN and creatinine has been mildly elevated liver enzymes are normal except bilirubin of 2.5 NT proBNP was 380 patient did have a chest x-ray no acute cardiopulmonary disease process he did have a venous Doppler negative for DVT patient has been admitted to the hospital he was started on ceftriaxone infectious he was consulted for further management of antibiotic therapy Review of Systems Positive point and negatives has been mentioned in the HPI, complete review of systems was performed and all other systems are negative Past Medical History Past Medical History: Chest Pain / Angina, CVA/TIA, Deep Vein Thrombosis (DVT), Hypertension, Sleep Apnea/CPAP/BIPAP Additional Past Medical History / Comment(s): "Forgetful, gets distracted easily." Hx CVA no residual effects, date unknown. No CPAP use. Hx sinusitis, sinus headaches, nasal fracture as a young man, sleep disturbance. Hx DVT many yrs ago. History of Any Multi-Drug Resistant Organisms: None Reported Past Surgical History: Adenoidectomy, Coronary Bypass/CABG, Tonsillectomy Additional Past Surgical History / Comment(s): Unknown date and how many vessels with CABG. Past Anesthesia/Blood Transfusion Reactions: No Reported Reaction Past Psychological History: No Psychological Hx Reported Additional Psychological History / Comment(s): . Smoking Status: Never smoker Past Alcohol Use History: Occasional Past Drug Use History: None Reported - Past Family History Father Family Medical History: Coronary Artery Disease (CAD), Myocardial Infarction ([place]) Additional Family Medical History / Comment(s): Father of a [place] at 47 yrs of age. Mother Family Medical History: Cancer Additional Family Medical History / Comment(s): Mother of lung cancer at age 71yrs. Medications and Allergies Home Medications Medication Instructions Recorded Confirmed Type oxyBUTYnin chloride [Ditropan] 5 mg PO BID 03/15/23 12/21/24 History Potassium Chloride ER [K-Dur 10] 10 meq PO DAILY 06/15/23 12/21/24 History Nitroglycerin Sl Tabs [Nitrostat] 0.4 mg SUBLINGUAL Q5M PRN #100 tab 06/22/23 12/21/24 Rx Apixaban [Eliquis] 2.5 mg PO BID 12/21/24 12/21/24 History Baclofen [Lioresal] 10 mg PO TID PRN 12/21/24 12/21/24 History Bumetanide [BUMEX] 2 mg PO DAILY 12/21/24 12/21/24 History Levothyroxine Sodium [Synthroid] 50 mcg PO DAILY 12/21/24 12/21/24 History Rivastigmine Tartrate 6 mg PO BID 12/21/24 12/21/24 History [Rivastigmine] Amiodarone [Cordarone] 100 mg PO DAILY 30 Days #30 tab 12/23/24 Rx Aspirin 81 mg PO DAILY 30 Days #30 tab 12/23/24 Rx Atorvastatin [Lipitor] 40 mg PO DAILY 30 Days #30 tab 12/23/24 Rx Cephalexin [Keflex] 500 mg PO Q8HR 5 Days #15 cap 12/23/24 Rx Metoprolol Succinate (ER) [Toprol 25 mg PO DAILY 30 Days #30 tab 12/23/24 Rx XL] Allergies Allergy/AdvReac Type Severity Reaction Status Date / Time No Known Allergies Allergy Verified 12/24/24 14:59 Physical Exam Vitals: Vital Signs Temp Pulse Pulse Resp BP BP BP 12/22/24 13:35 97.5 F L 56 L 17 132/74 12/22/24 07:25 97.6 F 46 L 15 99/62 12/22/24 02:11 61 18 12/22/24 00:04 97.7 F 61 18 113/60 12/21/24 22:21 97.7 F 60 18 120/67 12/21/24 21:53 55 L 18 106/74 12/21/24 19:40 60 18 101/76 12/21/24 18:32 66 18 108/64 Pulse Ox 12/22/24 13:35 99 12/22/24 07:25 97 12/22/24 02:11 12/22/24 00:04 99 12/21/24 22:21 100 12/21/24 21:53 99 12/21/24 19:40 12/21/24 18:32 100 Intake and Output 12/22/24 12/22/24 12/22/24 06:59 14:59 22:59 Intake Total 480 Balance 480 Intake: Oral 480 Other: Voiding Method Toilet # Voids 4 2 GENERAL DESCRIPTION: Elderly male up in his chair, no distress. No tachypnea or accessory muscle of respiration use. HEENT: Shows Pallor , no scleral icterus. Oral mucous membrane is dry. No pharyngeal erythema or thrush NECK: Trachea central, no thyromegaly. LUNGS: Unlabored breathing. Decreased breath sound at the base HEART: S1, S2, regular rate and rhythm. No loud murmur ABDOMEN: Soft, no tenderness , guarding or rigidity, no organomegaly EXTREMITIES: Diffuse minimal lower extremity specially left leg with erythema slightly warm to touch SKIN: No rash, no masses palpable. NEUROLOGICAL: The patient is awake, alert, oriented x3, mood and affect normal. Results CBC & Chem 7: 12/21/24 16:38 12/23/24 05:19 Labs: Abnormal Lab Results - Last 24 Hours (Table) 12/21/24 12/21/24 Range/Units 16:38 16:38 RBC 3.90 L (4.40-5.60) 10*6/uL MCV 101.8 H (80.0-97.0) fL MCH 35.6 H (27.0-32.0) pg MPV 9.3 L (9.5-12.2) fL Potassium 3.2 L (3.5-5.1) mmol/L Carbon Dioxide 32 H (22-30) mmol/L BUN 26 H (9-20) mg/dL Creatinine 1.41 H (0.66-1.25) mg/dL Total Bilirubin 2.5 H (0.2-1.3) mg/dL Assessment and Plan (1) Bilateral lower leg cellulitis Status: Acute Code(s): L03.116 - CELLULITIS OF LEFT LOWER LIMB; L03.115 - CELLULITIS OF RIGHT LOWER LIMB SNOMED Code(s): 128139947 Plan: 1patient presented to the hospital because of swelling lower extremity with d iffuse erythema especially to the left leg and this patient did have diffuse swelling and redness likely streptococcal cellulitis 2-nursing staff has been advised to ramonita the redness and apply Dmitriy wrap from just above the toe to below the knee 3-discontinue Rocephin 4-will start the patient cefazolin 2 g every 8 hours We will follow on clinical condition and cultures to further adjust medication i f needed Thank you for this consultation we will follow the patient along with you Dictation was produced using [employer] dictation software. please excuse any grammatical, word or spelling errors. Time with Patient: Greater than 30
[2024-12-23 00:11] LABS: Cholesterol 120.00 mg/dL (0.00-200.00); HDL Cholesterol 53.60 mg/dL (40.00-60.00); LDL Cholesterol,Calculated 48.7 mg/dL (0.0-131.0); Triglycerides 88.70 mg/dL (0.00-149.00); VLDL Calculation 17.74 mg/dL (5.00-40.00)
[2024-12-23 06:15] LABS: African American GFR (CKD) 64 (>60 ml/min/1.73 sqM); Anion Gap 12 mmol/L; Blood Urea Nitrogen 30 mg/dL (9-20); Calcium 9.3 mg/dL (8.4-10.2); Carbon Dioxide 31 mmol/L (22-30); Chloride 98 mmol/L (98-107); Glucose 100 mg/dL (74-99); Magnesium 2.2 mg/dL (1.6-2.3); Non-African American GFR(CKD) 55 (>60 ml/min/1.73 sqM); Potassium 3.6 mmol/L (3.5-5.1); Sodium 141 mmol/L (137-145)
[2024-12-23 07:59] VITALS: BP 115/74; PULSE 77; RESP 16; TEMP 97.5
[2024-12-23] MEDS: AMIODARONE 100 MG TAB PO SCH (09:38)
[2024-12-23] MEDS: METOPROLOL SUCCINATE (ER) 25 MG TAB.ER.24H PO SCH (09:38)
--- NOTE | 2024-12-23 12:36 | P.DS ---
Providers Date of admission: 12/21/24 19:13 Expected date of discharge: 12/23/24 Attending physician: Elvia Isidro Consults: 12/21/24 19:11 Consult Physician Urgent Consulting Provider: [facility] Consult Reason/Comments: LE edema, poss new onset afib Do you want consulting provider notified?: Yes, Notify in am 12/22/24 12:46 Consult Physician Routine Consulting Provider: Yvonne Saravia Consult Reason/Comments: Cellulitis Do you want consulting provider notified?: Yes Primary care physician: Stated None Hospital Course: Discharge diagnoses; Right lower extremity celulitis Acute on chronic systolic heart failure Persistent atrial flutter Coronary artery disease with previous CABG 3 vessels, 2014 Hypertension Hyperlipidemia History of syncope Hospital course; 79-year-old gentleman past medical history significant for hypertension, DVT, CVA who presented the ER because of lower extremity swelling. Patient stated that he has been noticing that his lower extremities were getting swollen for the last week. Patient was complaining of shortness of breath on exertion. Patient also noticed his legs were red mostly in the right, blister also formed. There is no complaint of chest pain. patient denies any palpitation. There is no complaint of orthopnea or PND. Denies any nausea, vomiting abdominal pain. Patient denies any complaint of dizziness. There is no complaint of headache. Because of the symptoms, patient came to the ER Initial lab work done in the ER showed WBC 8.44, hemoglobin 13.9, platelet count 167, sodium 141, potassium 3.2, BUN 26, creatinine 1.41, glucose 88, calcium 9, bilirubin 2.5 AST 27, ALT 17, troponin 0.012 proBNP 380 EKG done in the ER showed heart rate of 60, irregular, no ST segment elevation or depression seen, no T-wave inversions seen. Chest x-ray done in the ER showed no acute cardiopulmonary process Duplex ultrasound lower extremity done negative for DVT Patient admitted to internal medicine service. Patient was evaluated by cardiology and by ID. Patient was switched to IV Lasix in the hospital. In the hospital, patient continued to improve. Patient was seen by ID, they changed antibiotics to oral Keflex at discharge. Patient to follow-up outpatient with PCP and cardiology PHYSICAL EXAMINATION: GENERAL: The patient is alert and oriented x3, not in any acute distress. Well developed, well nourished. HEENT: Pupils are round and equally reacting to light. EOMI. No scleral icterus. No conjunctival pallor. Normocephalic, atraumatic. No pharyngeal erythema. No thyromegaly. CARDIOVASCULAR: S1 and S2 present. No murmurs, rubs, or gallops. PULMONARY: Chest is clear to auscultation, no wheezing or crackles. ABDOMEN: Soft, nontender, nondistended, normoactive bowel sounds. No palpable organomegaly. MUSCULOSKELETAL: No joint swelling or deformity. EXTREMITIES: No cyanosis, clubbing, right lower extremity erythema has improved NEUROLOGICAL: Gross neurological examination did not reveal any focal deficits. SKIN: No rashes. Dictation was produced using [email or web address] dictation software. please excuse any grammatical, word or spelling errors. Patient Condition at Discharge: Stable Plan - Discharge Summary Discharge Rx Participant: No New Discharge Prescriptions: New Atorvastatin [Lipitor] 40 mg PO DAILY 30 Days #30 tab Aspirin 81 mg PO DAILY 30 Days #30 tab Amiodarone [Cordarone] 100 mg PO DAILY 30 Days #30 tab Cephalexin [Keflex] 500 mg PO Q8HR 5 Days #15 cap Metoprolol Succinate (ER) [Toprol XL] 25 mg PO DAILY 30 Days #30 tab Continue oxyBUTYnin chloride [Ditropan] 5 mg PO BID Potassium Chloride ER [K-Dur 10] 10 meq PO DAILY Nitroglycerin Sl Tabs [Nitrostat] 0.4 mg SUBLINGUAL Q5M PRN #100 tab PRN Reason: Chest Pain Rivastigmine Tartrate [Rivastigmine] 6 mg PO BID Bumetanide [BUMEX] 2 mg PO DAILY Baclofen [Lioresal] 10 mg PO TID PRN PRN Reason: Pain Apixaban [Eliquis] 2.5 mg PO BID Levothyroxine Sodium [Synthroid] 50 mcg PO DAILY Discontinued Amiodarone [Cordarone] 100 mg PO BID Metoprolol Tartrate [Lopressor] 25 mg PO BID #60 tab Discharge Medication List oxyBUTYnin chloride [Ditropan] 5 mg PO BID 03/15/23 [History] Potassium Chloride ER [K-Dur 10] 10 meq PO DAILY 06/15/23 [History] Nitroglycerin Sl Tabs [Nitrostat] 0.4 mg SUBLINGUAL Q5M PRN #100 tab 06/22/23 [Rx] Apixaban [Eliquis] 2.5 mg PO BID 12/21/24 [History] Baclofen [Lioresal] 10 mg PO TID PRN 12/21/24 [History] Bumetanide [BUMEX] 2 mg PO DAILY 12/21/24 [History] Levothyroxine Sodium [Synthroid] 50 mcg PO DAILY 12/21/24 [History] Rivastigmine Tartrate [Rivastigmine] 6 mg PO BID 12/21/24 [History] Amiodarone [Cordarone] 100 mg PO DAILY 30 Days #30 tab 12/23/24 [Rx] Aspirin 81 mg PO DAILY 30 Days #30 tab 12/23/24 [Rx] Atorvastatin [Lipitor] 40 mg PO DAILY 30 Days #30 tab 12/23/24 [Rx] Cephalexin [Keflex] 500 mg PO Q8HR 5 Days #15 cap 12/23/24 [Rx] Metoprolol Succinate (ER) [Toprol XL] 25 mg PO DAILY 30 Days #30 tab 12/23/24 [Rx] Follow up Appointment(s)/Referral(s): None,Stated [Primary Care Provider] - 1-2 days Iraj Sánchez MD [Medical Doctor] - 1 Week Discharge Disposition: HOME SELF-CARE
--- NOTE | 2024-12-23 13:15 | CA ---
Transthoracic Echo Report Name: Hugh Cortés Age: 79 Gender: M : 1945 Exam Date: 12/23/2024 09:40 Exam Location: [facility] Ht (in): 70 Wt (lb): 185 Ordering Physician: Laura Owen MD Attending/Referring Phys: Speech Pathology Teacher Atiya Wilson RDCS Procedure CPT: Indications: bilat LE swelling Cardiac Hx: Technical Quality: Fair Contrast 1: Definity Total Dose (mL): 2 Contrast 2: Total Dose (mL): MEASUREMENTS (Male / Female) Normal Values 2D ECHO LV Diastolic Diameter PLAX 4.8 cm 4.2 - 5.9 / 3.9 - 5.3 cm LV Systolic Diameter PLAX 3.1 cm IVS Diastolic Thickness 1.3 cm 0.6 - 1.0 / 0.6 - 0.9 cm LVPW Diastolic Thickness 1.1 cm 0.6 - 1.0 / 0.6 - 0.9 cm LV Relative Wall Thickness 0.5 RV Internal Dim ED PLAX 2.6 cm LVOT Diameter 2.2 cm LA Systolic Diameter LX 4.4 cm 3.0 - 4.0 / 2.7 - 3.8 cm M-MODE Aortic Root Diameter MM 3.6 cm LA Systolic Diameter MM 4.3 cm LA Ao Ratio MM 1.2 AV Cusp Separation MM 1.3 cm DOPPLER AV Peak Velocity 158.1 cm/s AV Peak Gradient 10.0 mmHg AV Mean Velocity 122.1 cm/s AV Mean Gradient 6.4 mmHg AV Velocity Time Integral 40.6 cm AI Peak Velocity 344.5 cm/s AI Peak Gradient 47.5 mmHg AI Pressure Half Time 1003.0 ms LVOT Peak Velocity 105.8 cm/s LVOT Peak Gradient 4.5 mmHg LVOT Velocity Time Integral 26.3 cm LVOT Stroke Volume 97.5 cm??? LVOT Stroke Volume Index 48.3 ml/m??? LVOT Cardiac Index 3141.8 cm???/min???m??? AV Area Cont Eq vti 2.4 cm??? AV Area Cont Eq pk 2.5 cm??? MV Peak Velocity 138.2 cm/s MV Peak Gradient 7.6 mmHg MV Mean Velocity 73.3 cm/s MV Mean Gradient 2.7 mmHg MV Velocity Time Integral 50.4 cm Mitral E Point Velocity 96.6 cm/s Mitral A Point Velocity 107.9 cm/s Mitral E to A Ratio 0.9 MV Deceleration Time 329.8 ms MV E' Velocity 6.9 cm/s Mitral E to MV E' Ratio 14.1 TR Peak Velocity 228.9 cm/s TR Peak Gradient 21.0 mmHg Right Ventricular Systolic Press 31.2 mmHg FINDINGS Left Ventricle Left ventricular ejection fraction is estimated at 55-60%. Mildly increased septal wall thickness. Normal left ventricular systolic function with no obvious regional wall motion abnormalities. Left ventricular cavity size normal. Right Ventricle Normal right ventricular size and function. Right ventricular systolic pressure within normal limits. Right Atrium Mild right atrial dilatation. Left Atrium Mildly increased left atrial diameter. Mitral Valve Mitral valve thickened. Mitral annular calcification. Trace to mild mitral regurgitation. Aortic Valve Trileaflet aortic valve. Diffuse thickening (sclerosis) of the aortic valve cusps without reduced excursion. Mild aortic regurgitation. Tricuspid Valve Structurally normal tricuspid valve. Mild tricuspid regurgitation. No tricuspid stenosis. Pulmonic Valve Structurally normal pulmonic valve. No pulmonic stenosis. Trace pulmonic regurgitation. Pericardium No pericardial or pleural effusion. Aorta Aorta at upper limits of normal. CONCLUSIONS Technically difficult study for interpretation Normal LV systolic function Poorly visualized intracardiac valves Previewed by: Dr. Deni Schumacher MD (Electronically Signed) Final Date: 23 December 2024 13:14
--- NOTE | 2024-12-23 13:30 | P.PN ---
Subjective HISTORY OF PRESENT ILLNESS: 79-year-old male presented to the hospital because of increased worsening lower extremity edema along with redness erythema on bilateral judge. He is admitted with working diagnosis of CHF exacerbation and cellulitis. Cardiology is consulted for CHF management he does have prior history of atrial fibrillation CABG and CAD. Poor historian, not sure who is his pitch gatherer ........................................... ................................................................................ ................... Pertient Vitals: BP 120/67, heart rate 60 bpm Pertient Labs: Hb 13.9, BUN 26, creatinine 1.4, troponin is not elevated, NT- proBNP 380 EKG: Atrial fibrillation heart rate 60 bpm, left axis deviation Pertient Imaging: No significant congestion or consolidation suggestive of fluid overload pneumonia .. ................................................................................ ............................................................ Prior cardiac testing: Echo from 03/2023 shows an EF of 40 to 45% mild concentric LVH, mild MR mild AI RVSP 21 12/23/2024 Patient examined this morning the bedside. Patient currently denies any chest pain or pressure. He denies shortness of breath. He is very anxious to be discharged home today. PHYSICAL EXAM: VITAL SIGNS: Reviewed. GENERAL: Well-developed in no acute distress. NECK: Supple. No JVD or thyromegaly LUNGS: Respirations even and unlabored. Lungs essentially clear to auscultation bilaterally. HEART: Irregular rate and rhythm. S1 and S2 heard. EXTREMITIES: Normal range of motion. No clubbing or cyanosis. Peripheral pulses intact. Bilateral lower extremity edema with evidence of cellulitis ASSESSMENT: Acute on chronic heart failure with reduced EF 40 to 45% Ischemic cardiomyopathy Coronary artery disease with previous CABG Persistent atrial fibrillation Bilateral lower extremity cellulitis PLAN: Continue current cardiac medications Patient extremely anxious to be discharged home today. If patient stays overnight continue IV Lasix for lower extremity swelling. If he is discharged today then resume home dose of Bumex Further recommendations pending patient course Nurse practitioner note has been reviewed by physician. Signing provider agrees with the documented findings, assessment, and plan of care documented by MANAGER [employer] as a scribe. Objective - Vital Signs Vital signs: Vital Signs Temp 97.5 F L 12/23/24 07:00 Pulse 77 12/23/24 07:00 Resp 16 12/23/24 07:00 BP 115/74 12/23/24 07:00 Pulse Ox 99 12/23/24 07:00 FiO2 Intake & Output 12/22/24 12/23/24 12/23/24 18:59 06:59 18:59 Intake Total 480 Output Total 450 Balance 480 -450 Intake: Oral 480 Output: Urine 450 Other: Voiding Method Toilet # Voids 2 2 # Bowel Movements 1 - Labs CBC & Chem 7: 12/21/24 16:38 12/23/24 05:19 Labs: Abnormal Lab Results - Last 24 Hours (Table) 12/22/24 12/23/24 Range/Units 13:15 05:19 Carbon Dioxide 31 H (22-30) mmol/L BUN 30 H (9-20) mg/dL Glucose 100 H (74-99) mg/dL TSH 7.850 H (0.350-5.500) UIU/ML
--- NOTE | 2024-12-26 09:21 | P.PN ---
Subjective Progress Note Date: 12/23/24 Principal diagnosis: Reason for follow-up is bilateral leg cellulitis Patient is a 79-year-old male with a past medical history significant for Chest Pain / Angina, CVA/TIA, Deep Vein Thrombosis (DVT), Hypertension, Sleep Apnea/CPAP/BIPAP, presenting to the hospital for evaluation of bilateral lower extremity swelling especially to the left lower extremity patient has been diagnosed with cellulitis probably this consultation. On today's evaluation that is 12/23/2024, patient has been afebrile, patient is breathing comfortably and is currently on room air, patient denies having any chest pain and cough, patient denies nausea vomiting or diarrhea and no abdominal pain patient mention decreasing pain to lower extremity feeling better wants to go home. Patient did have a creatinine 1.23 no CBC was done today blood cultures currently pending Objective - Vital Signs Vital signs: Vital Signs Temp 97.5 F L 12/23/24 07:00 Pulse 77 12/23/24 07:00 Resp 16 12/23/24 07:00 BP 115/74 12/23/24 07:00 Pulse Ox 99 12/23/24 07:00 FiO2 Intake & Output 12/22/24 12/23/24 12/23/24 18:59 06:59 18:59 Intake Total 480 Output Total 450 Balance 480 -450 Intake: Oral 480 Output: Urine 450 Other: Voiding Method Toilet # Voids 2 2 # Bowel Movements 1 - Exam GENERAL DESCRIPTION: An elderly male up in the chair in no distress RESPIRATORY SYSTEM: Unlabored breathing , decreased breath sounds at bases HEART: S1 S2 regular rate and rhythm , ABDOMEN: Soft , no tenderness EXTREMITIES: Bilateral leg swelling and redness slightly decreased - Labs CBC & Chem 7: 12/21/24 16:38 12/23/24 05:19 Labs: Abnormal Lab Results - Last 24 Hours (Table) 12/22/24 12/23/24 Range/Units 13:15 05:19 Carbon Dioxide 31 H (22-30) mmol/L BUN 30 H (9-20) mg/dL Glucose 100 H (74-99) mg/dL TSH 7.850 H (0.350-5.500) UIU/ML Assessment and Plan (1) Bilateral lower leg cellulitis Status: Acute Code(s): L03.116 - CELLULITIS OF LEFT LOWER LIMB; L03.115 - CELLULITIS OF RIGHT LOWER LIMB SNOMED Code(s): 924430091 Plan: 1patient presented to the hospital because of swelling lower extremity with diffuse erythema especially to the left leg and this patient did have diffuse swelling and redness likely streptococcal cellulitis 2-patient did have some improvement of the leg swelling and redness he is afebrile white count is normal insisting on going home we will consider 7-day course of oral Keflex on discharge discussed with the admitting physician working on discharge Dictation was produced using [employer] dictation software. please excuse any grammatical, word or spelling errors. Time with Patient: Less than 30
== END 2024-12-23 14:54 | disposition home or self-care (01) ==
LOC: EC 15:46 → 6NMEDSUR 19:13
PROVIDERS: ADMIT Internal Medicine; ATTEND Internal Medicine
DX: L03.115 Cellulitis of right lower limb (principal); L03.116 Cellulitis of left lower limb; E87.6 Hypokalemia; I11.0 Hypertensive heart disease with heart failure; I50.23 Acute on chronic systolic (congestive) heart failure; I25.10 Atherosclerotic heart disease of native coronary artery without angina pectoris; I25.5 Ischemic cardiomyopathy; I48.19 Other persistent atrial fibrillation; I48.92 Unspecified atrial flutter; E78.5 Hyperlipidemia, unspecified; G47.30 Sleep apnea, unspecified; Z79.01 Long term (current) use of anticoagulants; Z79.82 Long term (current) use of aspirin; Z79.890 Hormone replacement therapy; Z79.899 Other long term (current) drug therapy; Z86.718 Personal history of other venous thrombosis and embolism; Z86.73 Personal history of transient ischemic attack (TIA), and cerebral infarction without residual deficits; Z95.1 Presence of aortocoronary bypass graft
CPT/HCPCS: 96376 ×2; 96366 ×2; 96367; 96375 ×2; 96365; 99285; 36415; 93005; 93306; 83880; 80061; 80053; 80048; 83735 ×2; 84443; 84484; 85025; 85610; 85730; 87040; 83036; 71046; 93970; G0378 ×3; J0690 ×2; J0696 ×2; Q9957; J1939; J1938 ×2

== ENCOUNTER 2024-12-24 14:36 | Emergency (ER) | payer MEDICARE ==
[2024-12-24 14:59] VITALS: RESP 18
--- NOTE | 2024-12-24 14:59 | ED ---
Fall HPI - General Stated Complaint: Code coag Time Seen by Provider: 12/24/24 14:46 Source: patient, RN notes reviewed, old records reviewed Mode of arrival: EMS Limitations: physical limitation - History of Present Illness Initial Comments: 79-year-old male presented to ER via EMS for evaluation of fall. Patient reports he was at a local liquor store buying [employer] tickets and believes he may have passed out. He does not recall feeling dizzy, lightheaded or experiencing chest pain or shortness of breath prior to fall. Patient is on Eliquis for atrial fibrillation. Admits to loss of consciousness. Patient is reporting current 2 out of 3 pain to his head. There is a laceration noted. Tetanus status unknown. Patient states he did vomit after incident. He denies any neck pain or paresthesias to bilateral upper extremities. He denies any pain to upper or lower extremities. Patient received 4 mg Zofran by EMS. Patient denies any recent fevers, cough, congestion, chest pain, shortness of breath, abdominal pain, diarrhea, urinary complaints. - Related Data Home Medications Medication Instructions Recorded Confirmed oxyBUTYnin chloride [Ditropan] 5 mg PO BID 03/15/23 12/21/24 Potassium Chloride ER [K-Dur 10] 10 meq PO DAILY 06/15/23 12/21/24 Apixaban [Eliquis] 2.5 mg PO BID 12/21/24 12/21/24 Baclofen [Lioresal] 10 mg PO TID PRN 12/21/24 12/21/24 Bumetanide [BUMEX] 2 mg PO DAILY 12/21/24 12/21/24 Levothyroxine Sodium [Synthroid] 50 mcg PO DAILY 12/21/24 12/21/24 Rivastigmine Tartrate 6 mg PO BID 12/21/24 12/21/24 [Rivastigmine] Previous Rx's Medication Instructions Recorded Nitroglycerin Sl Tabs [Nitrostat] 0.4 mg SUBLINGUAL Q5M PRN #100 tab 06/22/23 Amiodarone [Cordarone] 100 mg PO DAILY 30 Days #30 tab 12/23/24 Aspirin 81 mg PO DAILY 30 Days #30 tab 12/23/24 Atorvastatin [Lipitor] 40 mg PO DAILY 30 Days #30 tab 07/14/25 Cephalexin [Keflex] 500 mg PO Q8HR 5 Days #15 cap 12/23/24 Metoprolol Succinate (ER) [Toprol 25 mg PO DAILY 30 Days #30 tab 12/23/24 XL] Allergies Allergy/AdvReac Type Severity Reaction Status Date / Time No Known Allergies Allergy Verified 12/24/24 14:59 Review of Systems ROS Statement: Those systems with pertinent positive or pertinent negative responses have been documented in the HPI. ROS Other: All systems not noted in ROS Statement are negative. Past Medical History Past Medical History: Chest Pain / Angina, CVA/TIA, Deep Vein Thrombosis (DVT), Hypertension, Sleep Apnea/CPAP/BIPAP Additional Past Medical History / Comment(s): "Forgetful, gets distracted easily." Hx CVA no residual effects, date unknown. No CPAP use. Hx sinusitis, sinus headaches, nasal fracture as a young man, sleep disturbance. Hx DVT many yrs ago. History of Any Multi-Drug Resistant Organisms: None Reported Past Surgical History: Adenoidectomy, Coronary Bypass/CABG, Tonsillectomy Additional Past Surgical History / Comment(s): Unknown date and how many vessels with CABG. Past Anesthesia/Blood Transfusion Reactions: No Reported Reaction Past Psychological History: No Psychological Hx Reported Additional Psychological History / Comment(s): . Smoking Status: Never smoker Past Alcohol Use History: Occasional Past Drug Use History: None Reported - Past Family History Father Family Medical History: Coronary Artery Disease (CAD), Myocardial Infarction (RI) Additional Family Medical History / Comment(s): Father of a RI at 47 yrs of age. Mother Family Medical History: Cancer Additional Family Medical History / Comment(s): Mother of lung cancer at age 71yrs. General Exam Limitations: no limitations General appearance: alert, in no apparent distress, other (Vomit on patient's clothing) Head exam: Present: other (Laceration left parietal scalp.) Eye exam: Present: normal appearance, PERRL, EOMI. Absent: scleral icterus, conjunctival injection, periorbital swelling Pupils: Present: normal accommodation ENT exam: Present: normal exam, normal oropharynx, mucous membranes moist Neck exam: Present: normal inspection. Absent: tenderness, meningismus, lymphadenopathy Respiratory exam: Present: normal lung sounds bilaterally. Absent: respiratory distress, wheezes, rales, rhonchi, stridor Cardiovascular Exam: Present: regular rate, normal rhythm, normal heart sounds. Absent: systolic murmur, diastolic murmur, rubs, gallop, clicks GI/Abdominal exam: Present: soft, normal bowel sounds. Absent: distended, tenderness, guarding, rebound, rigid Extremities exam: Present: normal inspection, full ROM, normal capillary refill. Absent: tenderness, pedal edema, joint swelling, calf tenderness Neurological exam: Present: alert, oriented X3, CN II-XII intact Skin exam: Present: warm, dry, intact, normal color. Absent: rash Course Vital Signs 12/24/24 12/24/24 12/24/24 14:47 15:05 15:20 Temperature 97.9 F Pulse Rate 57 L 63 61 Respiratory 18 18 18 Rate Blood Pressure 126/80 126/80 119/65 O2 Sat by Pulse 96 96 97 Oximetry 12/24/24 12/24/24 15:35 15:55 Temperature 98.0 F Pulse Rate 63 65 Respiratory 18 18 Rate Blood Pressure 107/72 121/76 O2 Sat by Pulse 97 98 Oximetry - Reevaluation(s) Reevaluation #1: 12/24/24 15:29 Case discussed with [facility] Ceball[facility]. Accepting physician Dr. Quinn Medical Decision Making - Medical Decision Making Was pt. sent in by a medical professional or institution ([facility] Desir, DOOR TO DOOR SALES REPRESENTATIVE, urgent care, hospital, or custodial...) When possible be specific @ -No Did you speak to anyone other than the patient for history (EMS, parent, family, police, friend...)? What history was obtained from this source @ -EMS and nursing staff aiding in HPI past medical history. Did you review nursing and triage notes (agree or disagree)? Why? @ -I reviewed and agree with nursing and triage notes Were old charts reviewed (outside hosp., previous admission, EMS record, old EKG, old radiological studies, urgent care reports/EKG's, custodial records)? Report findings @ -Discharged summary from 12/23/24 patient admitted on 12-21-2024 for evaluation of left lower extremity edema and cellulitis with possible new onset of atrial fibrillation. Patient discharged home on 12-23-2024 on Keflex for cellulitis. Differential Diagnosis (chest pain, altered mental status, abdominal pain women, abdominal pain men, vaginal bleeding, weakness, fever, dyspnea, syncope, headache, dizziness, GI bleed, back pain, seizure, CVA, palpatations, mental health, musculoskeletal)? @ -Fracture, dislocation, contusion, hematoma, intracranial hemorrhage, concussion, abrasion, laceration this list does not like to be all-inclusive EKG interpreted by me (3pts min.). @ -As above X-rays interpreted by me (1pt min.). @ -None done CT interpreted by me (1pt min.). @ -CT brain C-spine showing acute subarachnoid hemorrhage in the high con of left frontal and parietal regions. Marked atrophy and chronic ischemic white matter demyelination. No significant mass effect. Cervical spine without evidence of acute trauma. U/S interpreted by me (1pt. min.). @ -None done What testing was considered but not performed or refused? (CT, X-rays, U/S, labs)? Why? @ -None What meds were considered but not given or refused? Why? @ -None Did you discuss the management of the patient with other professionals (pro fessionals i.e. , PA, DOOR TO DOOR SALES REPRESENTATIVE, lab, RT, psych nurse, psychosocial rehabilitation counselor, fire range technician, teacher, amphibious operations officer, therapeutic case manager)? Give summary @ -Case discussed with [facility] Ceball[facility] for trauma transfer. Accepting physician Dr. Quinn. Was smoking cessation discussed for >3mins.? @ -No Was critical care preformed (if so, how long)? @ -Yes, 31 minutes Were there social determinants of health that impacted care today? How? (Homelessness, low income, unemployed, alcoholism, drug addiction, transportation, low edu. Level, literacy, decrease access to med. care, skilled nursing, rehab)? @ -No Was there de-escalation of care discussed even if they declined (Discuss DNR or withdrawal of care, Hospice)? DNR status @ -No What co-morbidities impacted this encounter? (DM, HTN, Smoking, COPD, CAD, Cancer, CVA, ARF, Chemo, Hep., AIDS, mental health diagnosis, sleep apnea, morbid obesity)? @ -History of CVA, history of DVT, hypertension Was patient admitted / discharged? Hospital course, mention meds given and route, prescriptions, significant lab abnormalities, going to OR and other pertinent info. @ -Transferred. 79-year-old male presented to ER via EMS for evaluation of fall. Upon arrival code coag activated and CT brain and C-spine ordered/obtained. During my examination vital signs stable. Patient in no signs of acute distress. There is dried emesis on patient's clothing and blood noted to posterior scalp. Patient received 4 mg Zofran by EMS prior to arrival. Patient is AxO x 3 and is following commands appropriately. No acute neurological findings on exam. Patient is neurovascularly intact and denies any focal bony tenderness during examination. I was notified after initial examination by radiologist that CT brain/C-spine was significant for acute subarachnoid hemorrhage in the high con of left frontal and parietal regions. There is no cervical spine trauma. Given these findings patient received Kcentra, TXA and started on 5 mg Cardene drip. Head of bed elevated to 30 degrees. C-collar remained in place. Syncope workup initiated as patient reports he believes he "passed out". Serum alcohol pending. EKG showing a sinus rhythm with occasional PVC. Artifact present. Given subarachnoid hemorrhage and need for neurosurgery evaluation and close follow-up transfer was discussed and accepted by Poppy Ceballos, . Laceration repair defe rred to transfer team laceration was dressed and compressive dressing prior to transportation. Tetanus updated. Laboratory study results pending at time of transfer. Patient remained alert and oriented throughout emergency department stay and was transferred priority 1 in serious condition via EMS to [facility] Ceball[facility] for further evaluation and treatment. Case discussed with ED attending, Dr. Smith who also evaluated patient. Undiagnosed new problem with uncertain prognosis? @ -No Drug Therapy requiring intensive monitoring for toxicity (Heparin, Nitro, Insulin, Cardizem)? @ -No Were any procedures done? @ -No Diagnosis/symptom? @ -Subarachnoid hemorrhage/laceration/fall/rule out syncope Acute, or Chronic, or Acute on Chronic? @ -Acute Uncomplicated (without systemic symptoms) or Complicated (systemic symptoms)? @ -Complicated Side effects of treatment? @ -No Exacerbation, Progression, or Severe Exacerbation? @ -No Poses a threat to life or bodily function? How? (Chest pain, USA, RI, pneumonia, PE, COPD, DKA, ARF, appy, cholecystitis, CVA, Diverticulitis, Homicidal, Suicidal, threat to staff... and all critical care pts) @ -Yes, intracranial hemorrhage can be life-threatening - Lab Data Result diagrams: 12/24/24 15:07 12/24/24 15:07 Lab Results 12/24/24 12/24/24 12/24/24 Range/Units 15:05 15:07 15:07 WBC 8.41 (4.50-10.00) 10*3/uL RBC 3.82 L (4.40-5.60) 10*6/uL Hgb 13.5 (13.0-17.0) g/dL Hct 38.8 L (39.6-50.0) % MCV 101.6 H (80.0-97.0) fL MCH 35.3 H (27.0-32.0) pg MCHC 34.8 (32.0-37.0) g/dL Plt Count 161 (140-440) 10*3/uL MPV 9.2 L (9.5-12.2) fL Immature Gran % (Auto) 0.5 % Neutrophils % 73.8 % Lymphocytes % 17.1 % Monocytes % 8.0 % Eosinophils % 0.4 % Basophils % 0.2 % Immature Gran # 0.04 (0.00-0.04) 10*3/uL Neutrophils # 6.21 (1.80-7.70) 10*3/uL Lymphocytes # 1.44 (0.90-5.00) 10*3/uL Monocytes # 0.67 (0.20-1.00) 10*3/uL Eosinophils # 0.03 L (0.04-0.35) 10*3/uL Basophils # 0.02 (0.00-0.10) 10*3/uL PT 12.2 (10.0-12.5) sec INR 1.1 (<1.2) APTT 23.0 (22.0-30.0) sec Sodium (137-145) mmol/L Potassium (3.5-5.1) mmol/L Chloride (98-107) mmol/L Carbon Dioxide (22-30) mmol/L Anion Gap mmol/L BUN (9-20) mg/dL Creatinine (0.66-1.25) mg/dL Est GFR (CKD-EPI)AfAm (>60 ml/min/1.73 sqM) Est GFR (CKD-EPI)NonAf (>60 ml/min/1.73 sqM) Glucose (74-99) mg/dL POC Glucose (mg/dL) 108 (70-110) mg/dL POC Glu Salesperson Driver ID Adonis David Calcium (8.4-10.2) mg/dL Total Bilirubin (0.2-1.3) mg/dL AST (17-59) U/L ALT (4-49) U/L Alkaline Phosphatase (38-126) U/L Troponin I (0.000-0.034) ng/mL Total Protein (6.3-8.2) g/dL Albumin (3.5-5.0) g/dL Serum Alcohol mg/dL 12/24/24 12/24/24 Range/Units 15:07 15:07 WBC (4.50-10.00) 10*3/uL RBC (4.40-5.60) 10*6/uL Hgb (13.0-17.0) g/dL Hct (39.6-50.0) % MCV (80.0-97.0) fL MCH (27.0-32.0) pg MCHC (32.0-37.0) g/dL Plt Count (140-440) 10*3/uL MPV (9.5-12.2) fL Immature Gran % (Auto) % Neutrophils % % Lymphocytes % % Monocytes % % Eosinophils % % Basophils % % Immature Gran # (0.00-0.04) 10*3/uL Neutrophils # (1.80-7.70) 10*3/uL Lymphocytes # (0.90-5.00) 10*3/uL Monocytes # (0.20-1.00) 10*3/uL Eosinophils # (0.04-0.35) 10*3/uL Basophils # (0.00-0.10) 10*3/uL PT (10.0-12.5) sec INR (<1.2) APTT (22.0-30.0) sec Sodium 141 (137-145) mmol/L Potassium 3.5 (3.5-5.1) mmol/L Chloride 105 (98-107) mmol/L Carbon Dioxide 27 (22-30) mmol/L Anion Gap 9 mmol/L BUN 29 H (9-20) mg/dL Creatinine 1.20 (0.66-1.25) mg/dL Est GFR (CKD-EPI)AfAm 66 (>60 ml/min/1.73 sqM) Est GFR (CKD-EPI)NonAf 57 (>60 ml/min/1.73 sqM) Glucose 114 H (74-99) mg/dL POC Glucose (mg/dL) (70-110) mg/dL POC Glu Salesperson Driver ID Calcium 8.9 (8.4-10.2) mg/dL Total Bilirubin 2.1 H (0.2-1.3) mg/dL AST 28 (17-59) U/L ALT 14 (4-49) U/L Alkaline Phosphatase 108 (38-126) U/L Troponin I <0.012 (0.000-0.034) ng/mL Total Protein 6.1 L (6.3-8.2) g/dL Albumin 3.5 (3.5-5.0) g/dL Serum Alcohol <10 mg/dL - EKG Data -: EKG Interpreted by Me (EKG taken at 14: 51 showing a sinus rhythm with occasional PVCs. Ventricul) EKG Comments: EKG taken at 14: 51 showing a sinus rhythm with occasional PVC. Artifact present. No acute ST segment elevations. Ventricular rate 67, DC interval 201, QRS duration 110, QT/QTc 229/245 - Radiology Data Radiology results: report reviewed, image reviewed Disposition Clinical Impression: Fall, Subarachnoid hemorrhage, Laceration Disposition: OTHER INSTITUTION NOT DEFINED Condition: Serious Referrals: None,Stated [Primary Care Provider] - 1-2 days Time of Disposition: 15:38 - Out of Hospital Transfer - Req. Specs Out of Hospital Transfer - Requested Specifics: Other Emergency Center ([facility])
--- NOTE | 2024-12-24 15:02 | CT ---
EXAMINATION TYPE: CT brain cspine wo con DATE OF EXAM: 12/24/2024 COMPARISON: 07/23/2024 CLINICAL INDICATION: Male, 79 years old with history of pain; PHH, Code Coag. Fall on thinners. TECHNIQUE: CT scan of the head and cervical spine are performed without contrast. CT DLP: 1363.[address] CTDI: mGy Automated exposure control for dose reduction was used. Findings: Head CT: Ventricles, basal cisterns and sulci over our markedly enlarged consistent with marked generalized at rophy. There is no mass effect or shift of midline structures. There is marked decreased density in t he periventricular white matter consistent with marked chronic ischemic white matter demyelination. There is mild scattered subarachnoid hemorrhage left frontal and parietal regions. There is no acute intraparenchymal hemorrhage. Posterior fossa including the brainstem, fourth ventricle and cerebellar pontine angles are grossly n ormal. The intraorbital contents appear normal and symmetric. Visualized paranasal sinuses are well aerated. There is soft tissue swelling over the right parietal bone but there is no calvarial fracture. CT cervical spine: Craniovertebral junction relationships and prevertebral soft tissues are normal. The cervical vertebral segments are normal in height and alignment and there is no fracture subluxati on. There is mild degenerative disc disease C6-7 level. There is no bony encroachment of the cervical canal. The paraspinal soft tissues unremarkable. IMPRESSION: 1. Head CT: Acute subarachnoid hemorrhage in the high con of the left frontal and parietal regions. M arked atrophy and chronic ischemic white matter demyelination. No significant mass effect. 2. CT cervical spine: No acute trauma. Emergency room physician was notified of this important finding by phone call on 12/24/2024 at 3:00 PM [facility], , 12/24/2024 3:00 PM
[2024-12-24 15:07] LABS: Glucose,Whole Blood 108 mg/dL (70-110)
[2024-12-24 15:21] LABS: Basophils # (A) 0.02 10*3/uL (0.00-0.10); Basophils % (A) 0.2 %; Eosinophils # (A) 0.03 10*3/uL (0.04-0.35); Eosinophils % (A) 0.4 %; HCT 38.8 % (39.6-50.0); HGB 13.5 g/dL (13.0-17.0); Lymphocytes # (A) 1.44 10*3/uL (0.90-5.00); Lymphocytes % (A) 17.1 %; MCH 35.3 pg (27.0-32.0); MCHC 34.8 g/dL (32.0-37.0); MCV 101.6 fL (80.0-97.0); Monocytes # (A) 0.67 10*3/uL (0.20-1.00); Monocytes % (A) 8.0 %; Neutrophils # (A) 6.21 10*3/uL (1.80-7.70); Neutrophils % (A) 73.8 %; Platelet Count 161 10*3/uL (140-440); RBC 3.82 10*6/uL (4.40-5.60); RDW 14.1 % (11.5-14.5); WBC 8.41 10*3/uL (4.50-10.00)
[2024-12-24 15:30] LABS: INR 1.1 (<1.2); Partial Thromboplastin Time 23.0 sec (22.0-30.0); Prothrombin Time 12.2 sec (10.0-12.5)
[2024-12-24] MEDS ORDERED: niCARdipine 20 MG in SODIUM CHLORIDE 0.9% 192 ML IV SCH (15:30)
[2024-12-24] MEDS: TRANEXAMIC 1,000 MG/100ML-NACL 1,000 MG in SALINE 1 100ML.BAG IV STA (15:34)
[2024-12-24 15:35] LABS: ALT 14 U/L (4-49); AST 28 U/L (17-59); African American GFR (CKD) 66 (>60 ml/min/1.73 sqM); Albumin 3.5 g/dL (3.5-5.0); Alkaline Phosphatase 108 U/L (38-126); Anion Gap 9 mmol/L; Blood Urea Nitrogen 29 mg/dL (9-20); Calcium 8.9 mg/dL (8.4-10.2); Carbon Dioxide 27 mmol/L (22-30); Chloride 105 mmol/L (98-107); Glucose 114 mg/dL (74-99); Non-African American GFR(CKD) 57 (>60 ml/min/1.73 sqM); Potassium 3.5 mmol/L (3.5-5.1); Sodium 141 mmol/L (137-145); Total Protein 6.1 g/dL (6.3-8.2)
[2024-12-24] MEDS: EMPTY BAG 1 BAG with HUMAN PROTHROMBN CMPL-BALFAXAR 2,080 UNIT IV ONE (15:36)
[2024-12-24] MEDS: DIPH,PERTUS(ACELL)TETVAC-LF 0.5 ML VIAL IM ONE (15:38)
[2024-12-24] MEDS: Kcentra / Balfaxar PER PHARMACY 1 EACH MISC MISCELLANE SCH (15:51)
[2024-12-24 15:59] VITALS: BP 121/76; PULSE 65; TEMP 98
== END 2024-12-24 15:55 | disposition other institution (70) ==
LOC: EC 14:36
DX: S06.6X0A Traumatic subarachnoid hemorrhage without loss of consciousness, initial encounter (principal); S01.01XA Laceration without foreign body of scalp, initial encounter; I10 Essential (primary) hypertension; Z86.73 Personal history of transient ischemic attack (TIA), and cerebral infarction without residual deficits; Z23 Encounter for immunization; W18.30XA Fall on same level, unspecified, initial encounter
CPT/HCPCS: 99291; 90471; 96365; 96368; 36415; 93005; 80053; 84484; 85025; 85610; 85730; 80320; 72125; 70450; 90715; J7165